=== PATIENT | male | born 1950 | race Caucasian/White ===

== ENCOUNTER 2017-06-21 10:48 | Day surgery (SDC) | payer MEDICARE, BC ==
[2017-06-15 15:35] VITALS: BMI 28.3
[~2017-06-21 10:48] MED LIST: ALPRAZolam 0.25 MG TAB PO PRN; ALPRAZolam 0.5 MG TAB PO PRN; ASPIRIN 325 MG TAB PO STA; NITROGLYCERIN SL TABS 0.4 MG TAB SUBLINGUAL PRN; SODIUM CHLORIDE 0.9% 1,000 ML in EMPTY BAG 1 BAG IV ONE
[2017-06-21] MEDS ORDERED: LIDOCAINE 2% INJ 20 MG/ML (20 ML MDV) ONE (12:22)
[2017-06-21] MEDS ORDERED: VERAPAMIL 2.5 MG/ML 2 ML AMP ONE (12:23)
[2017-06-21] MEDS ORDERED: MIDAZOLAM 2 MG/2 ML VIAL ONE (12:27)
[2017-06-21] MEDS ORDERED: MIDAZOLAM 2 MG/2 ML VIAL IVP ONE (12:29)
[2017-06-21] MEDS ORDERED: LIDOCAINE 2% INJ 20 MG/ML SQ ONE (12:31)
[2017-06-21] MEDS ORDERED: HEPARIN SODIUM 1,000 UN/ML (10ML VL) ONE (12:34)
[2017-06-21] MEDS ORDERED: VERAPAMIL SYRINGE (5 MG/10 ML) INTRAARTER ONE ×2 (12:36→12:49)
[2017-06-21] MEDS ORDERED: IOHEXOL 350 MG/ML 125ML BOTTLE INJ ONE (12:49)
[2017-06-21] MEDS ORDERED: RX INFO: IV CONTRAST WAS GIVEN 1 EACH MISC MISCELLANE PRN (13:02)
[2017-06-21] MEDS ORDERED: SODIUM CHLORIDE 0.9% 1,000 ML IV SCH (13:15)
--- NOTE | 2017-06-21 13:54 | CC ---
CARDIAC CATHETERIZATION REPORT DATE OF SERVICE: 06/21/2017 PERFORMING PHYSICIAN: Femi Landaverde MD, [employer]. PROCEDURE PERFORMED: 1. Selective right and left coronary angiogram. 2. Left heart catheterization. INDICATION: This is a pleasant 66-year-old gentleman who sees Dr. Peng as an outpatient at [facility], who is known to have coronary artery disease and prior stenting of the RCA was performed in [place] in 2000, was experiencing chest discomfort. He underwent a myocardial perfusion imaging stress test and that revealed anterior ischemia. In view of that, heart catheterization was recommended. APPROACH: Right radial artery. COMPLICATION: None. LEVEL OF SEDATION: Moderate with sedation length of 22 minutes. PROCEDURE DESCRIPTION: After obtaining an informed consent, the patient was brought to the Cardiac Reproduction Production Manager. The right radial artery was cannulated using micropuncture technique and a micropuncture wire passed easily, then I placed a 6-Divehi sheath in the right common femoral artery. Subsequently, I did give the patient 2 mg of verapamil IA and 10,000 units of heparin IV. After that, I did selective right and left coronary angiogram using JR4 and JL3.5 catheters. Subsequently, I did left heart catheterization and that was performed using the JR4 catheter which flipped into the LV. then I did pullback per protocol. The procedure was completed without any complication. SELECTIVE CORONARY ANGIOGRAM: 1. The right coronary artery is a large caliber vessel and it is a dominant vessel. The RCA is chronically occluded in the proximal portion and fills by collateral from the left coronary system. The RCA distally seems to be intermediate in size. The RCA in the mid portion is stented as well. 2. The left main is a large left main and the left main itself is involved in the plaque in the LAD. The left main bifurcates into the circumflex, ramus intermedius, and left anterior descending artery. 3. The left circumflex is a medium caliber vessel and it is a nondominant vessel. The ostial left circumflex has mild disease only. The mid left circumflex appeared to be angiographically normal and the left circumflex distally appeared to be angiographically normal. 4. The ramus intermedius is a large caliber vessel and it seems to have an ostial disease appeared to be in the range of appeared to be in the range of 70% to 80%. 5. The left anterior descending artery, the proximal LAD appears to have a critical lesion in the range of 70% to 80%. The LAD after the lesion gives rise into a large diagonal branch which worked as dual LAD system. That diagonal branch appeared to have a tight lesion in the midportion about 70%. The LAD in the mid and distal portion becomes a medium caliber vessel with mild diffuse disease only. HEMODYNAMICS: The left ventricular end-diastolic pressure was 8 mmHg and no gradient was identified across the aortic valve. CONCLUSION: 1. Chronic total occlusion of the mid right coronary artery which seems to be in-stent occlusion and the RCA fills by collaterals from the left coronary system. 2. The distal left main appeared to be involved in a complex plaque plaque involving the distal left main coronary artery and involving the ostial ramus intermedius and ostial LAD. 3. Severe disease involving the ostial/proximal ramus intermedius. 4. Critical disease involving the ostial/proximal left anterior descending artery. POSTPROCEDURE MANAGEMENT: 1. At this point, maximize medical treatment. 2. Evaluation for coronary artery bypass grafting. MMODL / IJN: [id number] /
[2017-06-21] MEDS ORDERED: ATORVASTATIN 10 MG TAB PO SCH (21:00)
[2017-06-22] MEDS ORDERED: LEVOTHYROXINE 75 MCG TAB PO SCH (06:30)
[2017-06-22 08:23] LABS: Basophils % (A) 0 %; Eosinophils # (A) 0.1 k/uL (0-0.7); Eosinophils % (A) 3 %; HCT 50.8 % (39.0-53.0); HGB 16.1 gm/dL (13.0-17.5); Lymphocytes # (A) 1.5 k/uL (1.0-4.8); Lymphocytes % (A) 27 %; MCH 31.1 pg (25.0-35.0); MCHC 31.7 g/dL (31.0-37.0); MCV 98.2 fL (80.0-100.0); Mean Platelet Volume 7.2; Monocytes # (A) 0.3 k/uL (0-1.0); Monocytes % (A) 6 %; Neutrophils # (A) 3.4 k/uL (1.3-7.7); Neutrophils % (A) 62 %; Platelet Count 197 k/uL (150-450); RBC 5.18 m/uL (4.30-5.90); RDW 12.9 % (11.5-15.5); WBC 5.5 k/uL (3.8-10.6)
[2017-06-22 08:32] LABS: INR 1.1 (<1.2); Partial Thromboplastin Time 23.7 sec (22.0-30.0); Prothrombin Time 10.5 sec (9.0-12.0)
[2017-06-22 08:43] LABS: ALT 50 U/L (21-72); AST 24 U/L (17-59); Alkaline Phosphatase 91 U/L (38-126); Anion Gap 10 mmol/L; Blood Urea Nitrogen 13 mg/dL (9-20); Calcium 9.6 mg/dL (8.4-10.2); Carbon Dioxide 27 mmol/L (22-30); Chloride 102 mmol/L (98-107); Cholesterol 174 mg/dL (<200); Glucose 101 mg/dL (74-99); HDL Cholesterol 44 mg/dL (40-60); LDL Cholesterol,Calculated 102 mg/dL (0-99); Magnesium 1.9 mg/dL (1.6-2.3); Potassium 4.6 mmol/L (3.5-5.1); Sodium 139 mmol/L (137-145); Total Bilirubin 0.6 mg/dL (0.2-1.3); Total Protein 6.5 g/dL (6.3-8.2); Triglycerides 140 mg/dL (<150)
[2017-06-22] MEDS ORDERED: LISINOPRIL 10 MG TAB PO SCH (09:00)
[2017-06-22 10:10] LABS: T4, Free (Free Thyroxine) 1.78 ng/dL (0.78-2.19)
[2017-06-22 10:27] LABS: Appearance,Urine Clear (Clear); Bilirubin,Urine Negative (Negative); Blood,Urine Negative (Negative); Color,Urine Yellow; Glucose,Urine (UA) Negative (Negative); Ketones,Urine Negative (Negative); Leukocyte Esterase,Urine Negative (Negative); Nitrite,Urine Negative (Negative); Protein,Urine Negative (Negative); Specific Gravity,Urine 1.008 (1.001-1.035); Urobilinogen,Urine <2.0 mg/dL (<2.0)
[2017-06-22] MEDS ORDERED: METOPROLOL TARTRATE 12.5 MG TAB PO SCH (10:30)
--- NOTE | 2017-06-22 11:06 | XR ---
EXAMINATION TYPE: XR chest 2V DATE OF EXAM: 06/22/2017 COMPARISON: NONE HISTORY: Preopen cardiac surgery. TECHNIQUE: Frontal and lateral views of the chest are obtained. FINDINGS: There is no focal air space opacity, pleural effusion, or pneumothorax seen. The cardiac silhouette size is within normal limits. The osseous structures are intact. IMPRESSION: No acute cardiopulmonary process.
[2017-06-22 11:31] VITALS: BP 119/69; PULSE 60; RESP 16; TEMP 98
--- NOTE | 2017-06-22 15:28 | P.CNPUL ---
History of Present Illness Consult date: 06/22/17 Requesting physician: Jamison Murillo Reason for consult: chest pain, other Chief complaint: Symptomatic multivessel coronary artery disease History of present illness: Kayode is a 66-year-old white male patient follows with Dr. Peng at [place], who presented for an elective heart catheterization and Dr. Reynolds on 06/21/2017 for his symptoms of chest discomfort. Patient has history of coronary artery disease and prior stenting of his RCA in [place] in 2000. He had a myocardial perfusion imaging stress test was positive for anterior ischemia. The heart catheterization was performed via right radial artery approach. During the cath he was found to have chronic total occlusion of his mid RCA, with in-stent occlusion and collateral circulation from the left coronary system. The distal left main was involved in a complex plaque involving the distal left main and the ostial ramus intermedius and ostial LAD. There was severe disease involving the ostial/proximal ramus intermedius. And there was critical disease involving the ostial/proximal LAD. Other medical history includes hypertension, hypothyroidism, psoriasis, Patient is a current every day smoker, less than a pack a day for 49 years. He does have regular consumption of 2 beers per night. He denies experiencing dyspnea on a regular basis. Patient was referred to cardiothoracic surgery for evaluation for coronary artery bypass grafting. This referral was in regards to evaluation of patient's preop pulmonary status. Review of Systems All systems: negative Constitutional: Denies chills, Denies fever Eyes: denies blurred vision, denies pain Ears, nose, mouth and throat: Denies headache, Denies sore throat Cardiovascular: Denies chest pain, Denies shortness of breath Respiratory: Denies cough Gastrointestinal: Denies abdominal pain, Denies diarrhea, Denies nausea, Denies vomiting Musculoskeletal: Denies myalgias Integumentary: Denies pruritus, Denies rash Neurological: Denies numbness, Denies weakness Psychiatric: Denies anxiety, Denies depression Endocrine: Denies fatigue, Denies weight change Past Medical History Past Medical History: Hypertension, Skin Disorder, Thyroid Disorder Additional Past Medical History / Comment(s): psoriasis History of Any Multi-Drug Resistant Organisms: None Reported Past Surgical History: Appendectomy, Heart Catheterization With Stent Additional Past Surgical History / Comment(s): heart stents x2,cervical x2 Past Anesthesia/Blood Transfusion Reactions: No Reported Reaction Date of Last Stent Placement:: 2000 Past Psychological History: No Psychological Hx Reported Smoking Status: Current every day smoker Past Alcohol Use History: Daily Additional Past Alcohol Use History / Comment(s): started smoking approx 17,< 1ppd,2 beers per night Past Drug Use History: None Reported - Past Family History Mother Family Medical History: Cancer Father Family Medical History: Coronary Artery Disease (CAD) Medications and Allergies Home Medications Medication Instructions Recorded Confirmed Type Aspirin 325 mg PO DAILY 06/15/17 06/21/17 History Ergocalciferol [Vitamin D2 50,000 unit PO GOSS 06/15/17 06/21/17 History (DRISDOL)] Folic Acid 1 mg PO MOTUWETHFRSA 06/15/17 06/15/17 History Levothyroxine Sodium [Synthroid] 150 mcg PO QAM 06/15/17 06/21/17 History Lisinopril [Zestril] 10 mg PO DAILY 06/15/17 06/21/17 History Methotrexate Sodium [Methotrexate] 17.5 mg PO GOSS 06/15/17 06/21/17 History Simvastatin [Zocor] 20 mg PO HS 06/15/17 06/21/17 History Allergies Allergy/AdvReac Type Severity Reaction Status Date / Time No Known Allergies Allergy Verified 06/15/17 15:25 Physical Exam Vitals: Vital Signs Temp Pulse Pulse Resp BP BP Pulse Ox 06/22/17 11:31 98 F 60 16 119/69 95 06/22/17 08:00 97.6 F 68 18 108/66 92 L 06/22/17 04:00 16 06/22/17 03:38 98.0 F 63 16 94/53 93 L 06/22/17 00:00 16 06/21/17 23:52 98.1 F 61 16 109/67 92 L 06/21/17 20:00 16 06/21/17 19:23 98.1 F 59 L 16 104/64 92 L 06/21/17 16:30 63 113/72 95 06/21/17 15:30 64 109/78 96 06/21/17 15:00 65 118/70 92 L 06/21/17 14:00 64 108/66 94 L 06/21/17 13:45 79 110/79 93 L 06/21/17 13:39 97.8 F 71 18 110/57 96 06/21/17 13:30 65 95/60 95 06/21/17 13:15 64 16 111/70 94 L 06/21/17 13:00 74 16 116/70 95 Intake and Output 06/21/17 06/22/17 06/22/17 22:59 06:59 14:59 Intake Total 860 440 Balance 860 440 Intake: Intake, IV Titration 500 Amount Sodium Chloride 0.9% 1, 500 000 ml @ 125 mls/hr IV . Q8H MAURILIO Rx#:[id number] Oral 360 440 Other: # Voids 1 GENERAL EXAM: Alert, pleasant, 66-year-old white male, comfortable in no apparent distress. HEAD: Normocephalic/atraumatic. EYES: Normal reaction of pupils, equal size. Conjunctiva pink, sclera white. NOSE: Clear with pink turbinates. THROAT: No erythema or exudates. NECK: No masses, no JVD, no thyroid enlargement, no adenopathy. CHEST: No chest wall deformity. Symmetrical expansion. LUNGS: Equal air entry with no crackles, wheeze, rhonchi or dullness. CVS: Regular rate and rhythm, normal S1 and S2, no gallops, no murmurs, no rubs ABDOMEN: Soft, nontender. No hepatosplenomegaly, normal bowel sounds, no guarding or rigidity. EXTREMITIES: No clubbing, no edema, no cyanosis, 2+ pulses and upper and lower extremities. Right radial puncture site is clean dry and intact, TR band is in place. MUSCULOSKELETAL: Muscle strength and tone normal. SPINE: No scoliosis or deformity SKIN: No rashes CENTRAL NERVOUS SYSTEM: Alert and oriented -3. No focal deficits, tone is normal in all 4 extremities. PSYCHIATRIC: Alert and oriented -3. Appropriate affect. Intact judgment and insight. Results - Laboratory Findings CBC and BMP: 06/22/17 07:52 06/22/17 07:52 PT/INR, D-dimer PT 10.5 sec (9.0-12.0) 06/22/17 07:52 INR 1.1 (<1.2) 06/22/17 07:52 Abnormal lab findings: Abnormal Labs 06/22/17 07:52 Glucose 101 H LDL Cholesterol, Calc 102 H TSH 0.042 L - Diagnostic Findings Chest x-ray: report reviewed Assessment and Plan Plan: Assessment: #1. Symptomatic, multivessel coronary artery disease involving severe disease of the ostial/proximal ramus intermedius, critical disease involving the ostial/ proximal LAD, distal left main, and chronic total occlusion of in-stent mid RCA #2. Hypertension #3. Nicotine dependence, ongoing, less than a pack a day for 49 years #4. Hypothyroidism #5. Psoriasis Plan: Spirometry PFT was reviewed, showed FEV1 of 94% of predicted. Patient's chest x -ray has been reviewed, no acute cardiopulmonary process noted. Patient is a low operative risk based on the results of the bedside spirometry, physical exam and history. We'll continue to follow with you I performed a history & physical examination of the patient and discussed their management with my nurse practitioner, Eileen Rice. I reviewed the nurse practitioner's note and agree with the documented findings and plan of care. Lung sounds are clear to auscultation. The findings and the impression was discussed with the patient. I attest to the documentation by the nurse practitioner. Time with Patient: Greater than 30
--- NOTE | 2017-06-22 15:45 | P.GSCN ---
History of Present Illness Consult date: 06/22/17 Reason for Consult: Coronary artery disease, evaluation for myocardial vascularization surgery. Requesting physician: Femi Landaverde History of present illness: This is a 66-year-old woman who is followed by Dr. Juaquin Peng on an outpatient basis. Patient has a past medical history which includes hypertension, hyperlipidemia, history of coronary artery disease with previous PTCA in 2000 in [facility], current tobacco dependence, hypothyroid, psoriasis on methotrexate, and family history of early onset coronary artery disease with his father being diagnosed before the age of 60. Recently, the patient has had complaints of progressing shortness of breath with activity. The patient denies any complaints of chest pain, nausea, vomiting, chills, fevers, dizziness or syncope. He followed up with his primary care physician and underwent a 12-lead EKG which was abnormal. Subsequently the patient was referred to Dr. Landaverde from cardiology for further workup and evaluation. On the patient underwent a Lexiscan Cardiolite stress test which showed ST depression of more than 1 mm over the baseline ST depression to his inferior lateral lead with frequent PVCs and couplets. This was highly suggestive of silent ischemia. On 05/25/2017 a 2-D echocardiogram was completed which showed trace mitral valve regurgitation, trace aortic valve regurgitation, a normal left ventricular size and systolic function with an ejection fraction of 55% and a dilated aortic root that measures 4.5 cm. Due to the patient's increased shortness of breath, history of previous stent placement, abnormal EKG and stress test patient was advised to undergo an elective cardiac catheterization. On 06/21/2017 after obtaining consent he underwent an elective heart catheterization which demonstrated a chronically occluded mid right coronary artery with an IntraStent stenosis which fills by collaterals from the left coronary system, a distal left main which showed involvement in the plaque in the LAD, mild disease to his left circumflex, a 70-80% stenosis to his ostial ramus intermedius coronary artery, a 70-80% stenosis to his proximal left anterior descending coronary artery and a 70% stenosis to his midportion of his diagonal coronary artery. Subsequently due to the above-mentioned results findings a consult was placed for Dr. Murillo from cardiothoracic surgery for evaluation for possible myocardial revascularization surgery. Review of Systems A 14 point review of systems was completed and was negative except as mentioned in the HPI. Past Medical History Past Medical History: Coronary Artery Disease (CAD), Hyperlipidemia, Hypertension, Skin Disorder (Psoriasis on methotrexate), Thyroid Disorder History of Any Multi-Drug Resistant Organisms: None Reported Past Surgical History: Appendectomy, Heart Catheterization With Stent Additional Past Surgical History / Comment(s): Coronary stents in 2000 at [facility],cervical fusion to his C4-C5, C5-C6. Past Anesthesia/Blood Transfusion Reactions: No Reported Reaction Date of Last Stent Placement:: 2000 Past Psychological History: No Psychological Hx Reported Smoking Status: Current every day smoker (Smokes 6 cigars per day.) Past Alcohol Use History: Daily (Drinks 2-7 beers per week.) Past Drug Use History: None Reported - Past Family History Mother Family Medical History: Cancer (Skin cancer) Father Family Medical History: Coronary Artery Disease (CAD) Medications and Allergies Home Medications Medication Instructions Recorded Confirmed Type Aspirin 325 mg PO DAILY 06/15/17 06/21/17 History Ergocalciferol [Vitamin D2 50,000 unit PO GOSS 06/15/17 06/21/17 History (DRISDOL)] Folic Acid 1 mg PO MOTUWETHFRSA 06/15/17 06/15/17 History Levothyroxine Sodium [Synthroid] 150 mcg PO QAM 06/15/17 06/21/17 History Lisinopril [Zestril] 10 mg PO DAILY 06/15/17 06/21/17 History Methotrexate Sodium [Methotrexate] 17.5 mg PO GOSS 06/15/17 06/21/17 History Simvastatin [Zocor] 20 mg PO HS 06/15/17 06/21/17 History Allergies Allergy/AdvReac Type Severity Reaction Status Date / Time No Known Allergies Allergy Verified 06/15/17 15:25 Surgical - Exam Vital Signs Temp Pulse Resp BP Pulse Ox 98.2 F 82 18 158/93 95 06/21/17 11:20 06/21/17 11:20 06/21/17 11:20 06/21/17 11:20 06/21/17 11:20 - General well developed, well nourished, no distress, no pain - Eyes PERRL, normal ocular movement - ENT normal pinna, normal nares, normal mucosa, no hearing loss, no congestion - Neck Neck is supple no lymphadenopathy. no masses, no bruits, trachea midline, no venous distension - Respiratory Lung sounds are essentially clear throughout, diminished bilateral bases. Respirations are symmetrical and nonlabored. Oxygen saturation are 95% on room air. He is achieving 2600 mL on his incentive spirometry. Bedside FEV1 completed by respiratory therapist 3.11 which is 94% of predicted. - Cardiovascular Regular rhythm and rate. S1 and S2 present, negative for S3, gallop or murmur. Remote telemetry showing normal sinus rhythm with ST depression heart rate 64. No edema present. Peripheral pulses palpable. - Abdomen Abdomen is soft, nontender and nondistended. No guarding or rigidity. No organomegaly. Active bowel sounds all 4 abdominal quadrants. - Genitourinary Deferred - Rectum Deferred - Integumentary Large birthmark to his left scapular area. no rash, no growths - Neurologic normal coordination, normal sensation - Musculoskeletal normal gait, normal posture - Psychiatric oriented to time, oriented to person, oriented to place, speech is normal, memory intact Results - Labs 06/22/17 07:52 06/22/17 07:52 Abnormal Lab Results - Last 24 Hours (Table) 06/22/17 Range/Units 07:52 Glucose 101 H (74-99) mg/dL LDL Cholesterol, Calc 102 H (0-99) mg/dL TSH 0.042 L (0.465-4.680) mIU/L Diabetes panel 06/22/17 Range/Units 07:52 Sodium 139 (137-145) mmol/L Potassium 4.6 (3.5-5.1) mmol/L Chloride 102 (98-107) mmol/L Carbon Dioxide 27 (22-30) mmol/L BUN 13 (9-20) mg/dL Creatinine 0.81 (0.66-1.25) mg/dL Glucose 101 H (74-99) mg/dL Calcium 9.6 (8.4-10.2) mg/dL AST 24 (17-59) U/L ALT 50 (21-72) U/L Alkaline Phosphatase 91 (38-126) U/L Total Protein 6.5 (6.3-8.2) g/dL Albumin 4.0 (3.5-5.0) g/dL Triglycerides 140 (<150) mg/dL HDL Cholesterol 44 (40-60) mg/dL Thyroid panel 06/22/17 Range/Units 07:52 TSH 0.042 L (0.465-4.680) mIU/L Calcium panel 06/22/17 Range/Units 07:52 Calcium 9.6 (8.4-10.2) mg/dL Albumin 4.0 (3.5-5.0) g/dL Pituitary panel 06/22/17 Range/Units 07:52 Sodium 139 (137-145) mmol/L Potassium 4.6 (3.5-5.1) mmol/L Chloride 102 (98-107) mmol/L Carbon Dioxide 27 (22-30) mmol/L BUN 13 (9-20) mg/dL Creatinine 0.81 (0.66-1.25) mg/dL Glucose 101 H (74-99) mg/dL Calcium 9.6 (8.4-10.2) mg/dL TSH 0.042 L (0.465-4.680) mIU/L Adrenal panel 06/22/17 Range/Units 07:52 Sodium 139 (137-145) mmol/L Potassium 4.6 (3.5-5.1) mmol/L Chloride 102 (98-107) mmol/L Carbon Dioxide 27 (22-30) mmol/L BUN 13 (9-20) mg/dL Creatinine 0.81 (0.66-1.25) mg/dL Glucose 101 H (74-99) mg/dL Calcium 9.6 (8.4-10.2) mg/dL Total Bilirubin 0.6 (0.2-1.3) mg/dL AST 24 (17-59) U/L ALT 50 (21-72) U/L Alkaline Phosphatase 91 (38-126) U/L Total Protein 6.5 (6.3-8.2) g/dL Albumin 4.0 (3.5-5.0) g/dL - Imaging Comments: Lexiscan Cardiolite stress test results reviewed which was completed on 2017. Stress test showed ST depression of more than 1 [address] the baseline [address] depression inferior lateral lead with frequent PVCs and couplets. This was highly suggestive of silent ischemia. 2-D echocardiogram results reviewed which was completed on 05/25/2017. It showed trace mitral valve regurgitation, trace aortic valve regurgitation, a normal left ventricular systolic function with an ejection fraction of 55%, and a dilated aortic root measuring 4.5 cm. Carotid duplex results reviewed which was completed on 05/26/2017. Carotid duplex showed 41-59% stenosis at both carotid sinuses and proximal internal carotid arteries. Bedside FEV1 completed showed a base of 3.11 and was 94% of predicted. Chest x-ray: report reviewed, image reviewed Additional studies: Cardiac catheterization films and report were reviewed. Assessment and Plan (1) Hypertension Current Visit: Yes Status: Acute Code(s): I10 - ESSENTIAL (PRIMARY) HYPERTENSION SNOMED Code(s): 44576516 (2) Hyperlipidemia Current Visit: Yes Status: Acute Code(s): E78.5 - HYPERLIPIDEMIA, UNSPECIFIED SNOMED Code(s): 65246750 (3) Hypothyroid Current Visit: Yes Status: Acute Code(s): E03.9 - HYPOTHYROIDISM, UNSPECIFIED SNOMED Code(s): 98091729 (4) Family history of early CAD Current Visit: Yes Status: Acute Code(s): Z82.49 - FAMILY HX OF ISCHEM HEART DIS AND OTH DIS OF THE CIRC SYS SNOMED Code(s): 764552449 (5) Psoriasis Current Visit: Yes Status: Acute Code(s): L40.9 - PSORIASIS, UNSPECIFIED SNOMED Code(s): 6485806 (6) Tobacco dependence Current Visit: Yes Status: Acute Code(s): F17.200 - NICOTINE DEPENDENCE, UNSPECIFIED, UNCOMPLICATED SNOMED Code(s): 63296333 (7) Presence of stent in coronary artery in patient with coronary artery disease Current Visit: Yes Status: Acute Code(s): I25.10 - ATHSCL HEART DISEASE OF [place] CORONARY ARTERY W/O ANG PCTRS; Z95.5 - PRESENCE OF CORONARY ANGIOPLASTY IMPLANT AND GRAFT SNOMED Code(s): 160133382 Plan: The patient was seen and examined. His chart and diagnostics were reviewed. Preoperative testing was initiated, bedside FEV1 was obtained, and vein mapping. Preoperative teaching initiated with the patient, his and son. Questions answered to the best of my ability. The patient will be discharged home today when okay with Dr. Landaverde from cardiology, he will follow up on Tuesday , 06/24/2017 at 11:[address] Murillo in his office. 5 m walk test was obtained by cardiac rehab, time 1: 3.18 seconds, time 2: 3.22 seconds, time 3: 3.41 seconds. Maximize medical therapy at this time, metoprolol 12.5 mg by mouth twice a day initiated, continue statin, AMADO inhibitor and aspirin. Hold methotrexate. The importance of smoking cessation has been discussed with the patient. STS risk score has been calculated 0.562% risk of mortality and will be discussed with the patient on Tuesday during his office visit by Dr. Murillo. Thank you Dr. Landaverde for this consult and we look for to working with you in the care of your patient. Time with Patient: Greater than 30
--- NOTE | 2017-06-22 19:25 | DS ---
DISCHARGE SUMMARY ADMISSION DATE: June 21, 2017. DISCHARGE DATE: June 22, 2017 BRIEF HISTORY: This is a pleasant 66-year-old gentleman with a known hypertension and dyslipidemia who was experiencing chest discomfort and underwent myocardial perfusion imaging stress test came in to be abnormal. In view of that, heart catheterization was recommended. The patient was admitted to the hospital and underwent heart catheterization yesterday and that revealed severe triple-vessel coronary artery disease with chronic total occlusion of the RCA and critical disease involving the LAD and ramus intermedius. Surgical consult was placed and the patient was seen and evaluated by Dr. Murillo who is planning to perform coronary artery bypass grafting on the patient in the next few days. The patient is going to be discharged home today. He is on maximize medical treatment and I will follow up with him at [facility] and he is going to see Dr. Murillo in the office in the next few days and planning for surgery in the next week. MMODL / IJN: [id number] /
[2017-06-22 19:52] LABS: Hepatitis A Antibody IgM Non-Reactive (Non-Reactive); Hepatitis B Core IgM Non-Reactive (Non-Reactive)
[2017-06-22 21:58] LABS: Hemoglobin A1C 6.2 % (4.0-6.0)
--- NOTE | 2017-06-29 10:30 | P.ARTDOP ---
Arterial Doppler LOWER EXTREMITY ARTERIAL DOPPLER: DATE OF SERVICE: 06/22/2017 Reason for study: Pre-CABG. Doppler waveforms: Multiphasic bilaterally throughout. Pulse volume recording: []. Pressure gradients: None. Ankle-brachial indices: Greater than 1 bilaterally. Toe pressures: [] on the right, [] on the left Impression: Normal study.
--- NOTE | 2017-06-29 10:32 | P.VSCSTY ---
Greater Saphenous Vein Mapping This is bilateral lower extremity greater saphenous vein mapping. Date of service 06/22/2017 Vein quality and ultrasound appearance no wall thickening or intraluminal thrombus. Vein size groin right 6.3 x 6.2 groin left 9 x 7.9 High thigh right 6.9 x 6.1 high thigh left 6.9 x 6.0 Mid thigh right 4.4 x 3.9 mid thigh left 6.2 x 5.2 Above-knee right 4.2 x 3.3 above-knee left 5.2 x 3.5 Below knee right 3.7 x 3.6 below-knee left 3.5 x 3.1 Mid calf right 2.4 x 2.0 mid calf left 2.8 x 2.3 Ankle right 2.6 x 1.9 ankle left 3.4 x 2.6 Impression usable bilateral greater saphenous veins. Upper thighs somewhat oversized on both sides..
== END 2017-06-22 15:05 | disposition home or self-care (01) ==
LOC: CATHCVL 10:48 → 3OBS 13:24 → CATHCVL 06-22 15:05
PROVIDERS: ATTEND Internal Medicine Interventional Cardiology
DX: I25.110 Atherosclerotic heart disease of native coronary artery with unstable angina pectoris (principal); I25.82 Chronic total occlusion of coronary artery; I10 Essential (primary) hypertension; F17.290 Nicotine dependence, other tobacco product, uncomplicated; I77.810 Thoracic aortic ectasia; I35.1 Nonrheumatic aortic (valve) insufficiency; E78.5 Hyperlipidemia, unspecified; I73.9 Peripheral vascular disease, unspecified; Z82.49 Family history of ischemic heart disease and other diseases of the circulatory system; E03.9 Hypothyroidism, unspecified; L40.9 Psoriasis, unspecified; Z95.5 Presence of coronary angioplasty implant and graft; Z79.82 Long term (current) use of aspirin; Z79.899 Other long term (current) drug therapy
CPT/HCPCS: 94150; 93458; 86900; 86901; 84439; 83880; 80061; 80053; 80074; 84443; 83735; 84484; 85025; 85610; 85730; 86850; 86920; 81003; 87070; 87086; 83036; 71046; 93970; 93922; C1894; J2001; J2250; J1644; Q9967; 93923

== ENCOUNTER → 2017-07-06 | Outpatient (CLI) | payer MEDICARE, BC ==
[2017-07-06 11:43] LABS: INR 1.1 (<1.2); Partial Thromboplastin Time 22.5 sec (22.0-30.0); Prothrombin Time 10.6 sec (9.0-12.0)
[2017-07-06 11:44] LABS: HCT 48.8 % (39.0-53.0); HGB 17.1 gm/dL (13.0-17.5); MCH 32.7 pg (25.0-35.0); Mean Platelet Volume 7.2; Platelet Count 202 k/uL (150-450); RBC 5.23 m/uL (4.30-5.90); RDW 13.1 % (11.5-15.5); WBC 5.1 k/uL (3.8-10.6)
[2017-07-06 11:52] LABS: MCV 93.3 fL (80.0-100.0)
[2017-07-06 11:58] LABS: ALT 49 U/L (21-72); AST 24 U/L (17-59); Albumin 4.5 g/dL (3.5-5.0); Alkaline Phosphatase 91 U/L (38-126); Anion Gap 11 mmol/L; Blood Urea Nitrogen 21 mg/dL (9-20); Calcium 9.9 mg/dL (8.4-10.2); Carbon Dioxide 27 mmol/L (22-30); Chloride 102 mmol/L (98-107); Glucose 94 mg/dL (74-99); Potassium 5.7 mmol/L (3.5-5.1); Sodium 140 mmol/L (137-145); Total Bilirubin 0.5 mg/dL (0.2-1.3); Total Protein 7.3 g/dL (6.3-8.2)
== END | disposition home or self-care (01) ==
LOC: LABPAT 10:31
PROVIDERS: ATTEND Surgery
DX: Z01.818 Encounter for other preprocedural examination (principal); E11.52 Type 2 diabetes mellitus with diabetic peripheral angiopathy with gangrene
CPT/HCPCS: 80053; 85027; 85610; 85730; 86850; 86900; 86901; 86920

== ENCOUNTER 2017-07-11 05:37 | Inpatient (IN) | payer MEDICARE, BC ==
[~2017-07-11 05:37] MED LIST changes: +ALBUMIN HUMAN 25% 50 ML IV ONE; +ALBUMIN HUMAN 5% 500 ML IVPB ONE; -ALPRAZolam 0.25 MG TAB PO PRN; -ALPRAZolam 0.5 MG TAB PO PRN; +ASPIRIN 325 MG TAB PO ONE; -ASPIRIN 325 MG TAB PO STA; +ATORVASTATIN 10 MG TAB PO ONE; +CALCIUM CHLORIDE 100 MG/ML 10 ML SYRINGE IV ONE; +CHLORHEXIDINE GLUCONATE 15 ML CUP MUCOUS MEM ONE; +CLEVIDIPINE BUTYRATE 25 MG in EMPTY BAG 1 BAG IV ONE; +DEXTROSE 5% IN WATER 1,000 ML with POTASSIUM CHLORIDE 110 MEQ, MAGNESIUM SULFATE 16 MEQ... IV ONE; +DEXTROSE 5% IN WATER 1,000 ML with POTASSIUM CHLORIDE 25 MEQ, SODIUM CHLORIDE 2.5MEQ/ML... IV ONE; +HEPARIN SODIUM 1,000 UN/ML (10ML VL) IV ONE; +HEPARIN SODIUM,PORCINE 5,000 UNIT in SODIUM CHLORIDE 0.9% 500 ML IV ONE; +INSULIN REGULAR 100 UNIT in SODIUM CHLORIDE 0.9% 100 ML IV ONE; +LACTATED RINGERS 1,000 ML IV ONE; +LACTATED RINGERS 1,000 ML IV SCH; +MAGNESIUM SULFATE MG 500 MG/ML VIAL IV ONE; +MANNITOL 25% 12.5 GM/50 ML VIAL IV ONE; +METOPROLOL TARTRATE 12.5 MG TAB PO ONE; +MUPIROCIN 2% OINT 22 GM TUBE NASAL ONE; +NITROGLYCERIN SL TABS 0.4 MG TAB SUBLINGUAL ONE; -NITROGLYCERIN SL TABS 0.4 MG TAB SUBLINGUAL PRN; +NITROGLYCERIN-D5W PMX 25 MG/250 ML BTL IV ONE; +NITROGLYCERIN-D5W PMX 50 MG in DEXTROSE/WATER 1 250ML.BAG IV ONE; +NOREPINEPHRIN 4 MG-0.9% NS PMX 4 MG/250 ML ML IV ONE; +PAPAVERINE 360 MG in SODIUM CHLORIDE 0.9% 90 ML IV ONE; +PHENYLEPHRINE 40 MG in SODIUM CHLORIDE 0.9% 250 ML IV ONE; +PHENYLEPHRINE-0.9% NACL SYG 1 MG/10 ML SYRINGE IV ONE; +PROPOFOL 1,000 MG/100 ML VIAL IV ONE; +PROTAMINE SULFATE 10 MG/ML 25 ML VIAL IV ONE; +PROTAMINE SULFATE 250 MG in EMPTY BAG 1 BAG IV ONE; +SODIUM BICARB 8.4% 50 ML SYR (1 MEQ/ML) IV ONE; +SODIUM CHLORIDE 0.9% 1,000 ML IV ONE; -SODIUM CHLORIDE 0.9% 1,000 ML in EMPTY BAG 1 BAG IV ONE; +TRANEXAMIC ACID 2,000 MG in SODIUM CHLORIDE 0.9% 180 ML IV ONE; +ceFAZolin 1,000 MG in SODIUM CHLORIDE 0.9% IRRIGATIO 1,000 ML IRRIGATION ONE; +ceFAZolin 2,000 MG in SODIUM CHLORIDE 0.9% 30 ML IVPB ONE
[2017-07-11] MEDS ORDERED: LIDOCAINE 1% 20 ML VIAL (10MG/ML) FOR IV START INTRADERMA ONE (06:44)
[2017-07-11] MEDS ORDERED: LIDOCAINE 2% SYG (PF) 100 MG/5 ML ONE (08:00)
[2017-07-11] MEDS ORDERED: HEPARIN SODIUM,PORCINE 10,000 UNIT/ML 1 ML VIAL ONE (08:00)
[2017-07-11] MEDS ORDERED: TRANEXAMIC ACID 1,000 MG/10 ML VIAL ONE (08:00)
[2017-07-11] MEDS ORDERED: PROPOFOL 10 MG/ML 20 ML VIAL IV ONE (08:00)
[2017-07-11] MEDS ORDERED: GLYCOPYRROLATE 0.2 MG/ML 2 ML VIAL ONE (08:00)
[2017-07-11] MEDS ORDERED: ALBUMIN HUMAN 5% 500 ML VIAL IVPB ONE (08:00)
[2017-07-11] MEDS ORDERED: SODIUM CHLORIDE 0.9% IRRIG 1,000 ML BTL IRRIGATION ONE (08:00)
[2017-07-11] MEDS ORDERED: ePHEDrine SULFATE/0.9% NACL/PF 50 MG/5 ML SYRINGE IV ONE (08:00)
[2017-07-11] MEDS ORDERED: MAGNESIUM SULFATE 4 MEQ/ML 2 ML VIAL ONE (08:00)
[2017-07-11] MEDS ORDERED: MIDAZOLAM 2 MG/2 ML VIAL ONE (08:00)
[2017-07-11] MEDS ORDERED: fentaNYL (PF) 50 MCG/ML 50 ML VIAL ONE (08:00)
[2017-07-11] MEDS ORDERED: fentaNYL (PF) 50 MCG/ML 2 ML AMP ONE (08:00)
[2017-07-11] MEDS ORDERED: PROTAMINE SULFATE 10 MG/ML 25 ML VIAL IV ONE (08:00)
[2017-07-11] MEDS ORDERED: VECURONIUM 10 MG VIAL IV ONE (08:00)
[2017-07-11] MEDS ORDERED: MORPHINE SULFATE 10 MG/ML SYRINGE ONE (08:00)
[2017-07-11] MEDS ORDERED: ELECTROLYTE-R (PH 7.4) 1,000 ML IV.SOLN IV ONE (08:00)
[2017-07-11] MEDS ORDERED: SODIUM CHLORIDE 0.9% 250 ML BAG ONE (08:00)
[2017-07-11] MEDS ORDERED: ONDANSETRON 4 MG/2 ML VIAL IVP PRN (16:03)
[2017-07-11] MEDS ORDERED: BENZOCAINE/MENTHOL LOZENG 1 EACH LOZENGE MUCOUS MEM PRN (16:03)
[2017-07-11] MEDS ORDERED: MORPHINE SULFATE 4 MG/ML SYRINGE IVP PRN (16:03)
[2017-07-11] MEDS ORDERED: CALCIUM GLUCONATE 2,000 MG in SODIUM CHLORIDE 0.9% 100 ML IVPB PRN (16:03)
[2017-07-11] MEDS ORDERED: Potassium Replacement Protocol 1 EACH MISC MISCELLANE PRN (16:03)
[2017-07-11] MEDS ORDERED: INSULIN REGULAR 100 UNIT in SODIUM CHLORIDE 0.9% 100 ML IV SCH (16:03)
[2017-07-11] MEDS ORDERED: Magnesium Replacement Protocol 1 EACH MISC MISCELLANE PRN (16:03)
[2017-07-11] MEDS ORDERED: METOCLOPRAMIDE 5 MG/ML 2 ML VIAL IVP PRN (16:03)
[2017-07-11] MEDS ORDERED: CLEVIDIPINE BUTYRATE 25 MG in EMPTY BAG 1 BAG IV SCH (16:03)
[2017-07-11] MEDS ORDERED: NITROGLYCERIN-D5W PMX 50 MG in DEXTROSE/WATER 1 250ML.BAG IV SCH (16:03)
[2017-07-11] MEDS ORDERED: Phosphorus Replacement Protoco 1 EACH MISC MISCELLANE PRN (16:03)
[2017-07-11] MEDS ORDERED: NALOXONE 0.4 MG/ML 1 ML VIAL IV PRN (16:11)
[2017-07-11] MEDS: PROPOFOL 1,000 MG in EMPTY BAG 1 BAG IV SCH ×2 (16:15→21:52)
[2017-07-11 16:28] LABS: Glucose,Whole Blood 83 mg/dL (75-99)
[2017-07-11 16:43] LABS: Basophils % (A) 0 %; Eosinophils # (A) 0.1 k/uL (0-0.7); Eosinophils % (A) 1 %; HCT 32.4 % (39.0-53.0); Lymphocytes # (A) 1.2 k/uL (1.0-4.8); Lymphocytes % (A) 17 %; MCH 32.3 pg (25.0-35.0); MCHC 34.9 g/dL (31.0-37.0); MCV 92.4 fL (80.0-100.0); Mean Platelet Volume 7.1; Monocytes # (A) 0.3 k/uL (0-1.0); Monocytes % (A) 4 %; Neutrophils # (A) 5.8 k/uL (1.3-7.7); Neutrophils % (A) 78 %; RBC 3.51 m/uL (4.30-5.90); RDW 13.4 % (11.5-15.5); WBC 7.4 k/uL (3.8-10.6)
[2017-07-11 16:44] LABS: HGB 11.3 gm/dL (13.0-17.5); Platelet Count 99 k/uL (150-450)
[2017-07-11 16:47] LABS: INR 1.3 (<1.2); Partial Thromboplastin Time 29.4 sec (22.0-30.0)
[2017-07-11 16:50] LABS: ABG Base Excess -2.6 mmol/L; ABG HCO3 26 mmol/L (21-25); ABG Oxygen Saturation 97.2 % (94-97); ABG PO2 110 mmHg (83-108); ABG TCO2 28 mmol/L (19-24)
[2017-07-11] MEDS ORDERED: ALBUMIN HUMAN 5% 250 ML IVPB ONE (16:53)
[2017-07-11 16:54] LABS: ALT 30 U/L (21-72); AST 32 U/L (17-59); Albumin 3.6 g/dL (3.5-5.0); Alkaline Phosphatase 31 U/L (38-126); Anion Gap 8 mmol/L; Blood Urea Nitrogen 12 mg/dL (9-20); Calcium 8.2 mg/dL (8.4-10.2); Carbon Dioxide 25 mmol/L (22-30); Chloride 109 mmol/L (98-107); Glucose 72 mg/dL (74-99); Magnesium 2.6 mg/dL (1.6-2.3); Potassium 4.7 mmol/L (3.5-5.1); Sodium 142 mmol/L (137-145); Total Bilirubin 0.7 mg/dL (0.2-1.3); Total Protein 5.2 g/dL (6.3-8.2)
[2017-07-11 16:58] LABS: ABG PH 7.18 (7.35-7.45)
[2017-07-11 16:59] LABS: ABG PCO2 70 mmHg (35-45)
--- NOTE | 2017-07-11 17:12 | OP ---
OPERATIVE REPORT DATE OF SERVICE: 07/11/2017. SURGEON: Jamison Murillo MD. FAMILY PRACTICE DOCTOR: Musa Holloway and Dav Sandhu. PREOPERATIVE DIAGNOSES: 1. Triple-vessel coronary artery disease. 2. Totally occluded right coronary artery. 3. Preserved left ventricular function. 4. Psoriasis, on methotrexate. 5. Hypertension. 6. Hyperlipidemia. 7. Peripheral arterial disease. 8. Nicotine abuse. POSTOPERATIVE DIAGNOSES: 1. Triple-vessel coronary artery disease. 2. Totally occluded right coronary artery. 3. Preserved left ventricular function. 4. Psoriasis, on methotrexate. 5. Hypertension. 6. Hyperlipidemia. 7. Peripheral arterial disease. 8. Nicotine abuse. 9. Mild dilatation of the ascending aorta with diffuse coronary artery disease. PROCEDURE: 1. Coronary artery bypass grafting x4 using the in situ skeletonized right internal mammary artery, crossing the midline to the left anterior descending artery, the skeletonized in situ left internal mammary artery to the ramus intermedius artery, reverse saphenous vein graft from the aorta to the diagonal artery, reverse saphenous vein graft from the aorta to early rising posterior descending artery. 2. Endoscopic harvesting of right greater saphenous vein. 3. Intraoperative transesophageal echocardiogram and epiaortic scanning. 4. Intraoperative graft flow measurements using the Medistim system if indicated. INDICATIONS FOR SURGERY: Patient is a 66-year-old gentleman referred by Dr. Landaverde with diagnosis of triple-vessel carotid artery disease. He had an occluded collateralized right coronary artery. He has an LAD system that has a long diagonal, almost dual system, and disease in the ramus intermedius artery. No disease in a smaller circ vessel. The right coronary artery is totally collateralized by the left side. Left ventricular function is preserved. The patient is brought in today for coronary artery bypass grafting. We will be using bilateral internal mammary in view of his age. His methotrexate has been stopped for around 1 month now and has been 1 month with smoking cessation. Risks, benefits, and alternatives were discussed with him. He understood and agreed to proceed. DESCRIPTION OF PROCEDURE: The patient had a right internal jugular Jay-Mari catheter inserted in the preoperative holding area and a right radial arterial line. He had normal cardiac index and good PA pressure. When this was completed, he was was brought to the operating room where general endotracheal anesthesia was induced uneventfully. The patient received 2 g of cefazolin intravenously. The chest, abdomen and both lower extremities were prepped and draped using ChloraPrep after insertion of a Huber catheter. Transesophageal echocardiogram revealed preserved left ventricle function and an aortic root at 3.8 cm and no significant valvular abnormality. Midline sternotomy was performed and no bone wax was used. The left navneet sternum was elevated. The left internal mammary artery was harvested in a totally skeletonized fashion. The left pleura was intentionally opened in this process and was drained with a 28-Bolivian chest tube. The same maneuver was repeated on the right side with the right navneet sternum elevated and the right internal mammary artery harvested in a totally skeletonized fashion. The right pleura was intentionally opened in this process and was drained with a 28-Bolivian chest tube. In the same setting, the right greater saphenous vein was harvested endoscopically from groin to above ankle level after administration of 2500 units of heparin. Mediastinal fat transected between 2 ties and epiaortic scanning revealed no protruding atheroma in the ascending aorta. Pericardium was opened in an inverted T-fashion and a pericardial cradle was created. Findings included a mildly enlarged aorta that was measured at around 4 cm, thickened intima, normal size heart with diffuse coronary artery disease that was calcific in nature proximally and at the level of the right coronary artery. After systemic heparinization after placement of respective pledgeted pursestring, aortic cannulation with a 21-Bolivian soft flow cannula, right atrial appendage cannulation with a dual stage venous cannula was performed. Antegrade as well as retrograde cardioplegia catheter were placed. Both mammary arteries were clipped distally before the bifurcation and transected and had an excellent pulsatile flow in them. They were thin-walled, around 1.75 mm in diameter. Next, cardioplegia bypass was initiated and with the heart empty and warm, we looked at the target. The left anterior descending artery was thin-walled and on the small side in its mid to distal aspect. The diagonal artery was longer, however, was also diffusely diseased with calcific plaques proximally and midway. The ramus intermedius artery was intramyocardial and severely calcified, but we found a spot in its mid to distal aspect which was soft. The right coronary artery system was calcified after the bifurcation. There was an early rising posterior descending artery and it was bypassed in its proximal aspect where it was thin-walled around 1.5 mm in diameter. The aorta was clamped and myocardial protection was achieved with initial dose of antegrade cold blood cardioplegia, followed by a dose of retrograde cold blood cardioplegia. All subsequent doses were given retrograde as well through the constructed vein graft to the posterior descending artery, which was done first. So, the first distal anastomosis was between a segment of very good quality saphenous vein graft and the early rising posterior descending artery using Prolene 7-0 in continuous fashion. The second distal anastomosis was in the left internal mammary artery and ramus intermedius artery, which was around 2 mm diameter, intramyocardial in a soft area after a calcified segment using Prolene 7-0 in continuous fashion. The mammary artery was tacked to the surrounding myocardial muscle with a Prolene 7-0. The third distal anastomosis was between another segment of vein and the diagonal artery using Prolene 7-0 in continuous fashion. The fourth and last distal anastomosis was between the right internal mammary artery and the left anterior descending artery using Prolene 7-0 in continuous fashion. That artery reached the left anterior descending artery with adequate length and no tension. However, it would not reach the diagonal artery in the same setting to perform a sequential anastomosis, which we entertained. Satisfied with the distal anastomosis, attention was moved to performing the two proximal anastomoses. Rewarming was started. Two buttons. Two buttons, one on the anterior aspect of the proximal aorta, and one on the posterolateral aspect of the mid ascending aorta, were punched out and the two proximal anastomoses with 2 vein grafts were completed using Prolene 2-0 in a continuous fashion. Lidocaine and magnesium were given before unclamping the aorta. Both veins were de-aired before establishing flow in them. The patient required one single desufflation to regain spontaneous sinus rhythm. Preliminary graft flow measurements revealed patent grafts. After a period of reperfusion, will wean off cardioplegia bypass without the need of any inotropic or vasopressor support. Two monopolar atrial pacing wires were affixed to the right atrial appendage. One bipolar ventricular pacing wires was driven via the anterior aspect of the right ventricle and the exit site required a Prolene 6-0 to control bleeding at that level. The rest of the full dose protamine was given. Decannulation followed. The aortic cannulation site and the retrograde cardioplegia site as well as the antegrade cardioplegia site required reinforcement with pledgeted Prolene. Also, I placed a transverse pledgetted Prolene 4-0 at the distal aspect of the proximal anastomosis of the vein graft going to the diagonal artery. One substernal chest tube was placed. Graft flow measurements at this point revealed a flow of 127 mL/minute in the vein going to the diagonal artery, 43 mL/minute in the vein going to the posterior descending artery with excellent flows. The flow into the right internal mammary artery to the left anterior descending artery was 39 mL/minute, pulsatility index of 2.1, diastolic filling of 75% showing excellent graft. The flow into the left internal mammary artery to the ramus intermedius artery was 15 mL/minute, pulsatility index of 2.6, and diastolic filling of 79% with what seems to be a very well-functioning graft. Pericardial fat was approximated over the heart and the aorta and the right internal mammary artery crossing the midline. After ensuring adequate hemostasis and hemodynamic and after correct sponge, instrument, and needle count, the sternum was approximated using five [id number] pineal cable after interposing Fibrillar between the sternal edges. Thorough irrigation of cefazolin followed. The rest of the closure proceeded in layers. Skin glue sealant was applied. The patient received 1 L of Cell Saver blood and did not receive any blood bank product. He was transferred to the ICU, atrially paced at 80 in view of sinus bradycardia, mean arterial pressure of 82, PA pressure of 17 with normal EKG. The DEEPTI showed preserved left ventricular function. MMODL / IJN: [id number] /
[2017-07-11 17:26] LABS: ABG Base Excess -1.6 mmol/L; ABG HCO3 26 mmol/L (21-25); ABG Oxygen Saturation 91.9 % (94-97); ABG PCO2 59 mmHg (35-45); ABG PH 7.25 (7.35-7.45); ABG PO2 68 mmHg (83-108); ABG TCO2 28 mmol/L (19-24)
[2017-07-11] MEDS ORDERED: NOREPINEPHRIN 16 MG-0.9%NS PMX 16 MG/250 ML ML IV SCH (17:30)
[2017-07-11 17:34] LABS: Glucose,Whole Blood 69 mg/dL (75-99)
[2017-07-11 17:39] LABS: Glucose,Whole Blood 91 mg/dL (75-99)
--- NOTE | 2017-07-11 17:42 | XR ---
EXAMINATION TYPE: XR chest 1V portable DATE OF EXAM: 07/11/2017 COMPARISON: 06/22/2017 HISTORY: Cardiac surgery TECHNIQUE: Single frontal view of the chest is obtained. FINDINGS: Endotracheal tube is in good position. There is right jugular catheter with tip in the claudia n pulmonary artery. There are bilateral chest tubes. There is no sign of a pneumothorax. There is mil d pulmonary vascular congestion. Cardiac silhouette is enlarged. IMPRESSION: There is evidence of mild heart failure. No pneumothorax.
[2017-07-11] MEDS: ceFAZolin IN SWFI 2 GM/20 ML SYRINGE IVP SCH ×2 (17:43→23:53)
[2017-07-11] MEDS: ACETAMINOPHEN IV (For NPO) 1,000 MG in EMPTY BAG 1 BAG IVPB SCH ×2 (17:47→23:53)
[2017-07-11] MEDS: LACTATED RINGERS 1,000 ML IV SCH (18:02)
[2017-07-11] MEDS: ALBUMIN HUMAN 5% 250 ML in EMPTY BAG 1 BAG IVPB PRN ×2 (18:15→18:16)
[2017-07-11 18:40] LABS: Glucose,Whole Blood 105 mg/dL (75-99)
[2017-07-11 19:11] LABS: Glucose,Whole Blood 120 mg/dL (75-99)
[2017-07-11] MEDS: IPRATROPIUM-ALBUTEROL 3 ML NEB INHALATION SCH ×2 (19:21→23:16)
[2017-07-11 19:26] LABS: Basophils % (A) 0 %; Eosinophils % (A) 1 %; HCT 29.4 % (39.0-53.0); HGB 10.1 gm/dL (13.0-17.5); Lymphocytes # (A) 0.7 k/uL (1.0-4.8); Lymphocytes % (A) 12 %; MCHC 34.3 g/dL (31.0-37.0); MCV 93.4 fL (80.0-100.0); Mean Platelet Volume 7.6; Monocytes # (A) 0.3 k/uL (0-1.0); Monocytes % (A) 5 %; Neutrophils # (A) 4.4 k/uL (1.3-7.7); Neutrophils % (A) 81 %; Platelet Count 101 k/uL (150-450); RBC 3.15 m/uL (4.30-5.90); RDW 13.6 % (11.5-15.5); WBC 5.4 k/uL (3.8-10.6)
--- NOTE | 2017-07-11 19:31 | P.CNPUL ---
History of Present Illness Consult date: 07/11/17 Requesting physician: Jamison Murillo Reason for consult: other (Status post CABG) Chief complaint: status post CABG History of present illness: this is a 66-year-old white male with triple-vessel coronary artery disease, this was documented on recent cardiac catheterization, patient has preserved LV function. Patient underwent elective myocardial revascularization today, postoperatively he was on mechanical ventilation, and this consult was initiated. Initial ventilator settings with IMV of 12, volume of 550, FiO2 of 100%, and the 5. ABG reflected significant respiratory acidosis, has the patient was placed on assist-control mode of mechanical ventilation initially and a of 16 then increased rate of 20. Repeat ABG is pending. Chest x-ray postoperatively showed adequate placement of endotracheal Q, all lines and chest usual noted to be in place. All labs were reviewed including 2 different sets of ABGs. Review of Systems cannot be obtained, patient is on mechanical ventilation, Past Medical History Past Medical History: Coronary Artery Disease (CAD), Hyperlipidemia, Hypertension, Skin Disorder, Thyroid Disorder Additional Past Medical History / Comment(s): psoriasis. History of Any Multi-Drug Resistant Organisms: None Reported Past Surgical History: Appendectomy, Back Surgery, Heart Catheterization, Heart Catheterization With Stent Additional Past Surgical History / Comment(s): heart stents x2 (2000).,heart cath (06/21/17 mph) cervical surgery x2. Past Anesthesia/Blood Transfusion Reactions: No Reported Reaction, Motion Sickness Date of Last Stent Placement:: 2000 Past Psychological History: No Psychological Hx Reported Smoking Status: Former smoker Past Alcohol Use History: Daily Additional Past Alcohol Use History / Comment(s): QUIT SMOKING 06/2017. , STARTED SMOKING AGE 17 SMOKED , 1PPD. DRINKS 2 BEERS PER NIGHT. Past Drug Use History: None Reported - Past Family History Mother Family Medical History: Cancer Father Family Medical History: Coronary Artery Disease (CAD) Medications and Allergies Home Medications Medication Instructions Recorded Confirmed Type Aspirin 325 mg PO DAILY 06/15/17 07/11/17 History Ergocalciferol [Vitamin D2 50,000 unit PO GOSS 06/15/17 07/11/17 History (DRISDOL)] Folic Acid 1 mg PO MOTUWETHFRSA 06/15/17 07/11/17 History Levothyroxine Sodium [Synthroid] 150 mcg PO QAM 06/15/17 07/11/17 History Lisinopril [Zestril] 10 mg PO DAILY 06/15/17 07/11/17 History Methotrexate Sodium [Methotrexate] 17.5 mg PO GOSS 06/15/17 07/11/17 History Simvastatin [Zocor] 20 mg PO HS 06/15/17 07/11/17 History Metoprolol Tartrate [Lopressor] 25 mg PO BID 07/04/17 07/11/17 History Allergies Allergy/AdvReac Type Severity Reaction Status Date / Time No Known Allergies Allergy Verified 07/11/17 16:35 Physical Exam Vitals: Vital Signs Temp Pulse Pulse Resp BP BP Pulse Ox 07/11/17 18:15 99.1 F 84 98 07/11/17 18:13 82 07/11/17 18:01 84 21 07/11/17 18:00 84 91 L 07/11/17 17:45 84 93 L 07/11/17 17:30 84 82 L 07/11/17 17:15 81 96 07/11/17 17:00 97.3 F L 84 16 97 07/11/17 16:45 87 95 07/11/17 16:30 84 100 07/11/17 16:21 84 99 07/11/17 06:18 155/89 07/11/17 06:07 98.0 F 52 L 18 152/79 98 Intake and Output 07/11/17 07/11/17 07/11/17 06:59 14:59 22:59 Intake Total 200 3 1720.7 Output Total 4410 Balance 200 3 -2689.3 Intake: IV 200 3 316 Lactated Ringers 1,000 ml 200 @ 50 mls/hr IV .Q20H [facility]URIL[facility] Rx#:[id number] NS Pressure Bag 36 [place] 80 Intake, IV Titration 1404.7 Amount ACETAMINOPHEN IV (For NPO 100 ) 1,000 mg In Empty Bag 1 bag @ 400 mls/hr IVPB Q6HR PENDING SALE TO [facility] Rx#:[id number] Albumin Human 5% 250 ml 1250 As IVPB .STK-MED ONE Rx#: [id number] Propofol 1,000 mg In 24.7 Empty Bag 1 bag @ Titrate IV .Q0M PENDING SALE TO [facility] Rx#: [id number] ceFAZolin 2,000 mg In 30 Sodium Chloride 0.9% 30 ml @ Per Protocol IVPB ONCE ONE Rx#:[id number] Output: Chest Tube Drainage 660 Chest Tube Left Anterior 277 Chest Chest Tube Mediastinal 285 Chest Tube Right Anterior 98 Chest Drainage 35 Right Calf 35 Urine 1215 Estimated Blood Loss 2500 Other: Voiding Method Indwelling Catheter ABP, PAP, CO, CI - Last 8 Hours Arterial Blood Pressure 112/52 Arterial Blood Pressure 116/59 Arterial Blood Pressure 103/48 Arterial Blood Pressure 106/59 Arterial Blood Pressure 108/60 Arterial Blood Pressure 89/41 Arterial Blood Pressure 80/43 Arterial Blood Pressure 99/48 Pulmonary Artery Pressure 36/15 Pulmonary Artery Pressure 39/25 Pulmonary Artery Pressure 36/20 Pulmonary Artery Pressure 39/23 Pulmonary Artery Pressure 33/20 Pulmonary Artery Pressure 25/16 Pulmonary Artery Pressure 34/18 Pulmonary Artery Pressure 30/17 Cardiac Output 7.6 Cardiac Output 7.2 Cardiac Output 7.2 Cardiac Output 7.2 Cardiac Output 7.2 Cardiac Output 7.6 Cardiac Output 7.6 Cardiac Index 3.9 Cardiac Index 3.7 physical exam reveals a 66-year-old white male, on mechanical ventilation, in no form of respiratory distress. Head: Atraumatic, normocephalic. HEENT: PERRLA, EOMI, throat is clear, moist mucous membranes noted, endotracheal tube is in place, no neck masses, no JVD, no stridor. Chest: Good breath sounds bilaterally, no crackles or rhonchi or wheezes. Symmetrical chest expansion. cardiac: Normal S1 and S2, positive pericardial rub. No S3 gallop. No murmur was appreciated. Abdomen: Soft, nontender, no thyromegaly, no rebound, no guarding, positive bowel sounds. Extremities: Good distal pulses bilaterally, no clubbing, no edema, no cyanosis. Neurologic: Cannot be assessed, patient is sedated on mechanical ventilation. Psychiatric: Cannot be assessed. Musculoskeletal: Cannot be assessed. Results - Laboratory Findings CBC and BMP: 07/11/17 16:25 07/11/17 16:25 ABG ABG pH 7.25 (7.35-7.45) L 07/11/17 17:23 ABG pCO2 59 mmHg (35-45) H 07/11/17 17:23 ABG pO2 68 mmHg (83-108) L 07/11/17 17:23 ABG O2 Saturation 91.9 % (94-97) L 07/11/17 17:23 PT/INR, D-dimer PT 12.0 sec (9.0-12.0) 07/11/17 16:25 INR 1.3 (<1.2) H 07/11/17 16:25 Abnormal lab findings: Abnormal Labs 07/06/17 07/11/17 07/11/17 10:36 16:25 16:25 RBC 3.51 L Hgb 11.3 L D Hct 32.4 L Plt Count 99 L D INR ABG pH ABG pCO2 ABG pO2 ABG HCO3 ABG Total CO2 ABG O2 Saturation Chloride 109 H Glucose 72 L POC Glucose (mg/dL) Calcium 8.2 L Magnesium 2.6 H Alkaline Phosphatase 31 L Total Protein 5.2 L Crossmatch See Detail 07/11/17 07/11/17 07/11/17 16:25 16:47 17:23 RBC Hgb Hct Plt Count INR 1.3 H ABG pH 7.18 L* 7.25 L ABG pCO2 70 H* 59 H ABG pO2 110 H 68 L ABG HCO3 26 H 26 H ABG Total CO2 28 H 28 H ABG O2 Saturation 97.2 H 91.9 L Chloride Glucose POC Glucose (mg/dL) Calcium Magnesium Alkaline Phosphatase Total Protein Crossmatch 07/11/17 07/11/17 07/11/17 17:23 18:38 19:09 RBC Hgb Hct Plt Count INR ABG pH ABG pCO2 ABG pO2 ABG HCO3 ABG Total CO2 ABG O2 Saturation Chloride Glucose POC Glucose (mg/dL) 69 L 105 H 120 H Calcium Magnesium Alkaline Phosphatase Total Protein Crossmatch - Diagnostic Findings Chest x-ray: image reviewed ( Chest x-ray postoperatively was reviewed.) Assessment and Plan Assessment: Impression: 1 Status post CABG for triple-vessel coronary artery disease postoperative day #0. 2 history of multiple comorbidities including hypertension, psoriasis, hypercholesterolemia, and hypothyroidism. Recommendation: Continue present course of mechanical ventilation, ventilator settings were adjusted accordingly to the ABG, expect significant improvement in his respiratory acidosis, keep the patient on assist control mode of mechanical ventilation with a relatively high rate, we will likely wean and extubate later the same day. Chest x-ray was reviewed We will continue to follow. Time with Patient: Greater than 30
[2017-07-11 19:35] LABS: ABG Base Excess -0.9 mmol/L; ABG HCO3 25 mmol/L (21-25); ABG Oxygen Saturation 98.9 % (94-97); ABG PCO2 46 mmHg (35-45); ABG PH 7.34 (7.35-7.45); ABG PO2 145 mmHg (83-108); ABG TCO2 26 mmol/L (19-24)
[2017-07-11 20:20] LABS: Glucose,Whole Blood 121 mg/dL (75-99)
[2017-07-11 21:20] LABS: Glucose,Whole Blood 125 mg/dL (75-99)
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
[2017-07-11 22:01] LABS: Glucose,Whole Blood 122 mg/dL (75-99)
[2017-07-11 22:07] LABS: Basophils % (A) 0 %; Eosinophils % (A) 0 %; HCT 29.1 % (39.0-53.0); HGB 9.7 gm/dL (13.0-17.5); Lymphocytes # (A) 0.6 k/uL (1.0-4.8); Lymphocytes % (A) 11 %; MCH 31.1 pg (25.0-35.0); MCHC 33.4 g/dL (31.0-37.0); MCV 93.1 fL (80.0-100.0); Mean Platelet Volume 9.2; Monocytes # (A) 0.3 k/uL (0-1.0); Monocytes % (A) 5 %; Neutrophils # (A) 4.8 k/uL (1.3-7.7); Neutrophils % (A) 83 %; RBC 3.13 m/uL (4.30-5.90); RDW 13.6 % (11.5-15.5); WBC 5.8 k/uL (3.8-10.6)
[2017-07-11 22:08] LABS: Platelet Count 86 k/uL (150-450)
[2017-07-11] MEDS: MUPIROCIN 2% OINT 22 GM TUBE NASAL SCH (22:31)
[2017-07-11 23:28] LABS: Glucose,Whole Blood 120 mg/dL (75-99)
[2017-07-11] MEDS: HEPARIN SODIUM,PORCINE 5,000 UNIT/ML 1 ML VIAL SQ SCH (23:53)
[2017-07-12 00:09] LABS: Glucose,Whole Blood 120 mg/dL (75-99)
[2017-07-12 01:00] LABS: Glucose,Whole Blood 125 mg/dL (75-99)
[2017-07-12 02:21] LABS: Glucose,Whole Blood 128 mg/dL (75-99)
[2017-07-12 02:32] LABS: ABG Base Excess -0.5 mmol/L; ABG HCO3 25 mmol/L (21-25); ABG Oxygen Saturation 94.2 % (94-97); ABG PCO2 40 mmHg (35-45); ABG PH 7.39 (7.35-7.45); ABG PO2 65 mmHg (83-108); ABG TCO2 26 mmol/L (19-24)
[2017-07-12] MEDS: IPRATROPIUM-ALBUTEROL 3 ML NEB INHALATION SCH ×4 (02:52→19:48)
[2017-07-12 03:16] LABS: Glucose,Whole Blood 130 mg/dL (75-99)
[2017-07-12 04:18] LABS: Glucose,Whole Blood 126 mg/dL (75-99)
[2017-07-12 04:38] LABS: Basophils % (A) 0 %; Eosinophils % (A) 0 %; HCT 29.4 % (39.0-53.0); HGB 10.2 gm/dL (13.0-17.5); Lymphocytes # (A) 0.6 k/uL (1.0-4.8); Lymphocytes % (A) 11 %; MCH 31.8 pg (25.0-35.0); MCHC 34.5 g/dL (31.0-37.0); Mean Platelet Volume 7.5; Monocytes # (A) 0.3 k/uL (0-1.0); Monocytes % (A) 5 %; Neutrophils # (A) 4.5 k/uL (1.3-7.7); Neutrophils % (A) 82 %; Platelet Count 105 k/uL (150-450); RDW 13.5 % (11.5-15.5); WBC 5.5 k/uL (3.8-10.6)
[2017-07-12 04:50] LABS: INR 1.2 (<1.2); Partial Thromboplastin Time 27.2 sec (22.0-30.0); Prothrombin Time 11.3 sec (9.0-12.0)
[2017-07-12 05:01] LABS: Glucose,Whole Blood 123 mg/dL (75-99)
[2017-07-12 05:01] LABS: Ionized Calcium 4.9 mg/dL (4.5-5.3)
[2017-07-12 05:14] LABS: ALT 26 U/L (21-72); AST 35 U/L (17-59); Albumin 3.7 g/dL (3.5-5.0); Alkaline Phosphatase 33 U/L (38-126); Anion Gap 8 mmol/L; Blood Urea Nitrogen 13 mg/dL (9-20); Calcium 8.6 mg/dL (8.4-10.2); Carbon Dioxide 26 mmol/L (22-30); Chloride 107 mmol/L (98-107); Glucose 116 mg/dL (74-99); Magnesium 2.3 mg/dL (1.6-2.3); Phosphorus 3.9 mg/dL (2.5-4.5); Potassium 4.3 mmol/L (3.5-5.1); Sodium 141 mmol/L (137-145); Total Bilirubin 0.8 mg/dL (0.2-1.3); Total Protein 5.3 g/dL (6.3-8.2)
[2017-07-12] MEDS: ALBUMIN HUMAN 5% 250 ML in EMPTY BAG 1 BAG IVPB PRN ×3 (06:44→19:15)
[2017-07-12] MEDS: ACETAMINOPHEN IV (For NPO) 1,000 MG in EMPTY BAG 1 BAG IVPB SCH ×3 (06:49→17:27)
[2017-07-12] MEDS: LEVOTHYROXINE 75 MCG TAB PO SCH (07:00)
[2017-07-12 07:22] LABS: Glucose,Whole Blood 136 mg/dL (75-99)
[2017-07-12] MEDS: KETOROLAC 30 MG/ML 1 ML VIAL IVP SCH ×3 (07:39→17:27)
[2017-07-12] MEDS ORDERED: FUROSEMIDE 10 MG/ML 2 ML VIAL IV ONE (08:11)
--- NOTE | 2017-07-12 08:11 | XR ---
EXAMINATION TYPE: XR chest 1V DATE OF EXAM: 07/12/2017 HISTORY: Shortness of breath. COMPARISON: 07/11/2017 TECHNIQUE: Single view of the chest is submitted. FINDINGS: Bilateral chest tubes are in place. Small less than 10% pneumothoraces are seen bilaterally. [place]-Fili z catheter is unchanged in position. Endotracheal and NG tubes have been removed. Mediastinal drain i s in place. Scattered linear and focal infiltrates persist. IMPRESSION: 1. Tiny bilateral pneumothoraces are noted. 2. Scattered areas of airspace infiltrate and atelectasis remain essentially unchanged.
[2017-07-12 08:14] LABS: Glucose,Whole Blood 120 mg/dL (75-99)
[2017-07-12] MEDS: HEPARIN SODIUM,PORCINE 5,000 UNIT/ML 1 ML VIAL SQ SCH ×2 (08:29→17:27)
[2017-07-12] MEDS: MUPIROCIN 2% OINT 22 GM TUBE NASAL SCH ×2 (08:30→21:23)
[2017-07-12] MEDS: ASPIRIN 325 MG TAB PO SCH (08:30)
[2017-07-12] MEDS: CLOPIDOGREL 75 MG TAB PO SCH (08:30)
[2017-07-12] MEDS: ATORVASTATIN 40 MG TAB PO SCH (08:30)
[2017-07-12] MEDS ORDERED: METOPROLOL TARTRATE 12.5 MG TAB PO SCH (09:00)
[2017-07-12] MEDS ORDERED: PANTOPRAZOLE 40 MG/10 ML VIAL IVP SCH (09:00)
[2017-07-12 09:02] LABS: Glucose,Whole Blood 113 mg/dL (75-99)
[2017-07-12] MEDS: ceFAZolin IN SWFI 2 GM/20 ML SYRINGE IVP SCH (09:09)
--- NOTE | 2017-07-12 09:35 | P.PN ---
Subjective Progress Note Date: 07/12/17 Principal diagnosis: Triple-vessel coronary artery disease, totally occluded right coronary artery, preserved left ventricular function with a preoperative ejection fraction of 55% , mild dilation of his ascending, hypertension, hyperlipidemia, history of coronary artery disease with previous PTCA in [address] [facility], current tobacco dependence, hypothyroid, psoriasis on methotrexate, peripheral arterial disease and family history of early onset coronary artery disease with his father being diagnosed before the age of 60. POD #1, elective coronary artery bypass grafting 4 using the in situ skeletonized right internal mammary artery, crossing the midline to the left anterior descending coronary artery, the skeletonized in situ left internal mammary artery to the ramus intermedius coronary artery, a reverse greater saphenous vein graft from the aorta to the diagonal coronary artery, a reverse greater saphenous vein graft from the aorta to early rising posterior descending coronary artery. Endoscopic harvesting of the right greater saphenous vein. Intraoperative transesophageal echocardiogram and epi-aortic scanning. Intraoperative graft flow measurement using the [employer] system. Patient is sitting up to the bedside chair. He is in no acute distress. He currently rates his pain 9 out of 10 on the pain scale to his chest tube insertion sites. Oxygen saturation are 94% on 8 L high flow oxygen. He is achieving 500 mL on his incentive spirometry. He is alert and oriented 3. He is tolerating oral intake. Objective - Vital Signs Vital signs: Vital Signs Temp 99.7 F H 07/11/17 19:00 Pulse 88 07/12/17 08:00 Resp 23 07/12/17 08:00 BP 99/60 07/12/17 08:00 Pulse Ox 93 L 07/12/17 08:00 Intake & Output 07/11/17 07/12/17 07/12/17 18:59 06:59 18:59 Intake Total 1664.7 1247.692 828 Output Total 4265 1423 295 Balance -2600.3 -175.308 533 Weight 93.8 kg Intake: IV 260 1108 528 ACETAMINOPHEN IV (For NPO 100 100 ) 1,000 mg In Empty Bag 1 bag @ 400 mls/hr IVPB Q6HR [facility] Rx#:[id number] Albumin Human 5% 250 ml 250 As IVPB .STK-MED ONE Rx#: [id number] Lactated Ringers 1,000 ml 150 600 100 @ 50 mls/hr IV .Q20H [facility]IL[facility] Rx#:[id number] NS Pressure Bag 27 108 18 [place] 80 300 60 Intake, IV Titration 1404.7 139.692 Amount ACETAMINOPHEN IV (For NPO 100 ) 1,000 mg In Empty Bag 1 bag @ 400 mls/hr IVPB Q6HR [facility] Rx#:[id number] Albumin Human 5% 250 ml 1250 As IVPB .STK-MED ONE Rx#: [id number] Insulin Regular 100 unit 1.908 In Sodium Chloride 0.9% 100 ml @ Per Protocol IV .Q0M [facility] Rx#:[id number] Norepinephrin 16 mg-0.9% 49.626 Ns Pmx 16 mg In 250 ml @ Titrate IV .Q0M [facility] Rx#: [id number] Propofol 1,000 mg In 24.7 88.158 Empty Bag 1 bag @ Titrate IV .Q0M [facility] Rx#: [id number] ceFAZolin 2,000 mg In 30 Sodium Chloride 0.9% 30 ml @ Per Protocol IVPB ONCE ONE Rx#:[id number] Oral 300 Output: Chest Tube Drainage 615 658 120 Chest Tube Left Anterior 277 198 30 Chest Chest Tube Mediastinal 255 348 70 Chest Tube Right Anterior 83 112 20 Chest Drainage 35 10 Right Calf 35 10 Urine 1115 765 165 Estimated Blood Loss 2500 Other: Voiding Method Indwelling Catheter Indwelling Catheter ABP, PAP, CO, CI - Last Documented Arterial Blood Pressure 91/40 Pulmonary Artery Pressure 21/8 Cardiac Output 7.7 Cardiac Index 3.9 - Constitutional General appearance: Present: cooperative, no acute distress - EENT ENT: Present: hearing grossly normal - Neck Details: No JVD, no supple, no lymphadenopathy. Right IJ Cordis with [place]Mari catheter in place and functioning. - Respiratory Details: Lung sounds are essentially clear throughout, diminished to his bilateral bases left greater than right. Respirations are symmetrical and nonlabored. Oxygen saturation are 94% on 8 L high flow nasal cannula. He is achieving 500 mL on his incentive spirometry. Mediastinal, left and right pleural chest tubes in place and are to low continuous wall suction -20 cm H2O. No air leak present. Draining thin serosanguineous drainage. Mediastinal chest tube with 260 mL output in the last 8 hours, 500 mL output last 24 hours. Left pleural chest tube with 110 mL output in the last 8 hours, 300 mL output since surgery. Right pleural chest tube with 85 mL output in the last 8 hours, 170 mL output since surgery. - Cardiovascular Details: Regular rhythm and rate, S1 and S2 present, negative for S3, gallop or murmur. Pericardial rub heard. Sternum is stable. Bedside telemetry showing normal sinus rhythm with occasional PVC, heart rate 87. Heart hugger's in place and he is demonstrating appropriate use. Knee-high IGGY hose and sequential compression devices in place to his bilateral lower extremities. Current CO 9.5 , CI 4.9, PA pressures 32/10, CVP 11. Atrial and ventricular epicardial pacemaker wires intact and to backup bedside pacemaker generator. - Gastrointestinal Gastrointestinal Comment(s): Abdomen is soft, nontender and nondistended. Hypoactive bowel sounds to all 4 abdominal quadrants. Tolerating oral intake. - Genitourinary Genitourinary Comment(s): Urine output adequate, clear yellow urine. Huber catheter for accurate I&O. 475 mL output in the last 8 hours. - Integumentary Integumentary Comment(s): Skin is warm, and dry. No clubbing or cyanosis. Midline sternal incision clean dry and well approximated. No redness or drainage present. Dermabond dressing clean and dry. Right lower extremity EVH site clean dry and well approximated. No redness or drainage. NINA drain in place evacuating thin serosanguineous drainage. 10 mL output in the last 8 hours, 45 mL output since surgery. - Neurologic Neurologic: Present: CNII-XII intact - Musculoskeletal Musculoskeletal: Present: gait normal, strength equal bilaterally - Psychiatric Psychiatric: Present: A&O x's 3, appropriate affect, intact judgment & insight - Allied health notes Allied health notes reviewed: nursing - Labs CBC & Chem 7: 07/12/17 04:15 07/12/17 04:15 Labs: Abnormal Lab Results - Last 24 Hours (Table) 07/06/17 07/11/17 07/11/17 Range/Units 10:36 16:25 16:25 RBC 3.51 L (4.30-5.90) m/uL Hgb 11.3 L D (13.0-17.5) gm/dL Hct 32.4 L (39.0-53.0) % Plt Count 99 L D (150-450) k/uL Lymphocytes # (1.0-4.8) k/uL INR (<1.2) ABG pH (7.35-7.45) ABG pCO2 (35-45) mmHg ABG pO2 (83-108) mmHg ABG HCO3 (21-25) mmol/L ABG Total CO2 (19-24) mmol/L ABG O2 Saturation (94-97) % Chloride 109 H (98-107) mmol/L Glucose 72 L (74-99) mg/dL POC Glucose (mg/dL) (75-99) mg/dL Calcium 8.2 L (8.4-10.2) mg/dL Magnesium 2.6 H (1.6-2.3) mg/dL Alkaline Phosphatase 31 L (38-126) U/L Total Protein 5.2 L (6.3-8.2) g/dL Crossmatch See Detail 07/11/17 07/11/17 07/11/17 Range/Units 16:25 16:47 17:23 RBC (4.30-5.90) m/uL Hgb (13.0-17.5) gm/dL Hct (39.0-53.0) % Plt Count (150-450) k/uL Lymphocytes # (1.0-4.8) k/uL INR 1.3 H (<1.2) ABG pH 7.18 L* 7.25 L (7.35-7.45) ABG pCO2 70 H* 59 H (35-45) mmHg ABG pO2 110 H 68 L (83-108) mmHg ABG HCO3 26 H 26 H (21-25) mmol/L ABG Total CO2 28 H 28 H (19-24) mmol/L ABG O2 Saturation 97.2 H 91.9 L (94-97) % Chloride (98-107) mmol/L Glucose (74-99) mg/dL POC Glucose (mg/dL) (75-99) mg/dL Calcium (8.4-10.2) mg/dL Magnesium (1.6-2.3) mg/dL Alkaline Phosphatase (38-126) U/L Total Protein (6.3-8.2) g/dL Crossmatch 07/11/17 07/11/17 07/11/17 Range/Units 17:23 18:38 19:09 RBC (4.30-5.90) m/uL Hgb (13.0-17.5) gm/dL Hct (39.0-53.0) % Plt Count (150-450) k/uL Lymphocytes # (1.0-4.8) k/uL INR (<1.2) ABG pH (7.35-7.45) ABG pCO2 (35-45) mmHg ABG pO2 (83-108) mmHg ABG HCO3 (21-25) mmol/L ABG Total CO2 (19-24) mmol/L ABG O2 Saturation (94-97) % Chloride (98-107) mmol/L Glucose (74-99) mg/dL POC Glucose (mg/dL) 69 L 105 H 120 H (75-99) mg/dL Calcium (8.4-10.2) mg/dL Magnesium (1.6-2.3) mg/dL Alkaline Phosphatase (38-126) U/L Total Protein (6.3-8.2) g/dL Crossmatch 07/11/17 07/11/17 07/11/17 Range/Units 19:15 19:30 20:19 RBC 3.15 L (4.30-5.90) m/uL Hgb 10.1 L (13.0-17.5) gm/dL Hct 29.4 L (39.0-53.0) % Plt Count 101 L (150-450) k/uL Lymphocytes # 0.7 L (1.0-4.8) k/uL INR (<1.2) ABG pH 7.34 L (7.35-7.45) ABG pCO2 46 H (35-45) mmHg ABG pO2 145 H (83-108) mmHg ABG HCO3 (21-25) mmol/L ABG Total CO2 26 H (19-24) mmol/L ABG O2 Saturation 98.9 H (94-97) % Chloride (98-107) mmol/L Glucose (74-99) mg/dL POC Glucose (mg/dL) 121 H (75-99) mg/dL Calcium (8.4-10.2) mg/dL Magnesium (1.6-2.3) mg/dL Alkaline Phosphatase (38-126) U/L Total Protein (6.3-8.2) g/dL Crossmatch 07/11/17 07/11/17 07/11/17 Range/Units 21:19 21:59 22:00 RBC 3.13 L (4.30-5.90) m/uL Hgb 9.7 L (13.0-17.5) gm/dL Hct 29.1 L (39.0-53.0) % Plt Count 86 L (150-450) k/uL Lymphocytes # 0.6 L (1.0-4.8) k/uL INR (<1.2) ABG pH (7.35-7.45) ABG pCO2 (35-45) mmHg ABG pO2 (83-108) mmHg ABG HCO3 (21-25) mmol/L ABG Total CO2 (19-24) mmol/L ABG O2 Saturation (94-97) % Chloride (98-107) mmol/L Glucose (74-99) mg/dL POC Glucose (mg/dL) 125 H 122 H (75-99) mg/dL Calcium (8.4-10.2) mg/dL Magnesium (1.6-2.3) mg/dL Alkaline Phosphatase (38-126) U/L Total Protein (6.3-8.2) g/dL Crossmatch 07/11/17 07/12/17 07/12/17 Range/Units 23:26 00:07 00:58 RBC (4.30-5.90) m/uL Hgb (13.0-17.5) gm/dL Hct (39.0-53.0) % Plt Count (150-450) k/uL Lymphocytes # (1.0-4.8) k/uL INR (<1.2) ABG pH (7.35-7.45) ABG pCO2 (35-45) mmHg ABG pO2 (83-108) mmHg ABG HCO3 (21-25) mmol/L ABG Total CO2 (19-24) mmol/L ABG O2 Saturation (94-97) % Chloride (98-107) mmol/L Glucose (74-99) mg/dL POC Glucose (mg/dL) 120 H 120 H 125 H (75-99) mg/dL Calcium (8.4-10.2) mg/dL Magnesium (1.6-2.3) mg/dL Alkaline Phosphatase (38-126) U/L Total Protein (6.3-8.2) g/dL Crossmatch 07/12/17 07/12/17 07/12/17 Range/Units 02:19 02:29 03:15 RBC (4.30-5.90) m/uL Hgb (13.0-17.5) gm/dL Hct (39.0-53.0) % Plt Count (150-450) k/uL Lymphocytes # (1.0-4.8) k/uL INR (<1.2) ABG pH (7.35-7.45) ABG pCO2 (35-45) mmHg ABG pO2 65 L (83-108) mmHg ABG HCO3 (21-25) mmol/L ABG Total CO2 26 H (19-24) mmol/L ABG O2 Saturation (94-97) % Chloride (98-107) mmol/L Glucose (74-99) mg/dL POC Glucose (mg/dL) 128 H 130 H (75-99) mg/dL Calcium (8.4-10.2) mg/dL Magnesium (1.6-2.3) mg/dL Alkaline Phosphatase (38-126) U/L Total Protein (6.3-8.2) g/dL Crossmatch 07/12/17 07/12/17 07/12/17 Range/Units 04:15 04:15 04:15 RBC 3.20 L (4.30-5.90) m/uL Hgb 10.2 L (13.0-17.5) gm/dL Hct 29.4 L (39.0-53.0) % Plt Count 105 L (150-450) k/uL Lymphocytes # 0.6 L (1.0-4.8) k/uL INR 1.2 H (<1.2) ABG pH (7.35-7.45) ABG pCO2 (35-45) mmHg ABG pO2 (83-108) mmHg ABG HCO3 (21-25) mmol/L ABG Total CO2 (19-24) mmol/L ABG O2 Saturation (94-97) % Chloride (98-107) mmol/L Glucose 116 H (74-99) mg/dL POC Glucose (mg/dL) (75-99) mg/dL Calcium (8.4-10.2) mg/dL Magnesium (1.6-2.3) mg/dL Alkaline Phosphatase 33 L (38-126) U/L Total Protein 5.3 L (6.3-8.2) g/dL Crossmatch 07/12/17 07/12/17 07/12/17 Range/Units 04:16 04:53 07:20 RBC (4.30-5.90) m/uL Hgb (13.0-17.5) gm/dL Hct (39.0-53.0) % Plt Count (150-450) k/uL Lymphocytes # (1.0-4.8) k/uL INR (<1.2) ABG pH (7.35-7.45) ABG pCO2 (35-45) mmHg ABG pO2 (83-108) mmHg ABG HCO3 (21-25) mmol/L ABG Total CO2 (19-24) mmol/L ABG O2 Saturation (94-97) % Chloride (98-107) mmol/L Glucose (74-99) mg/dL POC Glucose (mg/dL) 126 H 123 H 136 H (75-99) mg/dL Calcium (8.4-10.2) mg/dL Magnesium (1.6-2.3) mg/dL Alkaline Phosphatase (38-126) U/L Total Protein (6.3-8.2) g/dL Crossmatch 07/12/17 07/12/17 Range/Units 08:12 09:00 RBC (4.30-5.90) m/uL Hgb (13.0-17.5) gm/dL Hct (39.0-53.0) % Plt Count (150-450) k/uL Lymphocytes # (1.0-4.8) k/uL INR (<1.2) ABG pH (7.35-7.45) ABG pCO2 (35-45) mmHg ABG pO2 (83-108) mmHg ABG HCO3 (21-25) mmol/L ABG Total CO2 (19-24) mmol/L ABG O2 Saturation (94-97) % Chloride (98-107) mmol/L Glucose (74-99) mg/dL POC Glucose (mg/dL) 120 H 113 H (75-99) mg/dL Calcium (8.4-10.2) mg/dL Magnesium (1.6-2.3) mg/dL Alkaline Phosphatase (38-126) U/L Total Protein (6.3-8.2) g/dL Crossmatch - Imaging and Cardiology Chest x-ray: report reviewed, image reviewed Assessment and Plan (1) CAD (coronary artery disease) Current Visit: Yes Status: Acute Priority: High Code(s): I25.10 - ATHSCL HEART DISEASE OF [place] CORONARY ARTERY W/O ANG PCTRS SNOMED Code(s): 75997964 (2) Psoriasis Current Visit: Yes Status: Chronic Priority: Medium Code(s): L40.9 - PSORIASIS, UNSPECIFIED SNOMED Code(s): 6667772 (3) Family history of early CAD Current Visit: No Status: Acute Code(s): Z82.49 - FAMILY HX OF [place] HEART DIS AND OTH DIS OF THE CIRC SYS SNOMED Code(s): 836903002 (4) Hyperlipidemia Current Visit: No Status: Acute Code(s): E78.5 - HYPERLIPIDEMIA, UNSPECIFIED SNOMED Code(s): 17428318 (5) Presence of stent in coronary artery in patient with coronary artery disease Current Visit: No Status: Acute Code(s): I25.10 - ATHSCL HEART DISEASE OF [place] CORONARY ARTERY W/O ANG PCTRS; Z95.5 - PRESENCE OF CORONARY ANGIOPLASTY IMPLANT AND GRAFT SNOMED Code(s): 368511975 (6) Tobacco dependence Current Visit: No Status: Acute Code(s): F17.200 - NICOTINE DEPENDENCE, UNSPECIFIED, UNCOMPLICATED SNOMED Code(s): 94504253 (7) Hypertension Current Visit: No Status: Chronic Priority: Medium Code(s): I10 - ESSENTIAL (PRIMARY) HYPERTENSION SNOMED Code(s): 79434860 (8) Hypothyroid Current Visit: No Status: Chronic Priority: Medium Code(s): E03.9 - HYPOTHYROIDISM, UNSPECIFIED SNOMED Code(s): 53486279 Plan: 1. Continue aspirin, Plavix, subcu heparin, and beta jennifer. We will maximize his beta jennifer as tolerated. 2. Wean oxygen as tolerated to keep his oxygen saturations greater than or equal to 91%. Pulmonary management per Dr. Lantigua's recommendations. 3. Encourage use of his incentive spirometry every hour while awake. 4. Pain control per when necessary orders. We will add Toradol 15 mg IV push every 6 hours. 5. We will restart his Synthroid home dose. 6. Lasix 10 mg IV push 1 today. 7. We will monitor his daily labs and chest x-ray. 8. His chest tubes will remain in place today to low continuous wall suction. 9. Discontinue his [place]Mari catheter place his cordis to continuous CVP monitoring. 10. GI and DVT prophylaxis. 11. Continue to hold methotrexate. 12. Increase activity as tolerated, consult physical therapy and cardiac rehab. 13. Medical management per primary care service. 14. Further recommendations to follow as the patient progresses in his care. Time with Patient: Greater than 30
[2017-07-12 10:10] VITALS: BMI 30.5
[2017-07-12 10:12] LABS: Glucose,Whole Blood 105 mg/dL (75-99)
--- NOTE | 2017-07-12 10:50 | P.PN ---
Subjective Progress Note Date: 07/12/17 Principal diagnosis: patient is seen and examined in follow up for medical management Patient was seen and examined today, he was extubated after midnight and did well after extubation. He is currently reporting that pain is well controlled. End reports that recovery is within his expectations. Denies any active concerns at this time, and eager to recover soon. Did not pass a bowel movement since surgery he has a Huber catheter in place, he is breathing comfortably denies any coughing or fevers. Denies any abdominal pain Objective - Vital Signs Vital signs: Vital Signs Temp 99.7 F H 07/11/17 19:00 Pulse 80 07/12/17 10:41 Resp 27 H 07/12/17 10:00 BP 99/60 07/12/17 08:30 Pulse Ox 92 L 07/12/17 10:00 Intake & Output 07/11/17 07/12/17 07/12/17 18:59 06:59 18:59 Intake Total 1664.7 1247.692 955.578 Output Total 4265 1423 771 Balance -2600.3 -175.308 184.578 Weight 93.8 kg 93.8 kg Intake: IV 260 1108 646 ACETAMINOPHEN IV (For NPO 100 100 ) 1,000 mg In Empty Bag 1 bag @ 400 mls/hr IVPB Q6HR [facility] Rx#:[id number] Albumin Human 5% 250 ml 250 As IVPB .STK-MED ONE Rx#: [id number] Lactated Ringers 1,000 ml 150 600 200 @ 20 mls/hr IV .Q24H [facility] Rx#:[id number] NS Pressure Bag 27 108 36 [place] 80 300 60 Intake, IV Titration 1404.7 139.692 9.578 Amount ACETAMINOPHEN IV (For NPO 100 ) 1,000 mg In Empty Bag 1 bag @ 400 mls/hr IVPB Q6HR [facility] Rx#:[id number] Albumin Human 5% 250 ml 1250 As IVPB .STK-MED ONE Rx#: [id number] Insulin Regular 100 unit 1.908 9.578 In Sodium Chloride 0.9% 100 ml @ Per Protocol IV .Q0M [facility] Rx#:[id number] Norepinephrin 16 mg-0.9% 49.626 Ns Pmx 16 mg In 250 ml @ Titrate IV .Q0M [facility] Rx#: [id number] Propofol 1,000 mg In 24.7 88.158 Empty Bag 1 bag @ Titrate IV .Q0M [facility] Rx#: [id number] ceFAZolin 2,000 mg In 30 Sodium Chloride 0.9% 30 ml @ Per Protocol IVPB ONCE ONE Rx#:[id number] Oral 300 Output: Chest Tube Drainage 615 658 246 Chest Tube Left Anterior 277 198 80 Chest Chest Tube Mediastinal 255 348 120 Chest Tube Right Anterior 83 112 46 Chest Drainage 35 10 Right Calf 35 10 Urine 1115 765 515 Estimated Blood Loss 2500 Other: Voiding Method Indwelling Catheter Indwelling Catheter Indwelling Catheter ABP, PAP, CO, CI - Last Documented Arterial Blood Pressure 113/51 Pulmonary Artery Pressure 24/10 Cardiac Output 7.7 Cardiac Index 3.9 - Exam Constitutional: vital signs stable, Not in acute distress, pleasant, conversant, [place] in place, Huber catheter in place, patient has [address] Lungs: Good breath sounds bilaterally, normal respiratory effort no use of accessory muscles, chest binder in place, surgical dressing in place looks dry and clean and intact over the sternal Cardiovascular: Regular rate and rhythm, no murmurs, no gallops, no rubs, +1 leg edema due to saphenous vein harvesting, Gastrointestinal: Soft, no tenderness to palpation,bowel sounds positive Extremities: No digital cyanosis or clubbing, capillary refill is immediate over bilateral big toes Psych: Alert, oriented to place, person and time, appropriate affect, intact judgment - Labs CBC & Chem 7: 07/12/17 04:15 07/12/17 04:15 Labs: Abnormal Lab Results - Last 24 Hours (Table) 07/06/17 07/11/17 07/11/17 Range/Units 10:36 16:25 16:25 RBC 3.51 L (4.30-5.90) m/uL Hgb 11.3 L D (13.0-17.5) gm/dL Hct 32.4 L (39.0-53.0) % Plt Count 99 L D (150-450) k/uL Lymphocytes # (1.0-4.8) k/uL INR (<1.2) ABG pH (7.35-7.45) ABG pCO2 (35-45) mmHg ABG pO2 (83-108) mmHg ABG HCO3 (21-25) mmol/L ABG Total CO2 (19-24) mmol/L ABG O2 Saturation (94-97) % Chloride 109 H (98-107) mmol/L Glucose 72 L (74-99) mg/dL POC Glucose (mg/dL) (75-99) mg/dL Calcium 8.2 L (8.4-10.2) mg/dL Magnesium 2.6 H (1.6-2.3) mg/dL Alkaline Phosphatase 31 L (38-126) U/L Total Protein 5.2 L (6.3-8.2) g/dL Crossmatch See Detail 07/11/17 07/11/17 07/11/17 Range/Units 16:25 16:47 17:23 RBC (4.30-5.90) m/uL Hgb (13.0-17.5) gm/dL Hct (39.0-53.0) % Plt Count (150-450) k/uL Lymphocytes # (1.0-4.8) k/uL INR 1.3 H (<1.2) ABG pH 7.18 L* 7.25 L (7.35-7.45) ABG pCO2 70 H* 59 H (35-45) mmHg ABG pO2 110 H 68 L (83-108) mmHg ABG HCO3 26 H 26 H (21-25) mmol/L ABG Total CO2 28 H 28 H (19-24) mmol/L ABG O2 Saturation 97.2 H 91.9 L (94-97) % Chloride (98-107) mmol/L Glucose (74-99) mg/dL POC Glucose (mg/dL) (75-99) mg/dL Calcium (8.4-10.2) mg/dL Magnesium (1.6-2.3) mg/dL Alkaline Phosphatase (38-126) U/L Total Protein (6.3-8.2) g/dL Crossmatch 07/11/17 07/11/17 07/11/17 Range/Units 17:23 18:38 19:09 RBC (4.30-5.90) m/uL Hgb (13.0-17.5) gm/dL Hct (39.0-53.0) % Plt Count (150-450) k/uL Lymphocytes # (1.0-4.8) k/uL INR (<1.2) ABG pH (7.35-7.45) ABG pCO2 (35-45) mmHg ABG pO2 (83-108) mmHg ABG HCO3 (21-25) mmol/L ABG Total CO2 (19-24) mmol/L ABG O2 Saturation (94-97) % Chloride (98-107) mmol/L Glucose (74-99) mg/dL POC Glucose (mg/dL) 69 L 105 H 120 H (75-99) mg/dL Calcium (8.4-10.2) mg/dL Magnesium (1.6-2.3) mg/dL Alkaline Phosphatase (38-126) U/L Total Protein (6.3-8.2) g/dL Crossmatch 07/11/17 07/11/17 07/11/17 Range/Units 19:15 19:30 20:19 RBC 3.15 L (4.30-5.90) m/uL Hgb 10.1 L (13.0-17.5) gm/dL Hct 29.4 L (39.0-53.0) % Plt Count 101 L (150-450) k/uL Lymphocytes # 0.7 L (1.0-4.8) k/uL INR (<1.2) ABG pH 7.34 L (7.35-7.45) ABG pCO2 46 H (35-45) mmHg ABG pO2 145 H (83-108) mmHg ABG HCO3 (21-25) mmol/L ABG Total CO2 26 H (19-24) mmol/L ABG O2 Saturation 98.9 H (94-97) % Chloride (98-107) mmol/L Glucose (74-99) mg/dL POC Glucose (mg/dL) 121 H (75-99) mg/dL Calcium (8.4-10.2) mg/dL Magnesium (1.6-2.3) mg/dL Alkaline Phosphatase (38-126) U/L Total Protein (6.3-8.2) g/dL Crossmatch 07/11/17 07/11/17 07/11/17 Range/Units 21:19 21:59 22:00 RBC 3.13 L (4.30-5.90) m/uL Hgb 9.7 L (13.0-17.5) gm/dL Hct 29.1 L (39.0-53.0) % Plt Count 86 L (150-450) k/uL Lymphocytes # 0.6 L (1.0-4.8) k/uL INR (<1.2) ABG pH (7.35-7.45) ABG pCO2 (35-45) mmHg ABG pO2 (83-108) mmHg ABG HCO3 (21-25) mmol/L ABG Total CO2 (19-24) mmol/L ABG O2 Saturation (94-97) % Chloride (98-107) mmol/L Glucose (74-99) mg/dL POC Glucose (mg/dL) 125 H 122 H (75-99) mg/dL Calcium (8.4-10.2) mg/dL Magnesium (1.6-2.3) mg/dL Alkaline Phosphatase (38-126) U/L Total Protein (6.3-8.2) g/dL Crossmatch 07/11/17 07/12/17 07/12/17 Range/Units 23:26 00:07 00:58 RBC (4.30-5.90) m/uL Hgb (13.0-17.5) gm/dL Hct (39.0-53.0) % Plt Count (150-450) k/uL Lymphocytes # (1.0-4.8) k/uL INR (<1.2) ABG pH (7.35-7.45) ABG pCO2 (35-45) mmHg ABG pO2 (83-108) mmHg ABG HCO3 (21-25) mmol/L ABG Total CO2 (19-24) mmol/L ABG O2 Saturation (94-97) % Chloride (98-107) mmol/L Glucose (74-99) mg/dL POC Glucose (mg/dL) 120 H 120 H 125 H (75-99) mg/dL Calcium (8.4-10.2) mg/dL Magnesium (1.6-2.3) mg/dL Alkaline Phosphatase (38-126) U/L Total Protein (6.3-8.2) g/dL Crossmatch 07/12/17 07/12/17 07/12/17 Range/Units 02:19 02:29 03:15 RBC (4.30-5.90) m/uL Hgb (13.0-17.5) gm/dL Hct (39.0-53.0) % Plt Count (150-450) k/uL Lymphocytes # (1.0-4.8) k/uL INR (<1.2) ABG pH (7.35-7.45) ABG pCO2 (35-45) mmHg ABG pO2 65 L (83-108) mmHg ABG HCO3 (21-25) mmol/L ABG Total CO2 26 H (19-24) mmol/L ABG O2 Saturation (94-97) % Chloride (98-107) mmol/L Glucose (74-99) mg/dL POC Glucose (mg/dL) 128 H 130 H (75-99) mg/dL Calcium (8.4-10.2) mg/dL Magnesium (1.6-2.3) mg/dL Alkaline Phosphatase (38-126) U/L Total Protein (6.3-8.2) g/dL Crossmatch 07/12/17 07/12/17 07/12/17 Range/Units 04:15 04:15 04:15 RBC 3.20 L (4.30-5.90) m/uL Hgb 10.2 L (13.0-17.5) gm/dL Hct 29.4 L (39.0-53.0) % Plt Count 105 L (150-450) k/uL Lymphocytes # 0.6 L (1.0-4.8) k/uL INR 1.2 H (<1.2) ABG pH (7.35-7.45) ABG pCO2 (35-45) mmHg ABG pO2 (83-108) mmHg ABG HCO3 (21-25) mmol/L ABG Total CO2 (19-24) mmol/L ABG O2 Saturation (94-97) % Chloride (98-107) mmol/L Glucose 116 H (74-99) mg/dL POC Glucose (mg/dL) (75-99) mg/dL Calcium (8.4-10.2) mg/dL Magnesium (1.6-2.3) mg/dL Alkaline Phosphatase 33 L (38-126) U/L Total Protein 5.3 L (6.3-8.2) g/dL Crossmatch 07/12/17 07/12/17 07/12/17 Range/Units 04:16 04:53 07:20 RBC (4.30-5.90) m/uL Hgb (13.0-17.5) gm/dL Hct (39.0-53.0) % Plt Count (150-450) k/uL Lymphocytes # (1.0-4.8) k/uL INR (<1.2) ABG pH (7.35-7.45) ABG pCO2 (35-45) mmHg ABG pO2 (83-108) mmHg ABG HCO3 (21-25) mmol/L ABG Total CO2 (19-24) mmol/L ABG O2 Saturation (94-97) % Chloride (98-107) mmol/L Glucose (74-99) mg/dL POC Glucose (mg/dL) 126 H 123 H 136 H (75-99) mg/dL Calcium (8.4-10.2) mg/dL Magnesium (1.6-2.3) mg/dL Alkaline Phosphatase (38-126) U/L Total Protein (6.3-8.2) g/dL Crossmatch 07/12/17 07/12/17 07/12/17 Range/Units 08:12 09:00 10:10 RBC (4.30-5.90) m/uL Hgb (13.0-17.5) gm/dL Hct (39.0-53.0) % Plt Count (150-450) k/uL Lymphocytes # (1.0-4.8) k/uL INR (<1.2) ABG pH (7.35-7.45) ABG pCO2 (35-45) mmHg ABG pO2 (83-108) mmHg ABG HCO3 (21-25) mmol/L ABG Total CO2 (19-24) mmol/L ABG O2 Saturation (94-97) % Chloride (98-107) mmol/L Glucose (74-99) mg/dL POC Glucose (mg/dL) 120 H 113 H 105 H (75-99) mg/dL Calcium (8.4-10.2) mg/dL Magnesium (1.6-2.3) mg/dL Alkaline Phosphatase (38-126) U/L Total Protein (6.3-8.2) g/dL Crossmatch Assessment and Plan Assessment: This is a 66-year-old male with history of coronary disease, psoriasis on methotrexate, hypertension, hyperlipidemia, hypothyroidism who presented for elective CABG. 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 At that time echocardiogram showed preserved EF of 55%, trivial tricuspid regurgitation and aortic root 4.5 cm. 3 weeks ago he underwent cardiac catheterization that showed severe and progressive coronary artery disease with stenosis in left main LAD and RCA and diagonal and the in-stent stenosis. He was then referred to cardiothoracic surgery for CABG , he underwent quadruple bypass with both internal mammary arteries and saphenous veins harvesting. He is currently intensive care unit initially was intubated and sedated , had a brief period of respiratory acidosis that was corrected with vent adjustment, later he was successfully extubated on postoperative day one, he has been doing well since then cardiothoracic surgery team and the ICU team is continuing his ICU care and management postop. Medicine service is assisting with medical management. Plan: #Coronary artery disease status post quadruple bypass postoperative day #1 Management per cardiothoracic surgery team Patient was extubated successfully #Hypothyroidism Currently on Synthroid TSH suppressed Free T4 at goal No immediate need for changes in his Synthroid dose continue regular follow-up outpatient #Postoperative anemia Continue to monitor hemoglobin Transfuse as needed to keep hemoglobin above 7 #Hypertension #Psoriasis Continue to hold the methotrexate for at least 2-3 weeks postop, as methotrexate can affect wound healing, If meanwhile psoriasis rebounds with severe symptoms that patient could not tolerate then consider restarting methotrexate. #DVT prophylaxis Patient currently on past
[2017-07-12] MEDS: FOLIC ACID 1 MG TAB PO SCH (12:01)
[2017-07-12 12:15] LABS: Glucose,Whole Blood 119 mg/dL (75-99)
[2017-07-12] MEDS ORDERED: METOPROLOL TARTRATE 12.5 MG TAB PO STA (12:15)
--- NOTE | 2017-07-12 13:07 | P.PN ---
Subjective Progress Note Date: 07/12/17 Principal diagnosis: Status post CABG, postoperative day #1 this is a 66-year-old white male with triple-vessel coronary artery disease, this was documented on recent cardiac catheterization, patient has preserved LV function. Patient underwent elective myocardial revascularization today, postoperatively he was on mechanical ventilation, and this consult was initiated. Initial ventilator settings with IMV of 12, volume of 550, FiO2 of 100%, and the 5. ABG reflected significant respiratory acidosis, has the patient was placed on assist-control mode of mechanical ventilation initially and a of 16 then increased rate of 20. Repeat ABG is pending. Chest x-ray postoperatively showed adequate placement of endotracheal Q, all lines and chest usual noted to be in place. All labs were reviewed including 2 different sets of ABGs. Patient was reevaluated today on 07/12/2017, he was extubated last night uneventfully, presently on nasal cannula, in no distress, tolerated the extubation well. Chest x-ray today showed tiny bilateral pneumothoraces, and scattered areas of atelectasis. Patient again is asymptomatic, his labs are unremarkable with hemoglobin of 10.2, basic metabolic profile is relatively unremarkable. Objective - Vital Signs Vital signs: Vital Signs Temp 99.7 F H 07/11/17 19:00 Pulse 88 07/12/17 11:00 Resp 28 H 07/12/17 11:00 BP 99/60 07/12/17 08:30 Pulse Ox 92 L 07/12/17 11:00 Intake & Output 07/11/17 07/12/17 07/12/17 18:59 06:59 18:59 Intake Total 1664.7 1247.692 981.578 Output Total 4265 1423 893 Balance -2600.3 -175.308 88.578 Weight 93.8 kg 93.8 kg Intake: IV 260 1108 672 ACETAMINOPHEN IV (For NPO 100 100 ) 1,000 mg In Empty Bag 1 bag @ 400 mls/hr IVPB Q6HR [facility] Rx#:[id number] Albumin Human 5% 250 ml 250 As IVPB .STK-MED ONE Rx#: [id number] Lactated Ringers 1,000 ml 150 600 220 @ 20 mls/hr IV .Q24H [facility] Rx#:[id number] NS Pressure Bag 27 108 42 [place] 80 300 60 Intake, IV Titration 1404.7 139.692 9.578 Amount ACETAMINOPHEN IV (For NPO 100 ) 1,000 mg In Empty Bag 1 bag @ 400 mls/hr IVPB Q6HR [facility] Rx#:[id number] Albumin Human 5% 250 ml 1250 As IVPB .STK-MED ONE Rx#: [id number] Insulin Regular 100 unit 1.908 9.578 In Sodium Chloride 0.9% 100 ml @ Per Protocol IV .Q0M [facility] Rx#:[id number] Norepinephrin 16 mg-0.9% 49.626 Ns Pmx 16 mg In 250 ml @ Titrate IV .Q0M [facility] Rx#: [id number] Propofol 1,000 mg In 24.7 88.158 Empty Bag 1 bag @ Titrate IV .Q0M [facility] Rx#: [id number] ceFAZolin 2,000 mg In 30 Sodium Chloride 0.9% 30 ml @ Per Protocol IVPB ONCE ONE Rx#:[id number] Oral 300 Output: Chest Tube Drainage 615 658 318 Chest Tube Left Anterior 277 198 120 Chest Chest Tube Mediastinal 255 348 150 Chest Tube Right Anterior 83 112 48 Chest Drainage 35 10 Right Calf 35 10 Urine 1115 765 565 Estimated Blood Loss 2500 Other: Voiding Method Indwelling Catheter Indwelling Catheter Indwelling Catheter ABP, PAP, CO, CI - Last Documented Arterial Blood Pressure 101/50 Pulmonary Artery Pressure 21/9 Cardiac Output 7.7 Cardiac Index 3.9 - Exam - Constitutional General appearance: Physical exam revealed a 66-year-old white male, very pleasant, in no distress. - EENT ENT: Slightly dry mucous membranes, throat is clear, PERRLA, EOMI. - Neck No neck masses, no JVD, no stridor. No cervical lymphadenopathy - Respiratory Clear bilaterally, no crackles or rhonchi or wheezes, good breath sound bilaterally. Symmetrical chest expansion. Chest tubes and mediastinal tube were noted. - Cardiovascular Details: Regular rhythm and rate, S1 and S2 present, negative for S3, gallop or murmur. Pericardial rub heard. Sternum is stable. - Gastrointestinal Gastrointestinal Comment(s): Abdomen: Soft, nontender, no megaly, hypoactive bowel sounds. - Genitourinary Genitourinary Comment(s): Fully catheter in place - Integumentary Integumentary Comment(s): Skin is relatively intact. - Neurologic Neurologic: Alert oriented 3, no gross focal neurologic deficit - Musculoskeletal Musculoskeletal: Adequate strength bilaterally. - Psychiatric Psychiatric: Normal mood, affect, and mental status examination. - Labs CBC & Chem 7: 07/12/17 04:15 07/12/17 04:15 Labs: Abnormal Lab Results - Last 24 Hours (Table) 07/06/17 07/11/17 07/11/17 Range/Units 10:36 16:25 16:25 RBC 3.51 L (4.30-5.90) m/uL Hgb 11.3 L D (13.0-17.5) gm/dL Hct 32.4 L (39.0-53.0) % Plt Count 99 L D (150-450) k/uL Lymphocytes # (1.0-4.8) k/uL INR (<1.2) ABG pH (7.35-7.45) ABG pCO2 (35-45) mmHg ABG pO2 (83-108) mmHg ABG HCO3 (21-25) mmol/L ABG Total CO2 (19-24) mmol/L ABG O2 Saturation (94-97) % Chloride 109 H (98-107) mmol/L Glucose 72 L (74-99) mg/dL POC Glucose (mg/dL) (75-99) mg/dL Calcium 8.2 L (8.4-10.2) mg/dL Magnesium 2.6 H (1.6-2.3) mg/dL Alkaline Phosphatase 31 L (38-126) U/L Total Protein 5.2 L (6.3-8.2) g/dL Crossmatch See Detail 07/11/17 07/11/17 07/11/17 Range/Units 16:25 16:47 17:23 RBC (4.30-5.90) m/uL Hgb (13.0-17.5) gm/dL Hct (39.0-53.0) % Plt Count (150-450) k/uL Lymphocytes # (1.0-4.8) k/uL INR 1.3 H (<1.2) ABG pH 7.18 L* 7.25 L (7.35-7.45) ABG pCO2 70 H* 59 H (35-45) mmHg ABG pO2 110 H 68 L (83-108) mmHg ABG HCO3 26 H 26 H (21-25) mmol/L ABG Total CO2 28 H 28 H (19-24) mmol/L ABG O2 Saturation 97.2 H 91.9 L (94-97) % Chloride (98-107) mmol/L Glucose (74-99) mg/dL POC Glucose (mg/dL) (75-99) mg/dL Calcium (8.4-10.2) mg/dL Magnesium (1.6-2.3) mg/dL Alkaline Phosphatase (38-126) U/L Total Protein (6.3-8.2) g/dL Crossmatch 07/11/17 07/11/17 07/11/17 Range/Units 17:23 18:38 19:09 RBC (4.30-5.90) m/uL Hgb (13.0-17.5) gm/dL Hct (39.0-53.0) % Plt Count (150-450) k/uL Lymphocytes # (1.0-4.8) k/uL INR (<1.2) ABG pH (7.35-7.45) ABG pCO2 (35-45) mmHg ABG pO2 (83-108) mmHg ABG HCO3 (21-25) mmol/L ABG Total CO2 (19-24) mmol/L ABG O2 Saturation (94-97) % Chloride (98-107) mmol/L Glucose (74-99) mg/dL POC Glucose (mg/dL) 69 L 105 H 120 H (75-99) mg/dL Calcium (8.4-10.2) mg/dL Magnesium (1.6-2.3) mg/dL Alkaline Phosphatase (38-126) U/L Total Protein (6.3-8.2) g/dL Crossmatch 07/11/17 07/11/17 07/11/17 Range/Units 19:15 19:30 20:19 RBC 3.15 L (4.30-5.90) m/uL Hgb 10.1 L (13.0-17.5) gm/dL Hct 29.4 L (39.0-53.0) % Plt Count 101 L (150-450) k/uL Lymphocytes # 0.7 L (1.0-4.8) k/uL INR (<1.2) ABG pH 7.34 L (7.35-7.45) ABG pCO2 46 H (35-45) mmHg ABG pO2 145 H (83-108) mmHg ABG HCO3 (21-25) mmol/L ABG Total CO2 26 H (19-24) mmol/L ABG O2 Saturation 98.9 H (94-97) % Chloride (98-107) mmol/L Glucose (74-99) mg/dL POC Glucose (mg/dL) 121 H (75-99) mg/dL Calcium (8.4-10.2) mg/dL Magnesium (1.6-2.3) mg/dL Alkaline Phosphatase (38-126) U/L Total Protein (6.3-8.2) g/dL Crossmatch 07/11/17 07/11/17 07/11/17 Range/Units 21:19 21:59 22:00 RBC 3.13 L (4.30-5.90) m/uL Hgb 9.7 L (13.0-17.5) gm/dL Hct 29.1 L (39.0-53.0) % Plt Count 86 L (150-450) k/uL Lymphocytes # 0.6 L (1.0-4.8) k/uL INR (<1.2) ABG pH (7.35-7.45) ABG pCO2 (35-45) mmHg ABG pO2 (83-108) mmHg ABG HCO3 (21-25) mmol/L ABG Total CO2 (19-24) mmol/L ABG O2 Saturation (94-97) % Chloride (98-107) mmol/L Glucose (74-99) mg/dL POC Glucose (mg/dL) 125 H 122 H (75-99) mg/dL Calcium (8.4-10.2) mg/dL Magnesium (1.6-2.3) mg/dL Alkaline Phosphatase (38-126) U/L Total Protein (6.3-8.2) g/dL Crossmatch 07/11/17 07/12/17 07/12/17 Range/Units 23:26 00:07 00:58 RBC (4.30-5.90) m/uL Hgb (13.0-17.5) gm/dL Hct (39.0-53.0) % Plt Count (150-450) k/uL Lymphocytes # (1.0-4.8) k/uL INR (<1.2) ABG pH (7.35-7.45) ABG pCO2 (35-45) mmHg ABG pO2 (83-108) mmHg ABG HCO3 (21-25) mmol/L ABG Total CO2 (19-24) mmol/L ABG O2 Saturation (94-97) % Chloride (98-107) mmol/L Glucose (74-99) mg/dL POC Glucose (mg/dL) 120 H 120 H 125 H (75-99) mg/dL Calcium (8.4-10.2) mg/dL Magnesium (1.6-2.3) mg/dL Alkaline Phosphatase (38-126) U/L Total Protein (6.3-8.2) g/dL Crossmatch 07/12/17 07/12/17 07/12/17 Range/Units 02:19 02:29 03:15 RBC (4.30-5.90) m/uL Hgb (13.0-17.5) gm/dL Hct (39.0-53.0) % Plt Count (150-450) k/uL Lymphocytes # (1.0-4.8) k/uL INR (<1.2) ABG pH (7.35-7.45) ABG pCO2 (35-45) mmHg ABG pO2 65 L (83-108) mmHg ABG HCO3 (21-25) mmol/L ABG Total CO2 26 H (19-24) mmol/L ABG O2 Saturation (94-97) % Chloride (98-107) mmol/L Glucose (74-99) mg/dL POC Glucose (mg/dL) 128 H 130 H (75-99) mg/dL Calcium (8.4-10.2) mg/dL Magnesium (1.6-2.3) mg/dL Alkaline Phosphatase (38-126) U/L Total Protein (6.3-8.2) g/dL Crossmatch 07/12/17 07/12/17 07/12/17 Range/Units 04:15 04:15 04:15 RBC 3.20 L (4.30-5.90) m/uL Hgb 10.2 L (13.0-17.5) gm/dL Hct 29.4 L (39.0-53.0) % Plt Count 105 L (150-450) k/uL Lymphocytes # 0.6 L (1.0-4.8) k/uL INR 1.2 H (<1.2) ABG pH (7.35-7.45) ABG pCO2 (35-45) mmHg ABG pO2 (83-108) mmHg ABG HCO3 (21-25) mmol/L ABG Total CO2 (19-24) mmol/L ABG O2 Saturation (94-97) % Chloride (98-107) mmol/L Glucose 116 H (74-99) mg/dL POC Glucose (mg/dL) (75-99) mg/dL Calcium (8.4-10.2) mg/dL Magnesium (1.6-2.3) mg/dL Alkaline Phosphatase 33 L (38-126) U/L Total Protein 5.3 L (6.3-8.2) g/dL Crossmatch 07/12/17 07/12/17 07/12/17 Range/Units 04:16 04:53 07:20 RBC (4.30-5.90) m/uL Hgb (13.0-17.5) gm/dL Hct (39.0-53.0) % Plt Count (150-450) k/uL Lymphocytes # (1.0-4.8) k/uL INR (<1.2) ABG pH (7.35-7.45) ABG pCO2 (35-45) mmHg ABG pO2 (83-108) mmHg ABG HCO3 (21-25) mmol/L ABG Total CO2 (19-24) mmol/L ABG O2 Saturation (94-97) % Chloride (98-107) mmol/L Glucose (74-99) mg/dL POC Glucose (mg/dL) 126 H 123 H 136 H (75-99) mg/dL Calcium (8.4-10.2) mg/dL Magnesium (1.6-2.3) mg/dL Alkaline Phosphatase (38-126) U/L Total Protein (6.3-8.2) g/dL Crossmatch 07/12/17 07/12/17 07/12/17 Range/Units 08:12 09:00 10:10 RBC (4.30-5.90) m/uL Hgb (13.0-17.5) gm/dL Hct (39.0-53.0) % Plt Count (150-450) k/uL Lymphocytes # (1.0-4.8) k/uL INR (<1.2) ABG pH (7.35-7.45) ABG pCO2 (35-45) mmHg ABG pO2 (83-108) mmHg ABG HCO3 (21-25) mmol/L ABG Total CO2 (19-24) mmol/L ABG O2 Saturation (94-97) % Chloride (98-107) mmol/L Glucose (74-99) mg/dL POC Glucose (mg/dL) 120 H 113 H 105 H (75-99) mg/dL Calcium (8.4-10.2) mg/dL Magnesium (1.6-2.3) mg/dL Alkaline Phosphatase (38-126) U/L Total Protein (6.3-8.2) g/dL Crossmatch 07/12/17 Range/Units 12:10 RBC (4.30-5.90) m/uL Hgb (13.0-17.5) gm/dL Hct (39.0-53.0) % Plt Count (150-450) k/uL Lymphocytes # (1.0-4.8) k/uL INR (<1.2) ABG pH (7.35-7.45) ABG pCO2 (35-45) mmHg ABG pO2 (83-108) mmHg ABG HCO3 (21-25) mmol/L ABG Total CO2 (19-24) mmol/L ABG O2 Saturation (94-97) % Chloride (98-107) mmol/L Glucose (74-99) mg/dL POC Glucose (mg/dL) 119 H (75-99) mg/dL Calcium (8.4-10.2) mg/dL Magnesium (1.6-2.3) mg/dL Alkaline Phosphatase (38-126) U/L Total Protein (6.3-8.2) g/dL Crossmatch Assessment and Plan Assessment: Impression: 1 Status post CABG for triple-vessel coronary artery disease postoperative day #1, tolerated extubation well, patient is presently on nasal cannula, relatively asymptomatic. 2 history of multiple comorbidities including hypertension, psoriasis, hypercholesterolemia, and hypothyroidism. Recommendation: Continue present postoperative treatment plan including bronchodilators, incentive spirometry, early ambulation, we will continue to follow. Time with Patient: Less than 30
[2017-07-12 13:47] LABS: Glucose,Whole Blood 111 mg/dL (75-99)
--- NOTE | 2017-07-12 14:33 | CDI ---
Last Revision, April 2017 Documentation Clarification Form Date: 07/12/2017 From: Nely Barajas Admit Date: 07/11/2017 5:37:00 AM Patient Name: Kayode Delcid Visit Number: [id number] Discharge Date: ATTENTION: The Clinical Documentation Specialists (CDI) and [facility] Coding Staff appreciate your assistance in clarifying documentation. Please respond to the clarification below the line at the bottom and electronically sign. The CDI & [facility] Coding staff will review the response and follow-up if needed. Please note: Queries are made part of the Legal Health Record. If you have any questions, please contact the author of this message via ITS. Dr. Thuy Gay: Per the 07/11 Medical Management Consult: "With postoperative acute hypercarbic respiratory failure Ventilatory settings changed by critical care medicine and acidosis improving vent bundle." History/Risk Factors: Former smoker, emphysema, CAD, Hypertension. Clinical Indicators: Vital signs: RR 16, BP 80/43, PO 97 on vent. ABG/CBG: pH 7.34 pCO2 46 pHCO3 (25) Treatment: Successfully extubated 06/14 @ 2:45 per RT. Currently PO 92 on 8L high flow O2. Chest tube remains. Heparin sq, IV Toradol, IV Lasix, IV Protonix , ASA, Albuterol INH. In order to accurately reflect this patients severity of illness, please clarify if the post-operative diagnosis is: An expected post-procedural or post-surgical condition Integral to the procedure Inherent to the procedure An unexpected post-procedural or post-surgical condition related to surgical care Other, please specify Unable to determine Please continue to document in your progress notes and discharge summary in order to capture severity of illness and risk of mortality. Include clinical findings that support your diagnosis. MTDD
[2017-07-12 15:14] LABS: Glucose,Whole Blood 109 mg/dL (75-99)
[2017-07-12] MEDS ORDERED: HYDROcodone/APAP 5-325MG 1 EACH TAB PO PRN (15:52)
[2017-07-12] MEDS ORDERED: IPRATROPIUM-ALBUTEROL 3 ML NEB INHALATION PRN (15:53)
[2017-07-12] MEDS ORDERED: MAGNESIUM HYDROXIDE 2,400 MG/10 ML CUP PO PRN (15:53)
[2017-07-12] MEDS ORDERED: BISACODYL 10 MG SUPP RECTAL PRN (15:53)
[2017-07-12 16:59] LABS: Glucose,Whole Blood 89 mg/dL (75-99)
[2017-07-12] MEDS: INSULIN ASPART 100 UNIT/ML 1 ML 10 ML VIAL SQ SCH ×2 (17:28→21:07)
[2017-07-12 21:00] LABS: Glucose,Whole Blood 108 mg/dL (75-99)
[2017-07-12] MEDS ORDERED: METOPROLOL TARTRATE 25 MG TAB PO SCH (21:00)
[2017-07-12] MEDS: LACTATED RINGERS 1,000 ML IV SCH (21:06)
[2017-07-12] MEDS: SENNOSIDES-DOCUSATE SODIUM 1 EACH TAB PO SCH (21:23)
[2017-07-12] MEDS: HYDROcodone/APAP 5-325MG 1 EACH TAB PO PRN (22:03)
[2017-07-13] MEDS: KETOROLAC 30 MG/ML 1 ML VIAL IVP SCH ×4 (00:36→18:44)
[2017-07-13] MEDS: HEPARIN SODIUM,PORCINE 5,000 UNIT/ML 1 ML VIAL SQ SCH ×3 (00:36→16:30)
[2017-07-13 02:01] LABS: Glucose,Whole Blood 102 mg/dL (75-99)
[2017-07-13] MEDS: METOPROLOL TARTRATE 12.5 MG TAB PO SCH ×3 (02:27→20:42)
[2017-07-13] MEDS: ALBUMIN HUMAN 5% 250 ML in EMPTY BAG 1 BAG IVPB PRN ×3 (02:29→13:12)
[2017-07-13] MEDS: HYDROcodone/APAP 5-325MG 1 EACH TAB PO PRN ×4 (02:29→20:46)
[2017-07-13 04:48] LABS: Basophils % (A) 1 %; Eosinophils # (A) 0.1 k/uL (0-0.7); Eosinophils % (A) 3 %; HCT 25.9 % (39.0-53.0); Lymphocytes # (A) 0.9 k/uL (1.0-4.8); Lymphocytes % (A) 19 %; MCH 32.2 pg (25.0-35.0); MCHC 34.9 g/dL (31.0-37.0); MCV 92.5 fL (80.0-100.0); Mean Platelet Volume 7.7; Monocytes # (A) 0.2 k/uL (0-1.0); Monocytes % (A) 4 %; Neutrophils # (A) 3.5 k/uL (1.3-7.7); Neutrophils % (A) 72 %; RDW 13.4 % (11.5-15.5); WBC 4.9 k/uL (3.8-10.6)
[2017-07-13 04:53] LABS: Ionized Calcium 5.1 mg/dL (4.5-5.3)
[2017-07-13 05:05] LABS: ALT 26 U/L (21-72); AST 31 U/L (17-59); Albumin 3.6 g/dL (3.5-5.0); Alkaline Phosphatase 41 U/L (38-126); Anion Gap 8 mmol/L; Blood Urea Nitrogen 19 mg/dL (9-20); Calcium 8.8 mg/dL (8.4-10.2); Carbon Dioxide 27 mmol/L (22-30); Chloride 104 mmol/L (98-107); Glucose 106 mg/dL (74-99); Magnesium 2.2 mg/dL (1.6-2.3); Phosphorus 3.1 mg/dL (2.5-4.5); Potassium 4.3 mmol/L (3.5-5.1); Sodium 139 mmol/L (137-145); Total Protein 5.3 g/dL (6.3-8.2)
[2017-07-13 06:14] LABS: Platelet Count 77 k/uL (150-450)
[2017-07-13] MEDS: LEVOTHYROXINE 75 MCG TAB PO SCH (06:27)
[2017-07-13 07:42] LABS: Glucose,Whole Blood 108 mg/dL (75-99)
--- NOTE | 2017-07-13 08:26 | XR ---
EXAMINATION TYPE: XR chest 1V portable DATE OF EXAM: 07/13/2017 COMPARISON: 07/12/2017 INDICATION: Postoperative cardiac surgery TECHNIQUE: Single frontal view of the chest is obtained. FINDINGS: The heart size is normal. The pulmonary vasculature is normal. Chest tube is present at the right base. Some right basilar atelectasis is present. There is a right pneumothorax which is similar to prior exam. Left-sided chest tube is present. No left pneumothorax i s evident. Some mild left lower lobe infiltrate may be present in retrocardiac position silhouetting the left di aphragm. Sheath is present on the right with the tip in the superior vena cava region. The [place]Mari catheter is been removed. Sternotomy wires are in the midline. Mediastinal tube is present. EKG leads overlie the chest. IMPRESSION: 1. Small stable right apical pneumothorax. 2. Bilateral chest tubes. 3. Bibasilar infiltrates larger on the left, stable.
[2017-07-13] MEDS: ASPIRIN 325 MG TAB PO SCH (08:58)
[2017-07-13] MEDS: INSULIN ASPART 100 UNIT/ML 1 ML 10 ML VIAL SQ SCH ×4 (08:58→20:42)
[2017-07-13] MEDS: PANTOPRAZOLE 40 MG TABLET PO SCH (08:59)
[2017-07-13] MEDS: ATORVASTATIN 40 MG TAB PO SCH (08:59)
[2017-07-13] MEDS: MUPIROCIN 2% OINT 22 GM TUBE NASAL SCH ×2 (08:59→20:42)
[2017-07-13] MEDS: CLOPIDOGREL 75 MG TAB PO SCH (08:59)
[2017-07-13] MEDS: FOLIC ACID 1 MG TAB PO SCH (09:00)
--- NOTE | 2017-07-13 09:34 | P.PN ---
Subjective Progress Note Date: 07/13/17 Principal diagnosis: patient is seen and examined in follow up for medical management, hypothyroid, blood sugar , bicytopenia Patient was seen and examined today, Patient was sitting in his chair relaxed, He reported that pain is well controlled, denies any nausea vomting, fever or chills. tolerating diet, passed bowel movement, ,continues to have shields cath in place. Objective - Vital Signs Vital signs: Vital Signs Temp 98 F 07/13/17 04:00 Pulse 65 07/13/17 06:00 Resp 18 07/13/17 06:00 BP 103/62 07/13/17 06:00 Pulse Ox 96 07/13/17 06:00 Intake & Output 07/12/17 07/13/17 07/13/17 18:59 06:59 18:59 Intake Total 2043.578 1192 Output Total 1553 935 Balance 490.578 257 Weight 93.8 kg Intake: IV 1734 1192 ACETAMINOPHEN IV (For NPO 900 ) 1,000 mg In Empty Bag 1 bag @ 400 mls/hr IVPB Q6HR [facility] Rx#:[id number] Albumin Human 5% 250 ml 250 500 As IVPB .STK-MED ONE Rx#: [id number] Lactated Ringers 1,000 ml 440 650 @ 20 mls/hr IV .Q24H [facility] Rx#:[id number] NS Pressure Bag 84 42 [place] 60 Intake, IV Titration 9.578 Amount Insulin Regular 100 unit 9.578 In Sodium Chloride 0.9% 100 ml @ Per Protocol IV .Q0M [facility] Rx#:[id number] Oral 300 Output: Chest Tube Drainage 668 390 Chest Tube Left Anterior 160 140 Chest Chest Tube Mediastinal 400 160 Chest Tube Right Anterior 108 90 Chest Drainage 10 65 Right Calf 10 65 Urine 875 480 Other: Voiding Method Indwelling Catheter Indwelling Catheter ABP, PAP, CO, CI - Last Documented Arterial Blood Pressure 159/159 Pulmonary Artery Pressure 21/9 Cardiac Output 7.7 Cardiac Index 3.9 - Exam Constitutional: vital signs stable, Not in acute distress, pleasant, conversant, Shields catheter in place, patient has [address] Lungs: Good breath sounds bilaterally, normal respiratory effort no use of accessory muscles, chest binder in place, surgical dressing in place looks dry and clean and intact over the sternum Cardiovascular: Regular rate and rhythm, no murmurs, no gallops, no rubs, no peripheral edema Gastrointestinal: Soft, no tenderness to palpation,bowel sounds positive Extremities: No digital cyanosis or clubbing, capillary refill is immediate over bilateral big toes , surgical dressing and drain over right leg due to saphenous vein harvesting, Psych: Alert, oriented to place, person and time, appropriate affect, intact judgment - Labs CBC & Chem 7: 07/13/17 04:30 07/13/17 04:30 Labs: Abnormal Lab Results - Last 24 Hours (Table) 07/12/17 07/12/17 07/12/17 Range/Units 10:10 12:10 13:43 RBC (4.30-5.90) m/uL Hgb (13.0-17.5) gm/dL Hct (39.0-53.0) % Plt Count (150-450) k/uL Lymphocytes # (1.0-4.8) k/uL Glucose (74-99) mg/dL POC Glucose (mg/dL) 105 H 119 H 111 H (75-99) mg/dL Total Protein (6.3-8.2) g/dL 07/12/17 07/12/17 07/13/17 Range/Units 15:12 20:58 01:59 RBC (4.30-5.90) m/uL Hgb (13.0-17.5) gm/dL Hct (39.0-53.0) % Plt Count (150-450) k/uL Lymphocytes # (1.0-4.8) k/uL Glucose (74-99) mg/dL POC Glucose (mg/dL) 109 H 108 H 102 H (75-99) mg/dL Total Protein (6.3-8.2) g/dL 07/13/17 07/13/17 07/13/17 Range/Units 04:30 04:30 07:40 RBC 2.80 L (4.30-5.90) m/uL Hgb 9.0 L (13.0-17.5) gm/dL Hct 25.9 L (39.0-53.0) % Plt Count 77 L (150-450) k/uL Lymphocytes # 0.9 L (1.0-4.8) k/uL Glucose 106 H (74-99) mg/dL POC Glucose (mg/dL) 108 H (75-99) mg/dL Total Protein 5.3 L (6.3-8.2) g/dL Assessment and Plan Assessment: This is a 66-year-old male with history of coronary disease, psoriasis on methotrexate, hypertension, hyperlipidemia, hypothyroidism who presented for elective CABG. 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 At that time echocardiogram showed preserved EF of 55%, trivial tricuspid regurgitation and aortic root 4.5 cm. 3 weeks ago he underwent cardiac catheterization that showed severe and progressive coronary artery disease with stenosis in left main LAD and RCA and diagonal and the in-stent stenosis. He was then referred to cardiothoracic surgery for CABG , he underwent quadruple bypass with both internal mammary arteries and saphenous veins harvesting. He is currently intensive care unit initially was intubated and sedated , had a brief period of respiratory acidosis that was corrected with vent adjustment, later he was successfully extubated on postoperative day one, he has been doing well since then. Insulin drip discontinued and he transitioned to SC insulin per sliding scale for tight glycemic control . cardiothoracic surgery team and the ICU team is continuing his ICU care and management postop. Medicine service is assisting with medical management. Patient has low platelets and low Hgb chronically, this is thought to be due to taking methotrexate (known side effect) he denies any bleeding, other than expected bleeding during surgery , blood draws, and the three chest tubes during his post op care, which is resulting in slight drop of his hemoglobin Plan: #Coronary artery disease status post quadruple bypass postoperative day #2 # CAD Management per cardiothoracic surgery team Patient was extubated successfully on POD #1 pain well controlled he seems to be stable at this point continue ASA, plavix, statin low dose BB #Hypothyroidism, stable Currently on Synthroid TSH suppressed Free T4 at goal No immediate need for changes in his Synthroid dose continue regular follow-up outpatient #Chronic bicytopenia , due to Methotrexate side effect #Postoperative anemia Continue to monitor hemoglobin Transfuse as needed to keep hemoglobin above 7 currently does not seem to be symptomatic from anemia, however patient has very limited activity to evaluate yet. consider discussing with PCP , other options to manage Psoriasis , due to side effects of Methotrexate on blood count check Iron studies Consider PO iron #Hypertension currently continues to have borderline low normal blood pressure continue to monitor on low dose BB #Psoriasis Continue to hold the methotrexate for at least 2-3 weeks postop, as methotrexate can affect wound healing, If meanwhile psoriasis rebounds with severe symptoms that patient could not tolerate then consider restarting methotrexate. #DVT prophylaxis Patient currently on heparin sc TID consider removing shields catheter, monitor for urinary retention encouraged to use IS.
[2017-07-13] MEDS: IPRATROPIUM-ALBUTEROL 3 ML NEB INHALATION SCH ×4 (09:51→19:55)
[2017-07-13 10:23] LABS: ABG Base Excess -4.3 mmol/L; ABG HCO3 22 mmol/L (21-25); ABG Oxygen Saturation 99.6 % (94-97); ABG PCO2 42 mmHg (35-45); ABG PH 7.32 (7.35-7.45); ABG PO2 202 mmHg (83-108); ABG Potassium Whole Blood 4.8 mmol/L (3.4-4.5); ABG Sodium Whole Blood 139 mmol/L (135-146); ABG TCO2 23 mmol/L (19-24)
[2017-07-13 10:23] LABS: ABG Base Excess -1.6 mmol/L; ABG HCO3 25 mmol/L (21-25); ABG Oxygen Saturation 98.4 % (94-97); ABG PCO2 46 mmHg (35-45); ABG PH 7.33 (7.35-7.45); ABG PO2 116 mmHg (83-108); ABG Potassium Whole Blood 4.2 mmol/L (3.4-4.5); ABG Sodium Whole Blood 141 mmol/L (135-146); ABG TCO2 26 mmol/L (19-24)
[2017-07-13 10:23] LABS: ABG Base Excess -2.7 mmol/L; ABG HCO3 23 mmol/L (21-25); ABG Oxygen Saturation 99.8 % (94-97); ABG PCO2 45 mmHg (35-45); ABG PH 7.32 (7.35-7.45); ABG PO2 259 mmHg (83-108); ABG Potassium Whole Blood 5.2 mmol/L (3.4-4.5); ABG Sodium Whole Blood 137 mmol/L (135-146); ABG TCO2 25 mmol/L (19-24)
[2017-07-13 10:24] LABS: ABG Base Excess -2.1 mmol/L; ABG HCO3 24 mmol/L (21-25); ABG Oxygen Saturation 99.8 % (94-97); ABG PCO2 46 mmHg (35-45); ABG PH 7.33 (7.35-7.45); ABG PO2 269 mmHg (83-108); ABG Potassium Whole Blood 4.5 mmol/L (3.4-4.5); ABG Sodium Whole Blood 138 mmol/L (135-146); ABG TCO2 25 mmol/L (19-24)
[2017-07-13 10:29] LABS: ABG Base Excess -2.7 mmol/L; ABG HCO3 23 mmol/L (21-25); ABG Oxygen Saturation 99.4 % (94-97); ABG PCO2 43 mmHg (35-45); ABG PH 7.34 (7.35-7.45); ABG PO2 181 mmHg (83-108); ABG Potassium Whole Blood 4.4 mmol/L (3.4-4.5); ABG Sodium Whole Blood 137 mmol/L (135-146); ABG TCO2 24 mmol/L (19-24)
[2017-07-13 10:29] LABS: ABG Base Excess -3.1 mmol/L; ABG HCO3 23 mmol/L (21-25); ABG PCO2 42 mmHg (35-45); ABG PH 7.34 (7.35-7.45); ABG PO2 417 mmHg (83-108); ABG Potassium Whole Blood 4.8 mmol/L (3.4-4.5); ABG Sodium Whole Blood 134 mmol/L (135-146); ABG TCO2 24 mmol/L (19-24)
[2017-07-13 10:30] LABS: ABG Base Excess -0.6 mmol/L; ABG HCO3 25 mmol/L (21-25); ABG Oxygen Saturation 99.9 % (94-97); ABG PCO2 41 mmHg (35-45); ABG PH 7.38 (7.35-7.45); ABG PO2 311 mmHg (83-108); ABG Sodium Whole Blood 139 mmol/L (135-146); ABG TCO2 26 mmol/L (19-24)
[2017-07-13 10:30] LABS: ABG Base Excess -1.8 mmol/L; ABG HCO3 25 mmol/L (21-25); ABG PCO2 49 mmHg (35-45); ABG PH 7.32 (7.35-7.45); ABG PO2 106 mmHg (83-108); ABG Potassium Whole Blood 3.9 mmol/L (3.4-4.5); ABG Sodium Whole Blood 138 mmol/L (135-146); ABG TCO2 26 mmol/L (19-24)
[2017-07-13 12:14] LABS: Glucose,Whole Blood 96 mg/dL (75-99)
--- NOTE | 2017-07-13 12:46 | P.PN ---
Subjective Progress Note Date: 07/13/17 Principal diagnosis: Status post CABG, postoperative day #2 this is a 66-year-old white male with triple-vessel coronary artery disease, this was documented on recent cardiac catheterization, patient has preserved LV function. Patient underwent elective myocardial revascularization today, postoperatively he was on mechanical ventilation, and this consult was initiated. Initial ventilator settings with IMV of 12, volume of 550, FiO2 of 100%, and the 5. ABG reflected significant respiratory acidosis, has the patient was placed on assist-control mode of mechanical ventilation initially and a of 16 then increased rate of 20. Repeat ABG is pending. Chest x-ray postoperatively showed adequate placement of endotracheal Q, all lines and chest usual noted to be in place. All labs were reviewed including 2 different sets of ABGs. Patient was reevaluated today on 07/12/2017, he was extubated last night uneventfully, presently on nasal cannula, in no distress, tolerated the extubation well. Chest x-ray today showed tiny bilateral pneumothoraces, and scattered areas of atelectasis. Patient again is asymptomatic, his labs are unremarkable with hemoglobin of 10.2, basic metabolic profile is relatively unremarkable. Patient was reevaluated today on 07/13/2017, sitting in a chair, in no distress. Basically asymptomatic. Denies any shortness of breath, no cough, no wheezing , no chest pain. Chest x-ray was reviewed and it showed mostly postoperative changes. Small right apical pneumothorax was noted, both chest tubes in both sides remain in place, minimal atelectasis at the bases was also noted. Laboratory studies including CBC and basic metabolic profile and renal profile are normal. Objective - Vital Signs Vital signs: Vital Signs Temp 98.4 F 07/13/17 12:00 Pulse 77 07/13/17 12:00 Resp 27 H 07/13/17 12:00 BP 101/57 07/13/17 12:00 Pulse Ox 94 L 07/13/17 12:00 Intake & Output 07/12/17 07/13/17 07/13/17 18:59 06:59 18:59 Intake Total 2043.578 1192 462 Output Total 1553 935 230 Balance 490.578 257 232 Weight 93.8 kg 93.8 kg Intake: IV 1734 1192 462 ACETAMINOPHEN IV (For NPO 900 ) 1,000 mg In Empty Bag 1 bag @ 400 mls/hr IVPB Q6HR [facility] Rx#:[id number] Albumin Human 5% 250 ml 250 500 250 As IVPB .STK-MED ONE Rx#: [id number] Lactated Ringers 1,000 ml 440 650 200 @ 20 mls/hr IV .Q24H [facility] Rx#:[id number] NS Pressure Bag 84 42 12 [place] 60 Intake, IV Titration 9.578 Amount Insulin Regular 100 unit 9.578 In Sodium Chloride 0.9% 100 ml @ Per Protocol IV .Q0M [facility] Rx#:[id number] Oral 300 Output: Chest Tube Drainage 668 390 130 Chest Tube Left Anterior 160 140 70 Chest Chest Tube Mediastinal 400 160 30 Chest Tube Right Anterior 108 90 30 Chest Drainage 10 65 Right Calf 10 65 Urine 875 480 100 Other: Voiding Method Indwelling Catheter Indwelling Catheter Indwelling Catheter ABP, PAP, CO, CI - Last Documented Arterial Blood Pressure 159/159 Pulmonary Artery Pressure 21/9 Cardiac Output 7.7 Cardiac Index 3.9 - Exam - Constitutional General appearance: Physical exam revealed a 66-year-old white male, very pleasant, in no distress. - EENT ENT: Slightly dry mucous membranes, throat is clear, PERRLA, EOMI. - Neck No neck masses, no JVD, no stridor. No cervical lymphadenopathy - Respiratory Clear bilaterally, no crackles or rhonchi or wheezes, good breath sound bilaterally. Symmetrical chest expansion. Chest tubes and mediastinal tube were noted. - Cardiovascular Details: Regular rhythm and rate, S1 and S2 present, negative for S3, gallop or murmur. Pericardial rub heard. Sternum is stable. - Gastrointestinal Gastrointestinal Comment(s): Abdomen: Soft, nontender, no megaly, hypoactive bowel sounds. - Genitourinary Genitourinary Comment(s): Fully catheter in place - Integumentary Integumentary Comment(s): Skin is relatively intact. - Neurologic Neurologic: Alert oriented 3, no gross focal neurologic deficit - Musculoskeletal Musculoskeletal: Adequate strength bilaterally. - Psychiatric Psychiatric: Normal mood, affect, and mental status examination. - Labs CBC & Chem 7: 07/13/17 04:30 07/13/17 04:30 Labs: Abnormal Lab Results - Last 24 Hours (Table) 07/11/17 07/11/17 07/11/17 Range/Units 09:04 11:01 11:56 RBC (4.30-5.90) m/uL Hgb (13.0-17.5) gm/dL Hct (39.0-53.0) % Plt Count (150-450) k/uL Lymphocytes # (1.0-4.8) k/uL ABG pH 7.32 L 7.34 L (7.35-7.45) ABG pCO2 49 H (35-45) mmHg ABG pO2 311 H 417 H (83-108) mmHg ABG Total CO2 26 H 26 H (19-24) mmol/L ABG O2 Saturation 99.9 H 98.0 H 100.0 H (94-97) % ABG Hematocrit 30 L (34.0-46.0) % ABG Sodium 134 L (135-146) mmol/L ABG Potassium 4.8 H (3.4-4.5) mmol/L ABG Ionized Calcium 4.2 L (4.5-5.3) mg/dL ABG Glucose 100 H 116 H 203 H (75-99) mg/dL ABG Lactic Acid (0.5-1.6) mmol/L Hemoglobin 12.2 L 9.7 L (13.0-17.5) gm/dL Glucose (74-99) mg/dL POC Glucose (mg/dL) (75-99) mg/dL Total Protein (6.3-8.2) g/dL Arterial Blood Potassium 4.8 H (3.4-4.5) mmol/L Arterial Blood Glucose 100 H 116 H 203 H (75-99) mg/dL 07/11/17 07/11/17 07/11/17 Range/Units 12:25 12:57 13:36 RBC (4.30-5.90) m/uL Hgb (13.0-17.5) gm/dL Hct (39.0-53.0) % Plt Count (150-450) k/uL Lymphocytes # (1.0-4.8) k/uL ABG pH 7.34 L 7.33 L 7.32 L (7.35-7.45) ABG pCO2 46 H (35-45) mmHg ABG pO2 181 H 269 H 259 H (83-108) mmHg ABG Total CO2 25 H 25 H (19-24) mmol/L ABG O2 Saturation 99.4 H 99.8 H 99.8 H (94-97) % ABG Hematocrit 32 L 30 L 28 L (34.0-46.0) % ABG Sodium (135-146) mmol/L ABG Potassium 5.2 H (3.4-4.5) mmol/L ABG Ionized Calcium 4.3 L 4.3 L 4.3 L (4.5-5.3) mg/dL ABG Glucose 171 H 157 H 186 H (75-99) mg/dL ABG Lactic Acid 1.7 H 2.5 H* 2.7 H* (0.5-1.6) mmol/L Hemoglobin 10.5 L 9.8 L 9.3 L (13.0-17.5) gm/dL Glucose (74-99) mg/dL POC Glucose (mg/dL) (75-99) mg/dL Total Protein (6.3-8.2) g/dL Arterial Blood Potassium 5.2 H (3.4-4.5) mmol/L Arterial Blood Glucose 171 H 157 H 186 H (75-99) mg/dL 07/11/17 07/11/17 07/12/17 Range/Units 14:07 15:19 13:43 RBC (4.30-5.90) m/uL Hgb (13.0-17.5) gm/dL Hct (39.0-53.0) % Plt Count (150-450) k/uL Lymphocytes # (1.0-4.8) k/uL ABG pH 7.32 L 7.33 L (7.35-7.45) ABG pCO2 46 H (35-45) mmHg ABG pO2 202 H 116 H (83-108) mmHg ABG Total CO2 26 H (19-24) mmol/L ABG O2 Saturation 99.6 H 98.4 H (94-97) % ABG Hematocrit 27 L (34.0-46.0) % ABG Sodium (135-146) mmol/L ABG Potassium 4.8 H (3.4-4.5) mmol/L ABG Ionized Calcium 4.4 L (4.5-5.3) mg/dL ABG Glucose 164 H 114 H (75-99) mg/dL ABG Lactic Acid 3.3 H* 2.4 H* (0.5-1.6) mmol/L Hemoglobin 8.9 L 11.2 L (13.0-17.5) gm/dL Glucose (74-99) mg/dL POC Glucose (mg/dL) 111 H (75-99) mg/dL Total Protein (6.3-8.2) g/dL Arterial Blood Potassium 4.8 H (3.4-4.5) mmol/L Arterial Blood Glucose 164 H 114 H (75-99) mg/dL 07/12/17 07/12/17 07/13/17 Range/Units 15:12 20:58 01:59 RBC (4.30-5.90) m/uL Hgb (13.0-17.5) gm/dL Hct (39.0-53.0) % Plt Count (150-450) k/uL Lymphocytes # (1.0-4.8) k/uL ABG pH (7.35-7.45) ABG pCO2 (35-45) mmHg ABG pO2 (83-108) mmHg ABG Total CO2 (19-24) mmol/L ABG O2 Saturation (94-97) % ABG Hematocrit (34.0-46.0) % ABG Sodium (135-146) mmol/L ABG Potassium (3.4-4.5) mmol/L ABG Ionized Calcium (4.5-5.3) mg/dL ABG Glucose (75-99) mg/dL ABG Lactic Acid (0.5-1.6) mmol/L Hemoglobin (13.0-17.5) gm/dL Glucose (74-99) mg/dL POC Glucose (mg/dL) 109 H 108 H 102 H (75-99) mg/dL Total Protein (6.3-8.2) g/dL Arterial Blood Potassium (3.4-4.5) mmol/L Arterial Blood Glucose (75-99) mg/dL 07/13/17 07/13/17 07/13/17 Range/Units 04:30 04:30 07:40 RBC 2.80 L (4.30-5.90) m/uL Hgb 9.0 L (13.0-17.5) gm/dL Hct 25.9 L (39.0-53.0) % Plt Count 77 L (150-450) k/uL Lymphocytes # 0.9 L (1.0-4.8) k/uL ABG pH (7.35-7.45) ABG pCO2 (35-45) mmHg ABG pO2 (83-108) mmHg ABG Total CO2 (19-24) mmol/L ABG O2 Saturation (94-97) % ABG Hematocrit (34.0-46.0) % ABG Sodium (135-146) mmol/L ABG Potassium (3.4-4.5) mmol/L ABG Ionized Calcium (4.5-5.3) mg/dL ABG Glucose (75-99) mg/dL ABG Lactic Acid (0.5-1.6) mmol/L Hemoglobin (13.0-17.5) gm/dL Glucose 106 H (74-99) mg/dL POC Glucose (mg/dL) 108 H (75-99) mg/dL Total Protein 5.3 L (6.3-8.2) g/dL Arterial Blood Potassium (3.4-4.5) mmol/L Arterial Blood Glucose (75-99) mg/dL Assessment and Plan Assessment: Impression: 1 Status post CABG for triple-vessel coronary artery disease postoperative day #2, tolerated extubation well, patient is presently on nasal cannula, relatively asymptomatic. 2 history of multiple comorbidities including hypertension, psoriasis, hypercholesterolemia, and hypothyroidism. Recommendation: Continue present supportive care measures, ambulate, continue incentive spirometry, possibly transfer out of the ICU today. Time with Patient: Less than 30
--- NOTE | 2017-07-13 12:57 | P.PN ---
Subjective Progress Note Date: 07/13/17 Principal diagnosis: Triple-vessel coronary artery disease. Totally occluded right coronary artery. Preserved left ventricular function was preoperative ejection fraction of 55% . Psoriasis, on methotrexate. Hypertension. Hyperlipidemia. Peripheral artery disease. Nicotine abuse with preoperative FEV1 94% of predicted. Mild dilatation of the ascending aorta with diffuse coronary artery disease. History of previous PTCA in 2000 hypothyroid. Family history of early onset coronary artery disease with father diagnosed before the age of 60. POD #2 elective coronary artery bypass grafting 4 using the in situ skeletonized right internal mammary artery, crossing the midline to the left anterior descending artery, skeletonized in situ left internal mammary artery to the ramus intermedius artery, reverse saphenous vein graft from the aorta to the diagonal artery, reverse saphenous vein graft from the aorta to the early arising posterior descending artery. Endoscopic harvesting of the right greater saphenous vein. Intraoperative transesophageal echocardiogram and epi- aortic scanning. Intraoperative graft flow measurements using the [employer] system. Patient's currently sitting up in the recliner in no acute distress. Denies pain, shortness of breath. Has ambulated in the hallway. Objective - Vital Signs Vital signs: Vital Signs Temp 98.4 F 07/13/17 12:00 Pulse 77 07/13/17 12:00 Resp 27 H 07/13/17 12:00 BP 101/57 07/13/17 12:00 Pulse Ox 94 L 07/13/17 12:00 Intake & Output 07/12/17 07/13/17 07/13/17 18:59 06:59 18:59 Intake Total 2043.578 1192 462 Output Total 1553 935 230 Balance 490.578 257 232 Weight 93.8 kg 93.8 kg Intake: IV 1734 1192 462 ACETAMINOPHEN IV (For NPO 900 ) 1,000 mg In Empty Bag 1 bag @ 400 mls/hr IVPB Q6HR [facility] Rx#:[id number] Albumin Human 5% 250 ml 250 500 250 As IVPB .[facility] Rx#: [id number] Lactated Ringers 1,000 ml 440 650 200 @ 20 mls/hr IV .Q24H [facility] Rx#:[id number] NS Pressure Bag 84 42 12 [place] CO 60 Intake, IV Titration 9.578 Amount Insulin Regular 100 unit 9.578 In Sodium Chloride 0.9% 100 ml @ Per Protocol IV .Q0M [facility] Rx#:[id number] Oral 300 Output: Chest Tube Drainage 668 390 130 Chest Tube Left Anterior 160 140 70 Chest Chest Tube Mediastinal 400 160 30 Chest Tube Right Anterior 108 90 30 Chest Drainage 10 65 Right Calf 10 65 Urine 875 480 100 Other: Voiding Method Indwelling Catheter Indwelling Catheter Indwelling Catheter ABP, PAP, CO, CI - Last Documented Arterial Blood Pressure 159/159 Pulmonary Artery Pressure 21/9 Cardiac Output 7.7 Cardiac Index 3.9 - Constitutional General appearance: Present: cooperative, no acute distress - Respiratory Details: Lungs sounds diminished bilaterally. Respirations even, nonlabored. Currently on 6 L high flow nasal cannula with oxygen saturations 96%. Only able to achieve 500 mL on his incentive spirometry. Effective cough. Mediastinal chest tube to continuous wall suction, 60 mL of thin serosanguineous drainage overnight, 400 mL in the last 24 hours. Left pleural chest tube to continuous wall suction, 20 mL of thin serosanguineous drainage overnight, 100 mL last 24 hours. Right pleural chest tube to continuous wall suction, 30 mL of thin serosanguineous drainage overnight, 200 mL last 24 hours. No air leaks present. - Cardiovascular Details: S1, S2 present. Regular rate and rhythm, sinus rhythm on telemetry. A/V epicardial pacemaker wires present, grounded. Sternum stable. Palpable peripheral pulses bilaterally. No edema present. Right internal jugular Cordis present. Heart hugger in place with patient demonstrating appropriate use. Antiembolism stockings, SCDs present. - Gastrointestinal Gastrointestinal Comment(s): Abdomen soft, nontender, nondistended. Active bowel sounds 4 quadrants. Tolerating diet. No bowel movement since surgery. - Genitourinary Genitourinary Comment(s): Huber present draining clear, yellow urine. Output 30-40 mL/h overnight, dropped down to 20 mL/h this morning. - Integumentary Integumentary Comment(s): Skin is warm and dry with evidence of good perfusion. Anterior chest incision well approximated and covered with dry intact dressing. Right lower extremity EVH site well approximated, NINA drain present with minimal thin serosanguineous drainage. - Neurologic Neurologic: Present: CNII-XII intact - Musculoskeletal Musculoskeletal Comment(s): Patient ambulated in hallway with nursing staff. Musculoskeletal: Present: gait normal, strength equal bilaterally - Psychiatric Psychiatric: Present: A&O x's 3, appropriate affect, intact judgment & insight - Labs CBC & Chem 7: 07/13/17 04:30 07/13/17 04:30 Labs: Abnormal Lab Results - Last 24 Hours (Table) 07/11/17 07/11/17 07/11/17 Range/Units 09:04 11:01 11:56 RBC (4.30-5.90) m/uL Hgb (13.0-17.5) gm/dL Hct (39.0-53.0) % Plt Count (150-450) k/uL Lymphocytes # (1.0-4.8) k/uL ABG pH 7.32 L 7.34 L (7.35-7.45) ABG pCO2 49 H (35-45) mmHg ABG pO2 311 H 417 H (83-108) mmHg ABG Total CO2 26 H 26 H (19-24) mmol/L ABG O2 Saturation 99.9 H 98.0 H 100.0 H (94-97) % ABG Hematocrit 30 L (34.0-46.0) % ABG Sodium 134 L (135-146) mmol/L ABG Potassium 4.8 H (3.4-4.5) mmol/L ABG Ionized Calcium 4.2 L (4.5-5.3) mg/dL ABG Glucose 100 H 116 H 203 H (75-99) mg/dL ABG Lactic Acid (0.5-1.6) mmol/L Hemoglobin 12.2 L 9.7 L (13.0-17.5) gm/dL Glucose (74-99) mg/dL POC Glucose (mg/dL) (75-99) mg/dL Total Protein (6.3-8.2) g/dL Arterial Blood Potassium 4.8 H (3.4-4.5) mmol/L Arterial Blood Glucose 100 H 116 H 203 H (75-99) mg/dL 07/11/17 07/11/17 07/11/17 Range/Units 12:25 12:57 13:36 RBC (4.30-5.90) m/uL Hgb (13.0-17.5) gm/dL Hct (39.0-53.0) % Plt Count (150-450) k/uL Lymphocytes # (1.0-4.8) k/uL ABG pH 7.34 L 7.33 L 7.32 L (7.35-7.45) ABG pCO2 46 H (35-45) mmHg ABG pO2 181 H 269 H 259 H (83-108) mmHg ABG Total CO2 25 H 25 H (19-24) mmol/L ABG O2 Saturation 99.4 H 99.8 H 99.8 H (94-97) % ABG Hematocrit 32 L 30 L 28 L (34.0-46.0) % ABG Sodium (135-146) mmol/L ABG Potassium 5.2 H (3.4-4.5) mmol/L ABG Ionized Calcium 4.3 L 4.3 L 4.3 L (4.5-5.3) mg/dL ABG Glucose 171 H 157 H 186 H (75-99) mg/dL ABG Lactic Acid 1.7 H 2.5 H* 2.7 H* (0.5-1.6) mmol/L Hemoglobin 10.5 L 9.8 L 9.3 L (13.0-17.5) gm/dL Glucose (74-99) mg/dL POC Glucose (mg/dL) (75-99) mg/dL Total Protein (6.3-8.2) g/dL Arterial Blood Potassium 5.2 H (3.4-4.5) mmol/L Arterial Blood Glucose 171 H 157 H 186 H (75-99) mg/dL 07/11/17 07/11/17 07/12/17 Range/Units 14:07 15:19 13:43 RBC (4.30-5.90) m/uL Hgb (13.0-17.5) gm/dL Hct (39.0-53.0) % Plt Count (150-450) k/uL Lymphocytes # (1.0-4.8) k/uL ABG pH 7.32 L 7.33 L (7.35-7.45) ABG pCO2 46 H (35-45) mmHg ABG pO2 202 H 116 H (83-108) mmHg ABG Total CO2 26 H (19-24) mmol/L ABG O2 Saturation 99.6 H 98.4 H (94-97) % ABG Hematocrit 27 L (34.0-46.0) % ABG Sodium (135-146) mmol/L ABG Potassium 4.8 H (3.4-4.5) mmol/L ABG Ionized Calcium 4.4 L (4.5-5.3) mg/dL ABG Glucose 164 H 114 H (75-99) mg/dL ABG Lactic Acid 3.3 H* 2.4 H* (0.5-1.6) mmol/L Hemoglobin 8.9 L 11.2 L (13.0-17.5) gm/dL Glucose (74-99) mg/dL POC Glucose (mg/dL) 111 H (75-99) mg/dL Total Protein (6.3-8.2) g/dL Arterial Blood Potassium 4.8 H (3.4-4.5) mmol/L Arterial Blood Glucose 164 H 114 H (75-99) mg/dL 07/12/17 07/12/17 07/13/17 Range/Units 15:12 20:58 01:59 RBC (4.30-5.90) m/uL Hgb (13.0-17.5) gm/dL Hct (39.0-53.0) % Plt Count (150-450) k/uL Lymphocytes # (1.0-4.8) k/uL ABG pH (7.35-7.45) ABG pCO2 (35-45) mmHg ABG pO2 (83-108) mmHg ABG Total CO2 (19-24) mmol/L ABG O2 Saturation (94-97) % ABG Hematocrit (34.0-46.0) % ABG Sodium (135-146) mmol/L ABG Potassium (3.4-4.5) mmol/L ABG Ionized Calcium (4.5-5.3) mg/dL ABG Glucose (75-99) mg/dL ABG Lactic Acid (0.5-1.6) mmol/L Hemoglobin (13.0-17.5) gm/dL Glucose (74-99) mg/dL POC Glucose (mg/dL) 109 H 108 H 102 H (75-99) mg/dL Total Protein (6.3-8.2) g/dL Arterial Blood Potassium (3.4-4.5) mmol/L Arterial Blood Glucose (75-99) mg/dL 03/07/13/17 07/13/17 Range/Units 04:30 04:30 07:40 RBC 2.80 L (4.30-5.90) m/uL Hgb 9.0 L (13.0-17.5) gm/dL Hct 25.9 L (39.0-53.0) % Plt Count 77 L (150-450) k/uL Lymphocytes # 0.9 L (1.0-4.8) k/uL ABG pH (7.35-7.45) ABG pCO2 (35-45) mmHg ABG pO2 (83-108) mmHg ABG Total CO2 (19-24) mmol/L ABG O2 Saturation (94-97) % ABG Hematocrit (34.0-46.0) % ABG Sodium (135-146) mmol/L ABG Potassium (3.4-4.5) mmol/L ABG Ionized Calcium (4.5-5.3) mg/dL ABG Glucose (75-99) mg/dL ABG Lactic Acid (0.5-1.6) mmol/L Hemoglobin (13.0-17.5) gm/dL Glucose 106 H (74-99) mg/dL POC Glucose (mg/dL) 108 H (75-99) mg/dL Total Protein 5.3 L (6.3-8.2) g/dL Arterial Blood Potassium (3.4-4.5) mmol/L Arterial Blood Glucose (75-99) mg/dL - Imaging and Cardiology Chest x-ray: report reviewed, image reviewed Assessment and Plan (1) Peripheral artery disease Current Visit: Yes Status: Chronic Code(s): I73.9 - PERIPHERAL VASCULAR DISEASE, UNSPECIFIED SNOMED Code(s): 994003360 (2) CAD (coronary artery disease) Current Visit: Yes Status: Chronic Priority: High Code(s): I25.10 - ATHSCL HEART DISEASE OF [place] CORONARY ARTERY W/O ANG PCTRS SNOMED Code(s): 28443416 (3) Psoriasis Current Visit: Yes Status: Chronic Priority: Medium Code(s): L40.9 - PSORIASIS, UNSPECIFIED SNOMED Code(s): 9299041 (4) Family history of early CAD Current Visit: Yes Status: Chronic Code(s): Z82.49 - FAMILY HX OF I[place]HE[place] HEART DIS AND OTH DIS OF THE CIRC SYS SNOMED Code(s): 463240568 (5) Hyperlipidemia Current Visit: Yes Status: Chronic Code(s): E78.5 - HYPERLIPIDEMIA, UNSPECIFIED SNOMED Code(s): 05340796 (6) Presence of stent in coronary artery in patient with coronary artery disease Current Visit: Yes Status: Chronic Code(s): I25.10 - ATHSCL HEART DISEASE OF [place] CORONARY ARTERY W/O ANG PCTRS; Z95.5 - PRESENCE OF CORONARY ANGIOPLASTY IMPLANT AND GRAFT SNOMED Code(s): 873488131 (7) Tobacco dependence Current Visit: Yes Status: Chronic Code(s): F17.200 - NICOTINE DEPENDENCE, UNSPECIFIED, UNCOMPLICATED SNOMED Code(s): 94205958 (8) Hypertension Current Visit: Yes Status: Chronic Priority: Medium Code(s): I10 - ESSENTIAL (PRIMARY) HYPERTENSION SNOMED Code(s): 29210216 (9) Hypothyroid Current Visit: Yes Status: Chronic Priority: Medium Code(s): E03.9 - HYPOTHYROIDISM, UNSPECIFIED SNOMED Code(s): 32133130 Plan: 1. Continue aspirin, Plavix, statin, subcu heparin, beta jennifer. Will increase beta jennifer as tolerated. 2. Wean O2 as tolerated. Encourage incentive spirometry use 10 times every hour. 3. Encourage smoking cessation. 4. Increase activity, ambulate in hallway. PT/OT/cardiac rehab following. 5. GI/DVT prophylaxis. 6. Will monitor daily labs and x-rays. 7. Keep Huber catheter for accurate intake and output. 8. Likely will discontinue mediastinal chest tube today. 9. Hold methotrexate for now. 10. Insulin drip/diabetic management per primary care service. 11. More recommendations to follow. Time with Patient: Greater than 30
--- NOTE | 2017-07-13 13:09 | P.PN ---
Subjective Patient is sitting comfortably in bed. His blood pressures 101 systolic. Through the night his blood pressure was low after he received IV Lasix. He did 60 albumin. He has no chest pain no dizziness lightheadedness is breathing is normal he is not short of breath rhythm is normal ,occasional premature beats noted. Blood pressure 101/57 mmHg respirations 18 heart rate in the 70s afebrile 98.4F Breath sounds: Conductive sounds audible no rhonchi no crackles heart sounds soft Abdomen soft nontender Impression Triple-vessel coronary artery disease preserved LV systolic function status post coronary artery bypass grafting Hypertension Dyslipidemia Peripheral vascular disease Mildly dilated ascending aorta Plan Continue current medications without any changes Objective - Vital Signs Vital signs: Vital Signs Temp 98.4 F 07/13/17 12:00 Pulse 77 07/13/17 12:00 Resp 27 H 07/13/17 12:00 BP 101/57 07/13/17 12:00 Pulse Ox 94 L 07/13/17 12:00 Intake & Output 07/12/17 07/13/17 07/13/17 18:59 06:59 18:59 Intake Total 2043.578 1192 875 Output Total 1553 935 280 Balance 490.578 257 595 Weight 93.8 kg 93.8 kg Intake: IV 1734 1192 515 ACETAMINOPHEN IV (For NPO 900 ) 1,000 mg In Empty Bag 1 bag @ 400 mls/hr IVPB Q6HR [facility] Rx#:[id number] Albumin Human 5% 250 ml 250 500 250 As IVPB .[facility] Rx#: [id number] Lactated Ringers 1,000 ml 440 650 250 @ 20 mls/hr IV .Q24H [facility] Rx#:[id number] NS Pressure Bag 84 42 15 [place] CO 60 Intake, IV Titration 9.578 Amount Insulin Regular 100 unit 9.578 In Sodium Chloride 0.9% 100 ml @ Per Protocol IV .Q0M [facility] Rx#:[id number] Oral 300 360 Output: Chest Tube Drainage 668 390 130 Chest Tube Left Anterior 160 140 70 Chest Chest Tube Mediastinal 400 160 30 Chest Tube Right Anterior 108 90 30 Chest Drainage 10 65 Right Calf 10 65 Urine 875 480 150 Other: Voiding Method Indwelling Catheter Indwelling Catheter Indwelling Catheter ABP, PAP, CO, CI - Last Documented Arterial Blood Pressure 159/159 Pulmonary Artery Pressure 21/9 Cardiac Output 7.7 Cardiac Index 3.9 - Labs CBC & Chem 7: 07/13/17 04:30 07/13/17 04:30 Labs: Abnormal Lab Results - Last 24 Hours (Table) 07/11/17 07/11/17 07/11/17 Range/Units 09:04 11:01 11:56 RBC (4.30-5.90) m/uL Hgb (13.0-17.5) gm/dL Hct (39.0-53.0) % Plt Count (150-450) k/uL Lymphocytes # (1.0-4.8) k/uL ABG pH 7.32 L 7.34 L (7.35-7.45) ABG pCO2 49 H (35-45) mmHg ABG pO2 311 H 417 H (83-108) mmHg ABG Total CO2 26 H 26 H (19-24) mmol/L ABG O2 Saturation 99.9 H 98.0 H 100.0 H (94-97) % ABG Hematocrit 30 L (34.0-46.0) % ABG Sodium 134 L (135-146) mmol/L ABG Potassium 4.8 H (3.4-4.5) mmol/L ABG Ionized Calcium 4.2 L (4.5-5.3) mg/dL ABG Glucose 100 H 116 H 203 H (75-99) mg/dL ABG Lactic Acid (0.5-1.6) mmol/L Hemoglobin 12.2 L 9.7 L (13.0-17.5) gm/dL Glucose (74-99) mg/dL POC Glucose (mg/dL) (75-99) mg/dL Total Protein (6.3-8.2) g/dL Arterial Blood Potassium 4.8 H (3.4-4.5) mmol/L Arterial Blood Glucose 100 H 116 H 203 H (75-99) mg/dL 07/11/17 07/11/17 07/11/17 Range/Units 12:25 12:57 13:36 RBC (4.30-5.90) m/uL Hgb (13.0-17.5) gm/dL Hct (39.0-53.0) % Plt Count (150-450) k/uL Lymphocytes # (1.0-4.8) k/uL ABG pH 7.34 L 7.33 L 7.32 L (7.35-7.45) ABG pCO2 46 H (35-45) mmHg ABG pO2 181 H 269 H 259 H (83-108) mmHg ABG Total CO2 25 H 25 H (19-24) mmol/L ABG O2 Saturation 99.4 H 99.8 H 99.8 H (94-97) % ABG Hematocrit 32 L 30 L 28 L (34.0-46.0) % ABG Sodium (135-146) mmol/L ABG Potassium 5.2 H (3.4-4.5) mmol/L ABG Ionized Calcium 4.3 L 4.3 L 4.3 L (4.5-5.3) mg/dL ABG Glucose 171 H 157 H 186 H (75-99) mg/dL ABG Lactic Acid 1.7 H 2.5 H* 2.7 H* (0.5-1.6) mmol/L Hemoglobin 10.5 L 9.8 L 9.3 L (13.0-17.5) gm/dL Glucose (74-99) mg/dL POC Glucose (mg/dL) (75-99) mg/dL Total Protein (6.3-8.2) g/dL Arterial Blood Potassium 5.2 H (3.4-4.5) mmol/L Arterial Blood Glucose 171 H 157 H 186 H (75-99) mg/dL 07/11/17 07/11/17 07/12/17 Range/Units 14:07 15:19 13:43 RBC (4.30-5.90) m/uL Hgb (13.0-17.5) gm/dL Hct (39.0-53.0) % Plt Count (150-450) k/uL Lymphocytes # (1.0-4.8) k/uL ABG pH 7.32 L 7.33 L (7.35-7.45) ABG pCO2 46 H (35-45) mmHg ABG pO2 202 H 116 H (83-108) mmHg ABG Total CO2 26 H (19-24) mmol/L ABG O2 Saturation 99.6 H 98.4 H (94-97) % ABG Hematocrit 27 L (34.0-46.0) % ABG Sodium (135-146) mmol/L ABG Potassium 4.8 H (3.4-4.5) mmol/L ABG Ionized Calcium 4.4 L (4.5-5.3) mg/dL ABG Glucose 164 H 114 H (75-99) mg/dL ABG Lactic Acid 3.3 H* 2.4 H* (0.5-1.6) mmol/L Hemoglobin 8.9 L 11.2 L (13.0-17.5) gm/dL Glucose (74-99) mg/dL POC Glucose (mg/dL) 111 H (75-99) mg/dL Total Protein (6.3-8.2) g/dL Arterial Blood Potassium 4.8 H (3.4-4.5) mmol/L Arterial Blood Glucose 164 H 114 H (75-99) mg/dL 07/12/17 07/12/17 07/13/17 Range/Units 15:12 20:58 01:59 RBC (4.30-5.90) m/uL Hgb (13.0-17.5) gm/dL Hct (39.0-53.0) % Plt Count (150-450) k/uL Lymphocytes # (1.0-4.8) k/uL ABG pH (7.35-7.45) ABG pCO2 (35-45) mmHg ABG pO2 (83-108) mmHg ABG Total CO2 (19-24) mmol/L ABG O2 Saturation (94-97) % ABG Hematocrit (34.0-46.0) % ABG Sodium (135-146) mmol/L ABG Potassium (3.4-4.5) mmol/L ABG Ionized Calcium (4.5-5.3) mg/dL ABG Glucose (75-99) mg/dL ABG Lactic Acid (0.5-1.6) mmol/L Hemoglobin (13.0-17.5) gm/dL Glucose (74-99) mg/dL POC Glucose (mg/dL) 109 H 108 H 102 H (75-99) mg/dL Total Protein (6.3-8.2) g/dL Arterial Blood Potassium (3.4-4.5) mmol/L Arterial Blood Glucose (75-99) mg/dL 07/13/17 07/13/17 07/13/17 Range/Units 04:30 04:30 07:40 RBC 2.80 L (4.30-5.90) m/uL Hgb 9.0 L (13.0-17.5) gm/dL Hct 25.9 L (39.0-53.0) % Plt Count 77 L (150-450) k/uL Lymphocytes # 0.9 L (1.0-4.8) k/uL ABG pH (7.35-7.45) ABG pCO2 (35-45) mmHg ABG pO2 (83-108) mmHg ABG Total CO2 (19-24) mmol/L ABG O2 Saturation (94-97) % ABG Hematocrit (34.0-46.0) % ABG Sodium (135-146) mmol/L ABG Potassium (3.4-4.5) mmol/L ABG Ionized Calcium (4.5-5.3) mg/dL ABG Glucose (75-99) mg/dL ABG Lactic Acid (0.5-1.6) mmol/L Hemoglobin (13.0-17.5) gm/dL Glucose 106 H (74-99) mg/dL POC Glucose (mg/dL) 108 H (75-99) mg/dL Total Protein 5.3 L (6.3-8.2) g/dL Arterial Blood Potassium (3.4-4.5) mmol/L Arterial Blood Glucose (75-99) mg/dL
[2017-07-13 16:49] LABS: Glucose,Whole Blood 96 mg/dL (75-99)
[2017-07-13 17:43] LABS: Iron Saturation 3.26 (15.00-50.00)
[2017-07-13] MEDS: LACTATED RINGERS 1,000 ML IV SCH (18:44)
[2017-07-13] MEDS: SENNOSIDES-DOCUSATE SODIUM 1 EACH TAB PO SCH (20:46)
[2017-07-14] MEDS: HEPARIN SODIUM,PORCINE 5,000 UNIT/ML 1 ML VIAL SQ SCH ×3 (00:14→23:00)
[2017-07-14] MEDS: KETOROLAC 30 MG/ML 1 ML VIAL IVP SCH ×4 (01:47→18:50)
[2017-07-14 04:59] LABS: Basophils % (A) 0 %; Eosinophils # (A) 0.2 k/uL (0-0.7); Eosinophils % (A) 5 %; HCT 26.5 % (39.0-53.0); HGB 9.3 gm/dL (13.0-17.5); Lymphocytes % (A) 19 %; MCH 32.1 pg (25.0-35.0); Mean Platelet Volume 8.5; Monocytes # (A) 0.2 k/uL (0-1.0); Monocytes % (A) 4 %; Neutrophils # (A) 3.4 k/uL (1.3-7.7); Neutrophils % (A) 69 %; RBC 2.88 m/uL (4.30-5.90); RDW 13.3 % (11.5-15.5); WBC 4.9 k/uL (3.8-10.6)
[2017-07-14 05:01] LABS: Platelet Count 89 k/uL (150-450)
[2017-07-14 05:08] LABS: ALT 23 U/L (21-72); AST 21 U/L (17-59); Albumin 3.4 g/dL (3.5-5.0); Alkaline Phosphatase 41 U/L (38-126); Anion Gap 6 mmol/L; Blood Urea Nitrogen 20 mg/dL (9-20); Calcium 9.1 mg/dL (8.4-10.2); Carbon Dioxide 29 mmol/L (22-30); Chloride 101 mmol/L (98-107); Glucose 104 mg/dL (74-99); Magnesium 1.9 mg/dL (1.6-2.3); Phosphorus 3.4 mg/dL (2.5-4.5); Potassium 4.1 mmol/L (3.5-5.1); Sodium 136 mmol/L (137-145); Total Bilirubin 0.7 mg/dL (0.2-1.3); Total Protein 5.2 g/dL (6.3-8.2)
[2017-07-14] MEDS ORDERED: Magnesium Replacement Protocol 1 EACH MISC MISCELLANE PRN (05:12)
[2017-07-14] MEDS: LEVOTHYROXINE 75 MCG TAB PO SCH (05:33)
[2017-07-14] MEDS: MAGNESIUM SULFATE-D5W PMX 1 GM in DEXTROSE/WATER 1 100ML.BAG IVPB SCH ×2 (06:29→16:43)
[2017-07-14] MEDS: INSULIN ASPART 100 UNIT/ML 1 ML 10 ML VIAL SQ SCH ×4 (07:03→22:34)
[2017-07-14 07:04] LABS: Glucose,Whole Blood 121 mg/dL (75-99)
[2017-07-14] MEDS: IPRATROPIUM-ALBUTEROL 3 ML NEB INHALATION SCH ×4 (07:27→20:45)
--- NOTE | 2017-07-14 08:15 | XR ---
EXAMINATION TYPE: XR chest 1V DATE OF EXAM: 07/14/2017 COMPARISON: 07/13/2017 HISTORY: 66-year-old male postop CABG TECHNIQUE: Single frontal view of the chest is obtained. FINDINGS: Right-sided central catheter with tip at the mid SVC level. Median sternotomy wires and post-CABG cli ps in the mediastinum. Right-sided basilar chest tube and left apically directed chest tube are in pl billy. Small right apical pneumothorax redemonstrated, slightly decreased in size in the interval. Hear t remains borderline enlarged with diffuse interstitial prominence and patchy bibasilar densities wit h small left effusion. IMPRESSION: 1. Overall stable exam with CHF and pulmonary vascular congestion. 2. Small left effusion with adjacent left basilar atelectasis and/or consolidation. 3. The small right apical pneumothorax is slightly smaller in the interval. Chest tubes in place.
[2017-07-14] MEDS ORDERED: FUROSEMIDE 10 MG/ML 2 ML VIAL IV ONE (08:38)
[2017-07-14] MEDS: METOPROLOL TARTRATE 12.5 MG TAB PO SCH ×2 (08:58→21:26)
[2017-07-14] MEDS: FOLIC ACID 1 MG TAB PO SCH (08:58)
[2017-07-14] MEDS: ATORVASTATIN 40 MG TAB PO SCH (08:58)
[2017-07-14] MEDS: CLOPIDOGREL 75 MG TAB PO SCH (08:58)
[2017-07-14] MEDS: ASPIRIN 81 MG PO SCH (08:59)
[2017-07-14] MEDS: MUPIROCIN 2% OINT 22 GM TUBE NASAL SCH ×2 (09:00→21:26)
--- NOTE | 2017-07-14 12:03 | P.PN ---
Subjective Patient is sitting in a chair and looks comfortable. Denies any significant pain no shortness of breath no dizziness On examination pulse rate is in the 70s and 80s, blood pressure 102/54 mmHg respirations normal heart sounds are normal no murmurs Breath sounds are clear Abdomen soft nontender Extremities warm Patient still has chest tubes in situ Suggest continue ICU care post CT surgery, continue aspirin atorvastatin Plavix and low-dose beta blockers Objective - Vital Signs Vital signs: Vital Signs Temp 97.7 F 07/14/17 04:00 Pulse 87 07/14/17 07:43 Resp 16 07/14/17 07:00 BP 102/54 07/14/17 07:00 Pulse Ox 96 07/14/17 07:00 Intake & Output 07/13/17 07/14/17 07/14/17 18:59 06:59 18:59 Intake Total 1856 603 Output Total 475 1645 50 Balance 1381 -1042 -50 Weight 93.8 kg 96.8 kg 96.8 kg Intake: IV 1136 603 Albumin Human 5% 250 ml 500 As IVPB .[facility] Rx#: [id number] Lactated Ringers 1,000 ml 600 600 @ 20 mls/hr IV .Q24H [facility] Rx#:[id number] NS Pressure Bag 36 3 Oral 720 Output: Chest Tube Drainage 130 490 Chest Tube Left Anterior 70 260 Chest Chest Tube Mediastinal 30 Chest Tube Right Anterior 30 230 Chest Drainage 105 Right Calf 105 Urine 345 1050 50 Other: Voiding Method Indwelling Catheter Indwelling Catheter ABP, PAP, CO, CI - Last Documented Arterial Blood Pressure 159/159 Pulmonary Artery Pressure 21/9 Cardiac Output 7.7 Cardiac Index 3.9 - Labs CBC & Chem 7: 07/14/17 04:45 07/14/17 04:45 Labs: Abnormal Lab Results - Last 24 Hours (Table) 07/13/17 07/14/17 07/14/17 Range/Units 04:30 04:45 04:45 RBC 2.88 L (4.30-5.90) m/uL Hgb 9.3 L (13.0-17.5) gm/dL Hct 26.5 L (39.0-53.0) % Plt Count 89 L (150-450) k/uL Sodium 136 L (137-145) mmol/L Glucose 104 H (74-99) mg/dL POC Glucose (mg/dL) (75-99) mg/dL Iron 6 L (65-175) ug/dL TIBC 184 L (228-460) ug/dL Iron Saturation 3.26 L (15.00-50.00) Ferritin 484.3 H (22.0-322.0) ng/mL Total Protein 5.2 L (6.3-8.2) g/dL Albumin 3.4 L (3.5-5.0) g/dL 07/14/17 Range/Units 07:02 RBC (4.30-5.90) m/uL Hgb (13.0-17.5) gm/dL Hct (39.0-53.0) % Plt Count (150-450) k/uL Sodium (137-145) mmol/L Glucose (74-99) mg/dL POC Glucose (mg/dL) 121 H (75-99) mg/dL Iron (65-175) ug/dL TIBC (228-460) ug/dL Iron Saturation (15.00-50.00) Ferritin (22.0-322.0) ng/mL Total Protein (6.3-8.2) g/dL Albumin (3.5-5.0) g/dL
[2017-07-14 12:05] LABS: Glucose,Whole Blood 97 mg/dL (75-99)
--- NOTE | 2017-07-14 13:02 | P.PN ---
Subjective Progress Note Date: 07/14/17 Principal diagnosis: Status post CABG, postoperative day #3 this is a 66-year-old white male with triple-vessel coronary artery disease, this was documented on recent cardiac catheterization, patient has preserved LV function. Patient underwent elective myocardial revascularization today, postoperatively he was on mechanical ventilation, and this consult was initiated. Initial ventilator settings with IMV of 12, volume of 550, FiO2 of 100%, and the 5. ABG reflected significant respiratory acidosis, has the patient was placed on assist-control mode of mechanical ventilation initially and a of 16 then increased rate of 20. Repeat ABG is pending. Chest x-ray postoperatively showed adequate placement of endotracheal Q, all lines and chest usual noted to be in place. All labs were reviewed including 2 different sets of ABGs. Patient was reevaluated today on 07/12/2017, he was extubated last night uneventfully, presently on nasal cannula, in no distress, tolerated the extubation well. Chest x-ray today showed tiny bilateral pneumothoraces, and scattered areas of atelectasis. Patient again is asymptomatic, his labs are unremarkable with hemoglobin of 10.2, basic metabolic profile is relatively unremarkable. Patient was reevaluated today on 07/13/2017, sitting in a chair, in no distress. Basically asymptomatic. Denies any shortness of breath, no cough, no wheezing , no chest pain. Chest x-ray was reviewed and it showed mostly postoperative changes. Small right apical pneumothorax was noted, both chest tubes in both sides remain in place, minimal atelectasis at the bases was also noted. Laboratory studies including CBC and basic metabolic profile and renal profile are normal. Reevaluated today on 07/14/2017, doing well, relatively asymptomatic, no cough no wheezing no shortness of breath, chest x-ray and all his labs were reviewed. Patient is doing well with incentive spirometry. And he is presently an overflow from selective Objective - Vital Signs Vital signs: Vital Signs Temp 97.7 F 07/14/17 04:00 Pulse 87 07/14/17 07:43 Resp 16 07/14/17 07:00 BP 102/54 07/14/17 07:00 Pulse Ox 96 07/14/17 07:00 Intake & Output 07/13/17 07/14/17 07/14/17 18:59 06:59 18:59 Intake Total 1856 603 Output Total 475 1645 50 Balance 1381 -1042 -50 Weight 93.8 kg 96.8 kg 96.8 kg Intake: IV 1136 603 Albumin Human 5% 250 ml 500 As IVPB .[facility] Rx#: [id number] Lactated Ringers 1,000 ml 600 600 @ 20 mls/hr IV .Q24H [facility] Rx#:[id number] NS Pressure Bag 36 3 Oral 720 Output: Chest Tube Drainage 130 490 Chest Tube Left Anterior 70 260 Chest Chest Tube Mediastinal 30 Chest Tube Right Anterior 30 230 Chest Drainage 105 Right Calf 105 Urine 345 1050 50 Other: Voiding Method Indwelling Catheter Indwelling Catheter ABP, PAP, CO, CI - Last Documented Arterial Blood Pressure 159/159 Pulmonary Artery Pressure 21/9 Cardiac Output 7.7 Cardiac Index 3.9 - Exam - Constitutional General appearance: Physical exam revealed a 66-year-old white male, very pleasant, in no distress. - EENT ENT: Slightly dry mucous membranes, throat is clear, PERRLA, EOMI. - Neck No neck masses, no JVD, no stridor. No cervical lymphadenopathy - Respiratory Clear bilaterally, no crackles or rhonchi or wheezes, good breath sound bilaterally. Symmetrical chest expansion. - Cardiovascular Details: Regular rhythm and rate, S1 and S2 present, negative for S3, gallop or murmur. Pericardial rub heard. Sternum is stable. - Gastrointestinal Gastrointestinal Comment(s): Abdomen: Soft, nontender, no megaly, hypoactive bowel sounds. - Genitourinary Genitourinary Comment(s): Fully catheter in place - Integumentary Integumentary Comment(s): Skin is relatively intact. - Neurologic Neurologic: Alert oriented 3, no gross focal neurologic deficit - Musculoskeletal Musculoskeletal: Adequate strength bilaterally. - Psychiatric Psychiatric: Normal mood, affect, and mental status examination. - Labs CBC & Chem 7: 07/14/17 04:45 07/14/17 04:45 Labs: Abnormal Lab Results - Last 24 Hours (Table) 07/13/17 07/14/17 07/14/17 Range/Units 04:30 04:45 04:45 RBC 2.88 L (4.30-5.90) m/uL Hgb 9.3 L (13.0-17.5) gm/dL Hct 26.5 L (39.0-53.0) % Plt Count 89 L (150-450) k/uL Sodium 136 L (137-145) mmol/L Glucose 104 H (74-99) mg/dL POC Glucose (mg/dL) (75-99) mg/dL Iron 6 L (65-175) ug/dL TIBC 184 L (228-460) ug/dL Iron Saturation 3.26 L (15.00-50.00) Ferritin 484.3 H (22.0-322.0) ng/mL Total Protein 5.2 L (6.3-8.2) g/dL Albumin 3.4 L (3.5-5.0) g/dL 07/14/17 Range/Units 07:02 RBC (4.30-5.90) m/uL Hgb (13.0-17.5) gm/dL Hct (39.0-53.0) % Plt Count (150-450) k/uL Sodium (137-145) mmol/L Glucose (74-99) mg/dL POC Glucose (mg/dL) 121 H (75-99) mg/dL Iron (65-175) ug/dL TIBC (228-460) ug/dL Iron Saturation (15.00-50.00) Ferritin (22.0-322.0) ng/mL Total Protein (6.3-8.2) g/dL Albumin (3.5-5.0) g/dL Assessment and Plan Assessment: Impression: 1 Status post CABG for triple-vessel coronary artery disease postoperative day #3, 2 history of multiple comorbidities including hypertension, psoriasis, hypercholesterolemia, and hypothyroidism. Recommendation: Continue present supportive care measures, ambulate, continue incentive spirometry, we'll follow Time with Patient: Less than 30
--- NOTE | 2017-07-14 13:32 | P.PN ---
Subjective Progress Note Date: 07/14/17 patient doing well has minimal complaints, reports to be working with his incentive spirometry as directed, also has had some physical therapy and has been ambulatory on the unit. No acute events overnight Objective - Vital Signs Vital signs: Vital Signs Temp 97.7 F 07/14/17 04:00 Pulse 87 07/14/17 07:43 Resp 16 07/14/17 07:00 BP 102/54 07/14/17 07:00 Pulse Ox 96 07/14/17 07:00 Intake & Output 07/13/17 07/14/17 07/14/17 18:59 06:59 18:59 Intake Total 1856 603 Output Total 475 1645 50 Balance 1381 -1042 -50 Weight 93.8 kg 96.8 kg 96.8 kg Intake: IV 1136 603 Albumin Human 5% 250 ml 500 As IVPB .[facility] Rx#: [id number] Lactated Ringers 1,000 ml 600 600 @ 20 mls/hr IV .Q24H [facility] Rx#:[id number] NS Pressure Bag 36 3 Oral 720 Output: Chest Tube Drainage 130 490 Chest Tube Left Anterior 70 260 Chest Chest Tube Mediastinal 30 Chest Tube Right Anterior 30 230 Chest Drainage 105 Right Calf 105 Urine 345 1050 50 Other: Voiding Method Indwelling Catheter Indwelling Catheter ABP, PAP, CO, CI - Last Documented Arterial Blood Pressure 159/159 Pulmonary Artery Pressure 21/9 Cardiac Output 7.7 Cardiac Index 3.9 - Exam Constitutional: vital signs stable, Not in acute distress, pleasant, conversant, Shields catheter in place, patient has [address] Lungs: Good breath sounds bilaterally, normal respiratory effort no use of accessory muscles, chest binder in place, surgical dressing in place looks dry and clean and intact over the sternum Cardiovascular: Regular rate and rhythm, no murmurs, no gallops, no rubs, no peripheral edema Gastrointestinal: Soft, no tenderness to palpation,bowel sounds positive Extremities: No digital cyanosis or clubbing, capillary refill is immediate over bilateral big toes , surgical dressing and drain over right leg due to saphenous vein harvesting, Psych: Alert, oriented to place, person and time, appropriate affect, intact judgment - Labs CBC & Chem 7: 07/14/17 04:45 07/14/17 04:45 Labs: Abnormal Lab Results - Last 24 Hours (Table) 07/13/17 07/14/17 07/14/17 Range/Units 04:30 04:45 04:45 RBC 2.88 L (4.30-5.90) m/uL Hgb 9.3 L (13.0-17.5) gm/dL Hct 26.5 L (39.0-53.0) % Plt Count 89 L (150-450) k/uL Sodium 136 L (137-145) mmol/L Glucose 104 H (74-99) mg/dL POC Glucose (mg/dL) (75-99) mg/dL Iron 6 L (65-175) ug/dL TIBC 184 L (228-460) ug/dL Iron Saturation 3.26 L (15.00-50.00) Ferritin 484.3 H (22.0-322.0) ng/mL Total Protein 5.2 L (6.3-8.2) g/dL Albumin 3.4 L (3.5-5.0) g/dL 07/14/17 Range/Units 07:02 RBC (4.30-5.90) m/uL Hgb (13.0-17.5) gm/dL Hct (39.0-53.0) % Plt Count (150-450) k/uL Sodium (137-145) mmol/L Glucose (74-99) mg/dL POC Glucose (mg/dL) 121 H (75-99) mg/dL Iron (65-175) ug/dL TIBC (228-460) ug/dL Iron Saturation (15.00-50.00) Ferritin (22.0-322.0) ng/mL Total Protein (6.3-8.2) g/dL Albumin (3.5-5.0) g/dL Assessment and Plan Assessment: This is a 66-year-old male with history of coronary disease, psoriasis on methotrexate, hypertension, hyperlipidemia, hypothyroidism who presented for elective CABG. 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 At that time echocardiogram showed preserved EF of 55%, trivial tricuspid regurgitation and aortic root 4.5 cm. 3 weeks ago he underwent cardiac catheterization that showed severe and progressive coronary artery disease with stenosis in left main LAD and RCA and diagonal and the in-stent stenosis. He was then referred to cardiothoracic surgery for CABG , he underwent quadruple bypass with both internal mammary arteries and saphenous veins harvesting. He is currently intensive care unit initially was intubated and sedated , had a brief period of respiratory acidosis that was corrected with vent adjustment, later he was successfully extubated on postoperative day one, he has been doing well since then. Insulin drip discontinued and he transitioned to SC insulin per sliding scale for tight glycemic control . cardiothoracic surgery team and the ICU team is continuing his ICU care and management postop. Medicine service is assisting with medical management. Patient has low platelets and low Hgb chronically, this is thought to be due to taking methotrexate (known side effect) he denies any bleeding, other than expected bleeding during surgery , blood draws, and the three chest tubes during his post op care, which is resulting in slight drop of his hemoglobin Plan: #Coronary artery disease status post quadruple bypass postoperative day #3 # CAD Management per cardiothoracic surgery team Patient was extubated successfully on POD #1 pain well controlled he seems to be stable at this point continue ASA, plavix, statin low dose BB #Hypothyroidism, stable Currently on Synthroid TSH suppressed Free T4 at goal No immediate need for changes in his Synthroid dose continue regular follow-up outpatient #Chronic bicytopenia , due to Methotrexate side effect #Postoperative anemia Continue to monitor hemoglobin Transfuse as needed to keep hemoglobin above 7 currently does not seem to be symptomatic from anemia, however patient has very limited activity to evaluate yet. consider discussing with PCP , other options to manage Psoriasis , due to side effects of Methotrexate on blood count check Iron studies Consider PO iron #Hypertension currently continues to have borderline low normal blood pressure continue to monitor on low dose BB #Psoriasis Continue to hold the methotrexate for at least 2-3 weeks postop, as methotrexate can affect wound healing, If meanwhile psoriasis rebounds with severe symptoms that patient could not tolerate then consider restarting methotrexate. #DVT prophylaxis Patient currently on heparin sc TID consider removing shields catheter, monitor for urinary retention encouraged to use IS.
[2017-07-14] MEDS: LACTATED RINGERS 1,000 ML IV SCH (15:42)
[2017-07-14] MEDS: PANTOPRAZOLE 40 MG TABLET PO SCH (16:44)
[2017-07-14] MEDS: HYDROcodone/APAP 5-325MG 1 EACH TAB PO PRN (16:44)
[2017-07-14 17:16] LABS: Glucose,Whole Blood 116 mg/dL (75-99)
--- NOTE | 2017-07-14 17:25 | P.PN ---
Subjective Progress Note Date: 07/14/17 Principal diagnosis: Triple-vessel coronary artery disease, totally occluded right coronary artery, preserved left ventricular function with a preoperative ejection fraction of 55% , mild dilation of his ascending, hypertension, hyperlipidemia, history of coronary artery disease with previous PTCA in 2000 and [facility], current tobacco dependence, hypothyroid, psoriasis on methotrexate, peripheral arterial disease and family history of early onset coronary artery disease with his father being diagnosed before the age of 60. POD #3, elective coronary artery bypass grafting 4 using the in situ skeletonized right internal mammary artery, crossing the midline to the left anterior descending coronary artery, the skeletonized in situ left internal mammary artery to the ramus intermedius coronary artery, a reverse greater saphenous vein graft from the aorta to the diagonal coronary artery, a reverse greater saphenous vein graft from the aorta to early rising posterior descending coronary artery. Endoscopic harvesting of the right greater saphenous vein. Intraoperative transesophageal echocardiogram and epi-aortic scanning. Intraoperative graft flow measurement using the [employer] system. Patient is sitting up to the bedside chair. He is in no acute distress. He currently rates his pain 2 out of 10 on the pain scale to his chest tube insertion sites. Oxygen saturation are 96% on 5 L nasal cannula. He is achieving 1000 mL on his incentive spirometry. He is alert and oriented 3. He is tolerating oral intake. Objective - Vital Signs Vital signs: Vital Signs Temp 98.0 F 07/14/17 12:00 Pulse 90 07/14/17 16:53 Resp 34 H 07/14/17 15:30 BP 96/62 07/14/17 15:30 Pulse Ox 94 L 07/14/17 15:30 Intake & Output 07/13/17 07/14/17 07/14/17 18:59 06:59 18:59 Intake Total 1856 603 942 Output Total 475 1645 1090 Balance 1381 -1042 -148 Weight 93.8 kg 96.8 kg 96.8 kg Intake: IV 1136 603 122 Albumin Human 5% 250 ml 500 As IVPB .[facility] Rx#: [id number] Lactated Ringers 1,000 ml 600 600 110 @ 20 mls/hr IV .Q24H [facility] Rx#:[id number] NS Pressure Bag 36 3 12 Intake, IV Titration 100 Amount Magnesium Sulfate-D5w Pmx 100 1 gm In Dextrose/Water 1 100ml.bag @ 100 mls/hr IVPB Q1H [facility] Rx#: [id number] Oral 720 720 Output: Chest Tube Drainage 130 490 120 Chest Tube Left Anterior 70 260 60 Chest Chest Tube Mediastinal 30 Chest Tube Right Anterior 30 230 60 Chest Drainage 105 50 Right Calf 105 50 Urine 345 1050 920 Other: Voiding Method Indwelling Catheter Indwelling Catheter Indwelling Catheter ABP, PAP, CO, CI - Last Documented Arterial Blood Pressure 159/159 Pulmonary Artery Pressure 21/9 Cardiac Output 7.7 Cardiac Index 3.9 - Constitutional General appearance: Present: cooperative, no acute distress - EENT ENT: Present: hearing grossly normal - Neck Details: Neck is supple, no JVD or lymphadenopathy. - Respiratory Details: Lung sounds with few scattered crackles throughout. Respirations are symmetrical and nonlabored. Oxygen saturation are 96% on 5 L nasal cannula. He is achieving 1000 mL on his incentive spirometry. Left pleural and right pleural chest tube remained intact to low continuous wall suction -20 cm H2O. No air leak present. Draining thin serosanguineous drainage. Left pleural chest tube drained 110 mL in 8 hours and 400 mL in 24 hours. Right pleural chest tube drained 110 mL in 8 hours, 350 mL in 24 hours. - Cardiovascular Details: Regular rhythm and rate. S1 and S2 present, negative for S3, gallop or murmur. Atrial and ventricular epicardial pacemaker wires present and grounded. Sternum is stable. Bedside telemetry showing normal sinus rhythm heart rate 77. No edema present. Knee-high IGGY hose and sequential compression devices in place to his bilateral lower extremities. Heart hugger is in place and he is demonstrating appropriate use. - Gastrointestinal Gastrointestinal Comment(s): Abdomen is soft, nontender and nondistended. Active bowel sounds all 4 abdominal quadrants. Tolerating oral intake. No bowel movement since surgery. Passing flatus. - Genitourinary Genitourinary Comment(s): Adequate urine output. Huber catheter for accurate I&O. Cloudy kay urine. 750 mL output in the last 8 hours. - Integumentary Integumentary Comment(s): Skin is warm and dry. No clubbing or cyanosis. Midline sternal incision clean dry and well approximated. No redness or drainage present. Dermabond dressing clean and dry. Right lower extremity EVH site to well approximated. No drainage or redness present. Dermabond dressing clean and dry. NINA dressing in place evacuating thin serosanguineous drainage. - Neurologic Neurologic: Present: CNII-XII intact - Musculoskeletal Musculoskeletal: Present: gait normal, strength equal bilaterally - Psychiatric Psychiatric: Present: A&O x's 3, appropriate affect, intact judgment & insight - Allied health notes Allied health notes reviewed: nursing - Labs CBC & Chem 7: 07/14/17 04:45 07/14/17 04:45 Labs: Abnormal Lab Results - Last 24 Hours (Table) 07/13/17 07/14/17 07/14/17 Range/Units 04:30 04:45 04:45 RBC 2.88 L (4.30-5.90) m/uL Hgb 9.3 L (13.0-17.5) gm/dL Hct 26.5 L (39.0-53.0) % Plt Count 89 L (150-450) k/uL Sodium 136 L (137-145) mmol/L Glucose 104 H (74-99) mg/dL POC Glucose (mg/dL) (75-99) mg/dL Iron 6 L (65-175) ug/dL TIBC 184 L (228-460) ug/dL Iron Saturation 3.26 L (15.00-50.00) Ferritin 484.3 H (22.0-322.0) ng/mL Total Protein 5.2 L (6.3-8.2) g/dL Albumin 3.4 L (3.5-5.0) g/dL 07/14/17 07/14/17 Range/Units 07:02 17:14 RBC (4.30-5.90) m/uL Hgb (13.0-17.5) gm/dL Hct (39.0-53.0) % Plt Count (150-450) k/uL Sodium (137-145) mmol/L Glucose (74-99) mg/dL POC Glucose (mg/dL) 121 H 116 H (75-99) mg/dL Iron (65-175) ug/dL TIBC (228-460) ug/dL Iron Saturation (15.00-50.00) Ferritin (22.0-322.0) ng/mL Total Protein (6.3-8.2) g/dL Albumin (3.5-5.0) g/dL - Imaging and Cardiology Chest x-ray: report reviewed, image reviewed Assessment and Plan (1) CAD (coronary artery disease) Current Visit: Yes Status: Chronic Priority: High Code(s): I25.10 - ATHSCL HEART DISEASE OF [place] CORONARY ARTERY W/O ANG PCTRS SNOMED Code(s): 89587371 (2) Psoriasis Current Visit: Yes Status: Chronic Priority: Medium Code(s): L40.9 - PSORIASIS, UNSPECIFIED SNOMED Code(s): 8593074 (3) Family history of early CAD Current Visit: Yes Status: Chronic Code(s): Z82.49 - FAMILY HX OF ISCHEM HEART DIS AND OTH DIS OF THE CIRC SYS SNOMED Code(s): 783899666 (4) Hyperlipidemia Current Visit: Yes Status: Chronic Code(s): E78.5 - HYPERLIPIDEMIA, UNSPECIFIED SNOMED Code(s): 62716708 (5) Presence of stent in coronary artery in patient with coronary artery disease Current Visit: Yes Status: Chronic Code(s): I25.10 - ATHSCL HEART DISEASE OF [place] CORONARY ARTERY W/O ANG PCTRS; Z95.5 - PRESENCE OF CORONARY ANGIOPLASTY IMPLANT AND GRAFT SNOMED Code(s): 289214834 (6) Tobacco dependence Current Visit: Yes Status: Chronic Code(s): F17.200 - NICOTINE DEPENDENCE, UNSPECIFIED, UNCOMPLICATED SNOMED Code(s): 40656882 (7) Hypertension Current Visit: Yes Status: Chronic Priority: Medium Code(s): I10 - ESSENTIAL (PRIMARY) HYPERTENSION SNOMED Code(s): 86595352 (8) Hypothyroid Current Visit: Yes Status: Chronic Priority: Medium Code(s): E03.9 - HYPOTHYROIDISM, UNSPECIFIED SNOMED Code(s): 30189148 Plan: 1. Continue low-dose aspirin, Plavix, subcu heparin, and beta jennifer. We will maximize his beta jennifer as tolerated. 2. Wean oxygen as tolerated to keep his oxygen saturations greater than or equal to 91%. Pulmonary management per Dr. Latnigua's recommendations. 3. Encourage use of his incentive spirometry every hour while awake. 4. Pain control per when necessary orders. Continue Toradol 15 mg IV push every 6 hours. 5. We will remove his right pleural chest tube today and keep his left pleural chest tube to low continuous wall suction. 6. Lasix 20 mg IV push 1 today. 7. We will monitor his daily labs and chest x-ray. 8. We will transfer him to [address] [place] [address] when bed available. 9. Discontinue his Huber catheter and Cordis. 10. GI and DVT prophylaxis. 11. Continue to hold methotrexate. 12. Increase activity as tolerated, consult physical therapy and cardiac rehab. 13. Medical management per primary care service. 14. Further recommendations to follow as the patient progresses in his care. Time with Patient: Greater than 30
[2017-07-14] MEDS: SENNOSIDES-DOCUSATE SODIUM 1 EACH TAB PO SCH (21:26)
[2017-07-14 22:15] LABS: Glucose,Whole Blood 101 mg/dL (75-99)
[2017-07-15] MEDS: KETOROLAC 30 MG/ML 1 ML VIAL IVP SCH ×5 (01:51→23:10)
[2017-07-15 06:00] LABS: Basophils % (A) 0 %; Eosinophils # (A) 0.2 k/uL (0-0.7); Eosinophils % (A) 6 %; HCT 26.8 % (39.0-53.0); HGB 9.4 gm/dL (13.0-17.5); Lymphocytes # (A) 0.8 k/uL (1.0-4.8); Lymphocytes % (A) 18 %; MCH 31.9 pg (25.0-35.0); MCHC 35.2 g/dL (31.0-37.0); MCV 90.5 fL (80.0-100.0); Mean Platelet Volume 8.3; Monocytes # (A) 0.2 k/uL (0-1.0); Monocytes % (A) 4 %; Neutrophils % (A) 67 %; Platelet Count 127 k/uL (150-450); RBC 2.96 m/uL (4.30-5.90); RDW 13.4 % (11.5-15.5); WBC 4.4 k/uL (3.8-10.6)
[2017-07-15 06:16] LABS: Anion Gap 8 mmol/L; Blood Urea Nitrogen 18 mg/dL (9-20); Calcium 8.8 mg/dL (8.4-10.2); Carbon Dioxide 26 mmol/L (22-30); Chloride 102 mmol/L (98-107); Glucose 96 mg/dL (74-99); Magnesium 1.9 mg/dL (1.6-2.3); Phosphorus 4.4 mg/dL (2.5-4.5); Sodium 136 mmol/L (137-145)
[2017-07-15 06:44] LABS: Glucose,Whole Blood 111 mg/dL (75-99)
[2017-07-15] MEDS: INSULIN ASPART 100 UNIT/ML 1 ML 10 ML VIAL SQ SCH ×4 (06:47→21:25)
[2017-07-15] MEDS: PANTOPRAZOLE 40 MG TABLET PO SCH (06:55)
[2017-07-15] MEDS: LEVOTHYROXINE 75 MCG TAB PO SCH (06:55)
--- NOTE | 2017-07-15 08:16 | XR ---
EXAMINATION TYPE: XR chest 1V portable DATE OF EXAM: 07/15/2017 COMPARISON: 07/14/2017 HISTORY: Status post cardiac surgery. Known pneumothoraces. TECHNIQUE: Single frontal view of the chest is obtained. FINDINGS: There is been interval removal of the right-sided thoracostomy tube with resorption of the previously seen pneumothorax and slight visceral pleural reaction at the right lung apex. Right basi lar atelectasis has developed in the interim. Left thoracostomy tube is in place. No left residual pn eumothorax is identified. Left basilar atelectasis is also identified. Mild central pulmonary vascula r congestion, cardiomegaly and postoperative changes of the chest are seen. Osseous structures are in tact. Trace pleural effusions blunt the costophrenic angles. IMPRESSION: 1. Interval removal of the right-sided thoracostomy tube with new right basilar atelectasis. 2. Stable positioning of the left thoracostomy tube with no residual pneumothorax and left basilar at electasis seen. 3. Trace pleural effusions and persistent mild pulmonary vascular congestion.
[2017-07-15] MEDS: IPRATROPIUM-ALBUTEROL 3 ML NEB INHALATION SCH ×4 (08:40→19:36)
[2017-07-15] MEDS: ATORVASTATIN 40 MG TAB PO SCH (08:57)
[2017-07-15] MEDS: ASPIRIN 81 MG PO SCH (08:57)
[2017-07-15] MEDS: HEPARIN SODIUM,PORCINE 5,000 UNIT/ML 1 ML VIAL SQ SCH ×3 (08:57→23:10)
[2017-07-15] MEDS: METOPROLOL TARTRATE 12.5 MG TAB PO SCH (08:58)
[2017-07-15] MEDS: CLOPIDOGREL 75 MG TAB PO SCH (08:58)
[2017-07-15] MEDS ORDERED: FUROSEMIDE 10 MG/ML 2 ML VIAL IV ONE (09:00)
--- NOTE | 2017-07-15 11:20 | P.PN ---
Subjective Progress Note Date: 07/15/17 Principal diagnosis: Status post CABG This is a pleasant 66-year-old who is status post coronary artery bypass grafting surgery. He was seen and examined on the telemetry unit this morning, sitting up in the chair at bedside. Overall progressing quite well. He continues to have a chest tube in place. Blood pressure 118/60, heart rate in the 80s. White blood cell count 4.4, hemoglobin 9.4, platelet count 127. Sodium 136, potassium 4.0, BUN 18, creatinine 0.7. Magnesium 1.9. Remaining in normal sinus rhythm. Objective - Vital Signs Vital signs: Vital Signs Temp 97.7 F 07/15/17 08:00 Pulse 85 07/15/17 09:42 Resp 23 07/15/17 08:00 BP 118/62 07/15/17 09:42 Pulse Ox 92 L 07/15/17 09:42 Intake & Output 07/14/17 07/15/17 07/15/17 18:59 06:59 18:59 Intake Total 1542 960 Output Total 1090 210 0 Balance 452 -210 960 Weight 96.8 kg 89.6 kg Intake: IV 122 0 Albumin Human 5% 250 ml 0 As IVPB .STK-MED ONE Rx#: [id number] Lactated Ringers 1,000 ml 110 @ 20 mls/hr IV .Q24H [facility] Rx#:[id number] NS Pressure Bag 12 Intake, IV Titration 100 Amount Magnesium Sulfate-D5w Pmx 100 1 gm In Dextrose/Water 1 100ml.bag @ 100 mls/hr IVPB Q1H [facility] Rx#: [id number] Oral 1320 960 Output: Chest Tube Drainage 120 210 0 Chest Tube Left Anterior 60 210 0 Chest Chest Tube Right Anterior 60 Chest Drainage 50 Right Calf 50 Urine 920 0 Other: Voiding Method Indwelling Catheter Toilet Toilet # Voids 2 1 # Bowel Movements 2 ABP, PAP, CO, CI - Last Documented Arterial Blood Pressure 159/159 Pulmonary Artery Pressure 21/9 Cardiac Output 7.7 Cardiac Index 3.9 - Exam PHYSICAL EXAMINATION: HEENT: Head is atraumatic, normocephalic. Pupils equal, round. Neck is supple. There is no elevated jugular venous pressure. HEART EXAMINATION: Heart S1, S2 normal. No murmur or gallop heard. CHEST EXAMINATION: Lungs reveal crackles to the left posterior base. ABDOMEN: Soft, nontender. Bowel sounds are heard. No organomegaly noted. EXTREMITIES: 2+ peripheral pulses with no evidence of peripheral edema and no calf tenderness noted. Venodyne's place. NEUROLOGIC patient is awake, alert and oriented -3. . - Labs CBC & Chem 7: 07/15/17 05:40 07/15/17 05:40 Labs: Abnormal Lab Results - Last 24 Hours (Table) 07/14/17 07/14/17 07/15/17 Range/Units 17:14 22:09 05:40 RBC 2.96 L (4.30-5.90) m/uL Hgb 9.4 L (13.0-17.5) gm/dL Hct 26.8 L (39.0-53.0) % Plt Count 127 L (150-450) k/uL Lymphocytes # 0.8 L (1.0-4.8) k/uL Sodium (137-145) mmol/L POC Glucose (mg/dL) 116 H 101 H (75-99) mg/dL 07/15/17 07/15/17 Range/Units 05:40 06:42 RBC (4.30-5.90) m/uL Hgb (13.0-17.5) gm/dL Hct (39.0-53.0) % Plt Count (150-450) k/uL Lymphocytes # (1.0-4.8) k/uL Sodium 136 L (137-145) mmol/L POC Glucose (mg/dL) 111 H (75-99) mg/dL Assessment and Plan Plan: Assessment and plan #1 status post coronary artery bypass grafting surgery #2 hypertension #3 hyperlipidemia #4 hypothyroidism # 5 psoriasis Plan From cardiology's perspective, we will recommend to continue current medications. Patient also has been encouraged regarding the use of his incentive spirometry. DNP note has been reviewed, I agree with a documented findings and plan of care. Patient was seen and examined.
--- NOTE | 2017-07-15 11:42 | P.PN ---
Subjective Progress Note Date: 07/15/17 Principal diagnosis: Triple-vessel coronary artery disease, totally occluded right coronary artery, preserved left ventricular function with a preoperative ejection fraction of 55% , mild dilation of his ascending, hypertension, hyperlipidemia, history of coronary artery disease with previous PTCA in 2000 and [facility], current tobacco dependence, hypothyroid, psoriasis on methotrexate, peripheral arterial disease and family history of early onset coronary artery disease with his father being diagnosed before the age of 60. POD #4, elective coronary artery bypass grafting 4 using the in situ skeletonized right internal mammary artery, crossing the midline to the left anterior descending coronary artery, the skeletonized in situ left internal mammary artery to the ramus intermedius coronary artery, a reverse greater saphenous vein graft from the aorta to the diagonal coronary artery, a reverse greater saphenous vein graft from the aorta to early rising posterior descending coronary artery. Endoscopic harvesting of the right greater saphenous vein. Intraoperative transesophageal echocardiogram and epi-aortic scanning. Intraoperative graft flow measurement using the [employer] Medstim system. Patient is sitting up to the bedside chair. He is in no acute distress. He denies any complaints of pain or shortness of breath at this time. Oxygen saturation are 92% on room air. He is achieving 1000 mL on his incentive spirometry. He is alert and oriented 3. He is tolerating oral intake. Objective - Vital Signs Vital signs: Vital Signs Temp 97.7 F 07/15/17 08:00 Pulse 85 07/15/17 09:42 Resp 23 07/15/17 08:00 BP 118/62 07/15/17 09:42 Pulse Ox 92 L 07/15/17 09:42 Intake & Output 07/14/17 07/15/17 07/15/17 18:59 06:59 18:59 Intake Total 1542 960 Output Total 1090 210 0 Balance 452 -210 960 Weight 96.8 kg 89.6 kg Intake: IV 122 0 Albumin Human 5% 250 ml 0 As IVPB .STK-MED ONE Rx#: [id number] Lactated Ringers 1,000 ml 110 @ 20 mls/hr IV .Q24H [facility] Rx#:[id number] NS Pressure Bag 12 Intake, IV Titration 100 Amount Magnesium Sulfate-D5w Pmx 100 1 gm In Dextrose/Water 1 100ml.bag @ 100 mls/hr IVPB Q1H [facility] Rx#: [id number] Oral 1320 960 Output: Chest Tube Drainage 120 210 0 Chest Tube Left Anterior 60 210 0 Chest Chest Tube Right Anterior 60 Chest Drainage 50 Right Calf 50 Urine 920 0 Other: Voiding Method Indwelling Catheter Toilet Toilet # Voids 2 1 # Bowel Movements 2 ABP, PAP, CO, CI - Last Documented Arterial Blood Pressure 159/159 Pulmonary Artery Pressure 21/9 Cardiac Output 7.7 Cardiac Index 3.9 - Constitutional General appearance: Present: cooperative, no acute distress - EENT ENT: Present: hearing grossly normal - Neck Details: Neck is supple, no JVD or lymphadenopathy. - Respiratory Details: Lung sounds with few scattered crackles throughout. Respirations are symmetrical and nonlabored. Oxygen saturation are 92% on room air. He is achieving 1500 mL on his incentive spirometry. Left pleural chest tube remained intact to low continuous wall suction -20 cm H2O. No air leak present. Draining thin serosanguineous drainage. Left pleural chest tube drained 130 mL in 8 hours and 270 mL in 24 hours. - Cardiovascular Details: Regular rhythm and rate. S1 and S2 present, negative for S3, gallop or murmur. Sternum is stable. Remote telemetry showing normal sinus rhythm heart rate 77. Atrial and ventricular epicardial pacemaker wires intact and grounded. No edema present. Knee-high IGGY hose and sequential compression devices in place to his bilateral lower extremities. Heart hugger is in place and he is demonstrating appropriate use. - Gastrointestinal Gastrointestinal Comment(s): Abdomen is soft, nontender and nondistended. Active bowel sounds to all 4 abdominal quadrants. Tolerating oral intake. Bowel movement today 07/15/2014. - Genitourinary Genitourinary Comment(s): Urine output adequate. Clear kay urine. - Integumentary Integumentary Comment(s): Skin is warm and dry. No clubbing or cyanosis. Midline sternal incision clean dry and well approximated. No redness or drainage present. Dermabond dressing clean and dry. Right lower extremity EVH site to well approximated. No drainage or redness present. Dermabond dressing clean and dry. - Neurologic Neurologic: Present: CNII-XII intact - Musculoskeletal Musculoskeletal: Present: gait normal, strength equal bilaterally - Psychiatric Psychiatric: Present: A&O x's 3, appropriate affect, intact judgment & insight - Allied health notes Allied health notes reviewed: nursing - Labs CBC & Chem 7: 07/15/17 05:40 07/15/17 05:40 Labs: Abnormal Lab Results - Last 24 Hours (Table) 07/14/17 07/14/17 07/15/17 Range/Units 17:14 22:09 05:40 RBC 2.96 L (4.30-5.90) m/uL Hgb 9.4 L (13.0-17.5) gm/dL Hct 26.8 L (39.0-53.0) % Plt Count 127 L (150-450) k/uL Lymphocytes # 0.8 L (1.0-4.8) k/uL Sodium (137-145) mmol/L POC Glucose (mg/dL) 116 H 101 H (75-99) mg/dL 07/15/17 07/15/17 Range/Units 05:40 06:42 RBC (4.30-5.90) m/uL Hgb (13.0-17.5) gm/dL Hct (39.0-53.0) % Plt Count (150-450) k/uL Lymphocytes # (1.0-4.8) k/uL Sodium 136 L (137-145) mmol/L POC Glucose (mg/dL) 111 H (75-99) mg/dL - Imaging and Cardiology Chest x-ray: report reviewed, image reviewed Assessment and Plan (1) CAD (coronary artery disease) Current Visit: Yes Status: Chronic Priority: High Code(s): I25.10 - ATHSCL HEART DISEASE OF [place] CORONARY ARTERY W/O ANG PCTRS SNOMED Code(s): 39807443 (2) Psoriasis Current Visit: Yes Status: Chronic Priority: Medium Code(s): L40.9 - PSORIASIS, UNSPECIFIED SNOMED Code(s): 2946842 (3) Family history of early CAD Current Visit: Yes Status: Chronic Code(s): Z82.49 - FAMILY HX OF ISCHEM HEART DIS AND OTH DIS OF THE CIRC SYS SNOMED Code(s): 004779165 (4) Hyperlipidemia Current Visit: Yes Status: Chronic Code(s): E78.5 - HYPERLIPIDEMIA, UNSPECIFIED SNOMED Code(s): 08658421 (5) Presence of stent in coronary artery in patient with coronary artery disease Current Visit: Yes Status: Chronic Code(s): I25.10 - ATHSCL HEART DISEASE OF [place] CORONARY ARTERY W/O ANG PCTRS; Z95.5 - PRESENCE OF CORONARY ANGIOPLASTY IMPLANT AND GRAFT SNOMED Code(s): 107080108 (6) Tobacco dependence Current Visit: Yes Status: Chronic Code(s): F17.200 - NICOTINE DEPENDENCE, UNSPECIFIED, UNCOMPLICATED SNOMED Code(s): 40197655 (7) Hypertension Current Visit: Yes Status: Chronic Priority: Medium Code(s): I10 - ESSENTIAL (PRIMARY) HYPERTENSION SNOMED Code(s): 80780418 (8) Hypothyroid Current Visit: Yes Status: Chronic Priority: Medium Code(s): E03.9 - HYPOTHYROIDISM, UNSPECIFIED SNOMED Code(s): 37549127 Plan: 1. Continue low-dose aspirin, Plavix, subcu heparin, and beta jennifer. We will increase his metoprolol tartrate to 25 mg by mouth twice a day. 2. Pulmonary management per Dr. Lantigua's recommendations. 3. Encourage use of his incentive spirometry every hour while awake. 4. Pain control per when necessary orders. 5. We will remove his left pleural chest tube today. 6. Lasix 20 mg IV push 1 today. 7. We will monitor his daily labs and chest x-ray. 8. We will remove his epicardial pacemaker wires today. Bedrest for 1 hour post epicardial pacemaker wire removal. 9. GI and DVT prophylaxis. 10. Continue to hold methotrexate. 12. Increase activity as tolerated, physical therapy and cardiac rehab following 13. Medical management per primary care service. 14. Anticipate discharge home within the next [address] in place. 15. Further recommendations to follow as the patient progresses in his care. Epicardial pacemaker wires removed at 1045 this a.m. without incident. Left pleural chest tube removed without incident at 11:40 AM without incident. Sutures secured in place. 4 x 4 dressing to cover and secured with tape. Time with Patient: Greater than 30
[2017-07-15 12:27] LABS: Glucose,Whole Blood 89 mg/dL (75-99)
--- NOTE | 2017-07-15 12:28 | P.PN ---
Subjective Progress Note Date: 07/15/17 Principal diagnosis: Status post CABG, postoperative day #4 this is a 66-year-old white male with triple-vessel coronary artery disease, this was documented on recent cardiac catheterization, patient has preserved LV function. Patient underwent elective myocardial revascularization today, postoperatively he was on mechanical ventilation, and this consult was initiated. Initial ventilator settings with IMV of 12, volume of 550, FiO2 of 100%, and the 5. ABG reflected significant respiratory acidosis, has the patient was placed on assist-control mode of mechanical ventilation initially and a of 16 then increased rate of 20. Repeat ABG is pending. Chest x-ray postoperatively showed adequate placement of endotracheal Q, all lines and chest usual noted to be in place. All labs were reviewed including 2 different sets of ABGs. Patient was reevaluated today on 07/12/2017, he was extubated last night uneventfully, presently on nasal cannula, in no distress, tolerated the extubation well. Chest x-ray today showed tiny bilateral pneumothoraces, and scattered areas of atelectasis. Patient again is asymptomatic, his labs are unremarkable with hemoglobin of 10.2, basic metabolic profile is relatively unremarkable. Patient was reevaluated today on 07/13/2017, sitting in a chair, in no distress. Basically asymptomatic. Denies any shortness of breath, no cough, no wheezing , no chest pain. Chest x-ray was reviewed and it showed mostly postoperative changes. Small right apical pneumothorax was noted, both chest tubes in both sides remain in place, minimal atelectasis at the bases was also noted. Laboratory studies including CBC and basic metabolic profile and renal profile are normal. Reevaluated today on 07/14/2017, doing well, relatively asymptomatic, no cough no wheezing no shortness of breath, chest x-ray and all his labs were reviewed. Patient is doing well with incentive spirometry. And he is presently an overflow from selective Reevaluated today on 07/15/2017, sitting up in the chair, in no distress, asymptomatic, O2 saturation is 92% on room air. Patient continues to do well with incentive spirometry. Relatively asymptomatic, plans are being made for removing his last chest tube today. Objective - Vital Signs Vital signs: Vital Signs Temp 99.3 F 07/15/17 11:23 Pulse 90 07/15/17 12:05 Resp 22 07/15/17 11:23 BP 110/67 07/15/17 11:23 Pulse Ox 92 L 07/15/17 11:23 Intake & Output 07/14/17 07/15/17 07/15/17 18:59 06:59 18:59 Intake Total 1542 960 Output Total 1090 210 0 Balance 452 -210 960 Weight 96.8 kg 89.6 kg Intake: IV 122 0 Albumin Human 5% 250 ml 0 As IVPB .STK-MED ONE Rx#: [id number] Lactated Ringers 1,000 ml 110 @ 20 mls/hr IV .Q24H [facility] Rx#:[id number] NS Pressure Bag 12 Intake, IV Titration 100 Amount Magnesium Sulfate-D5w Pmx 100 1 gm In Dextrose/Water 1 100ml.bag @ 100 mls/hr IVPB Q1H [facility] Rx#: [id number] Oral 1320 960 Output: Chest Tube Drainage 120 210 0 Chest Tube Left Anterior 60 210 0 Chest Chest Tube Right Anterior 60 Chest Drainage 50 Right Calf 50 Urine 920 0 Other: Voiding Method Indwelling Catheter Toilet Toilet # Voids 2 1 # Bowel Movements 2 ABP, PAP, CO, CI - Last Documented Arterial Blood Pressure 159/159 Pulmonary Artery Pressure 21/9 Cardiac Output 7.7 Cardiac Index 3.9 - Exam - Constitutional General appearance: Physical exam revealed a 66-year-old white male, very pleasant, in no distress. - EENT ENT: Slightly dry mucous membranes, throat is clear, PERRLA, EOMI. - Neck No neck masses, no JVD, no stridor. No cervical lymphadenopathy - Respiratory Clear bilaterally, no crackles or rhonchi or wheezes, good breath sound bilaterally. Symmetrical chest expansion. - Cardiovascular Details: Regular rhythm and rate, S1 and S2 present, negative for S3, gallop or murmur. Pericardial rub heard. Sternum is stable. - Gastrointestinal Gastrointestinal Comment(s): Abdomen: Soft, nontender, no megaly, hypoactive bowel sounds. - Genitourinary Genitourinary Comment(s): Fully catheter in place - Integumentary Integumentary Comment(s): Skin is relatively intact. - Neurologic Neurologic: Alert oriented 3, no gross focal neurologic deficit - Musculoskeletal Musculoskeletal: Adequate strength bilaterally. - Psychiatric Psychiatric: Normal mood, affect, and mental status examination. Extremities: No clubbing edema or cyanosis. - Labs CBC & Chem 7: 07/15/17 05:40 07/15/17 05:40 Labs: Abnormal Lab Results - Last 24 Hours (Table) 07/14/17 07/14/17 07/15/17 Range/Units 17:14 22:09 05:40 RBC 2.96 L (4.30-5.90) m/uL Hgb 9.4 L (13.0-17.5) gm/dL Hct 26.8 L (39.0-53.0) % Plt Count 127 L (150-450) k/uL Lymphocytes # 0.8 L (1.0-4.8) k/uL Sodium (137-145) mmol/L POC Glucose (mg/dL) 116 H 101 H (75-99) mg/dL 07/15/17 07/15/17 Range/Units 05:40 06:42 RBC (4.30-5.90) m/uL Hgb (13.0-17.5) gm/dL Hct (39.0-53.0) % Plt Count (150-450) k/uL Lymphocytes # (1.0-4.8) k/uL Sodium 136 L (137-145) mmol/L POC Glucose (mg/dL) 111 H (75-99) mg/dL Assessment and Plan Assessment: Impression: 1 Status post CABG for triple-vessel coronary artery disease postoperative day #4 2 history of multiple comorbidities including hypertension, psoriasis, hypercholesterolemia, and hypothyroidism. Recommendation: Continue present supportive care measures, ambulate, continue incentive spirometry, discharge planning is likely in the next 24 hours. Time with Patient: Less than 30
[2017-07-15] MEDS: FOLIC ACID 1 MG TAB PO SCH (12:35)
--- NOTE | 2017-07-15 13:27 | P.PN ---
Subjective Progress Note Date: 07/15/17 Principal diagnosis: This is a 66-year-old male with history of coronary disease, psoriasis on methotrexate, hypertension, hyperlipidemia, hypothyroidism who presented for elective CABG. 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 At that time echocardiogram showed preserved EF of 55%, trivial tricuspid regurgitation and aortic root 4.5 cm. 3 weeks ago he underwent cardiac catheterization that showed severe and progressive coronary artery disease with stenosis in left main LAD and RCA and diagonal and the in-stent stenosis. He was then referred to cardiothoracic surgery for CABG , he underwent quadruple bypass with both internal mammary arteries and saphenous veins harvesting. He is currently intensive care unit initially was intubated and sedated , had a brief period of respiratory acidosis that was corrected with vent adjustment, later he was successfully extubated on postoperative day one, he has been doing well since then. Insulin drip discontinued and he transitioned to SC insulin per sliding scale for tight glycemic control . cardiothoracic surgery team and the ICU team is continuing his ICU care and management postop. Medicine service is assisting with medical management. Patient has low platelets and low Hgb chronically, this is thought to be due to taking methotrexate (known side effect) he denies any bleeding, other than expected bleeding during surgery , blood draws, and the three chest tubes during his post op care, which is resulting in slight drop of his hemoglobin patient doing well has minimal complaints, reports to be working with his incentive spirometry as directed, also has had some physical therapy and has been ambulatory on the unit. No acute events overnight Objective - Vital Signs Vital signs: Vital Signs Temp 99.3 F 07/15/17 11:23 Pulse 90 07/15/17 12:05 Resp 22 07/15/17 11:23 BP 110/67 07/15/17 11:23 Pulse Ox 92 L 07/15/17 11:23 Intake & Output 07/14/17 07/15/17 07/15/17 18:59 06:59 18:59 Intake Total 1542 960 Output Total 1090 210 0 Balance 452 -210 960 Weight 96.8 kg 89.6 kg Intake: IV 122 0 Albumin Human 5% 250 ml 0 As IVPB .STK-MED ONE Rx#: [id number] Lactated Ringers 1,000 ml 110 @ 20 mls/hr IV .Q24H [facility] Rx#:[id number] NS Pressure Bag 12 Intake, IV Titration 100 Amount Magnesium Sulfate-D5w Pmx 100 1 gm In Dextrose/Water 1 100ml.bag @ 100 mls/hr IVPB Q1H [facility] Rx#: [id number] Oral 1320 960 Output: Chest Tube Drainage 120 210 0 Chest Tube Left Anterior 60 210 0 Chest Chest Tube Right Anterior 60 Chest Drainage 50 Right Calf 50 Urine 920 0 Other: Voiding Method Indwelling Catheter Toilet Toilet # Voids 2 1 # Bowel Movements 2 ABP, PAP, CO, CI - Last Documented Arterial Blood Pressure 159/159 Pulmonary Artery Pressure 21/9 Cardiac Output 7.7 Cardiac Index 3.9 - Exam Constitutional: vital signs stable, Not in acute distress, pleasant, conversant, chest tube in place Lungs: Good breath sounds bilaterally, normal respiratory effort no use of accessory muscles, chest binder in place, surgical dressing in place looks dry and clean and intact over the sternum Cardiovascular: Regular rate and rhythm, no murmurs, no gallops, no rubs, no peripheral edema Gastrointestinal: Soft, no tenderness to palpation,bowel sounds positive Extremities: No digital cyanosis or clubbing, capillary refill is immediate over bilateral big toes , surgical dressing and drain over right leg due to saphenous vein harvesting, Psych: Alert, oriented to place, person and time, appropriate affect, intact judgment - Labs CBC & Chem 7: 07/15/17 05:40 07/15/17 05:40 Labs: Abnormal Lab Results - Last 24 Hours (Table) 07/14/17 07/14/17 07/15/17 Range/Units 17:14 22:09 05:40 RBC 2.96 L (4.30-5.90) m/uL Hgb 9.4 L (13.0-17.5) gm/dL Hct 26.8 L (39.0-53.0) % Plt Count 127 L (150-450) k/uL Lymphocytes # 0.8 L (1.0-4.8) k/uL Sodium (137-145) mmol/L POC Glucose (mg/dL) 116 H 101 H (75-99) mg/dL 07/15/17 07/15/17 Range/Units 05:40 06:42 RBC (4.30-5.90) m/uL Hgb (13.0-17.5) gm/dL Hct (39.0-53.0) % Plt Count (150-450) k/uL Lymphocytes # (1.0-4.8) k/uL Sodium 136 L (137-145) mmol/L POC Glucose (mg/dL) 111 H (75-99) mg/dL Assessment and Plan Plan: #Coronary artery disease status post quadruple bypass postoperative day #3 # CAD Management per cardiothoracic surgery team Patient was extubated successfully on POD #1 pain well controlled he seems to be stable at this point continue ASA, plavix, statin low dose BB #Hypothyroidism, stable Currently on Synthroid TSH suppressed Free T4 at goal No immediate need for changes in his Synthroid dose continue regular follow-up outpatient #Chronic bicytopenia , due to Methotrexate side effect Continue to monitor hemoglobin Transfuse as needed to keep hemoglobin above 7 currently does not seem to be symptomatic from anemia, however patient has very limited activity to evaluate yet. consider discussing with PCP , other options to manage Psoriasis , due to side effects of Methotrexate on blood count Acute blood loss anemia from surgery superimposed on Anemia of chronic/ iron deficiency anemia #Hypertension currently continues to have borderline low normal blood pressure continue to monitor on low dose BB #Psoriasis Continue to hold the methotrexate for at least 2-3 weeks postop, as methotrexate can affect wound healing, If meanwhile psoriasis rebounds with severe symptoms that patient could not tolerate then consider restarting methotrexate. #DVT prophylaxis Patient currently on heparin sc TID consider removing shields catheter, monitor for urinary retention encouraged to use IS.
[2017-07-15 16:48] LABS: Glucose,Whole Blood 140 mg/dL (75-99)
[2017-07-15] MEDS: FERROUS SULFATE 325 MG TAB PO SCH (18:01)
[2017-07-15 21:24] LABS: Glucose,Whole Blood 255 mg/dL (75-99)
[2017-07-15] MEDS: METOPROLOL TARTRATE 25 MG TAB PO SCH (21:24)
[2017-07-15] MEDS: SENNOSIDES-DOCUSATE SODIUM 1 EACH TAB PO SCH (21:24)
[2017-07-16 04:45] VITALS: RESP 18
[2017-07-16] MEDS: KETOROLAC 30 MG/ML 1 ML VIAL IVP SCH (05:04)
[2017-07-16] MEDS: INSULIN ASPART 100 UNIT/ML 1 ML 10 ML VIAL SQ SCH (06:03)
[2017-07-16 06:05] LABS: Glucose,Whole Blood 98 mg/dL (75-99)
[2017-07-16] MEDS: PANTOPRAZOLE 40 MG TABLET PO SCH (06:07)
[2017-07-16] MEDS: LEVOTHYROXINE 75 MCG TAB PO SCH (06:07)
[2017-07-16 06:13] LABS: Basophils % (A) 1 %; Eosinophils # (A) 0.3 k/uL (0-0.7); Eosinophils % (A) 7 %; HCT 27.3 % (39.0-53.0); HGB 9.4 gm/dL (13.0-17.5); Lymphocytes # (A) 1.1 k/uL (1.0-4.8); Lymphocytes % (A) 28 %; MCH 31.5 pg (25.0-35.0); MCHC 34.3 g/dL (31.0-37.0); MCV 91.9 fL (80.0-100.0); Mean Platelet Volume 8.3; Monocytes # (A) 0.3 k/uL (0-1.0); Monocytes % (A) 8 %; Neutrophils # (A) 2.1 k/uL (1.3-7.7); Neutrophils % (A) 53 %; Platelet Count 150 k/uL (150-450); RBC 2.97 m/uL (4.30-5.90); RDW 13.2 % (11.5-15.5)
[2017-07-16 06:16] LABS: Blood Urea Nitrogen 20 mg/dL (9-20); Calcium 8.9 mg/dL (8.4-10.2)
--- NOTE | 2017-07-16 06:25 | XR ---
EXAMINATION TYPE: XR chest 2V DATE OF EXAM: 07/16/2017 HISTORY: post cardiac surgery. REFERENCE: Previous study dated 07/15/2017. FINDINGS: There has been a midline sternotomy. The patient's left pleural drain has been removed. No definite residual pneumothorax is identified. The lungs are overinflated. The lungs now appear clear. Pleural space are clear. Heart size is upper limits of normal. IMPRESSION: IMPROVING POSTOPERATIVE CHANGE.
[2017-07-16 06:30] LABS: Carbon Dioxide 28 mmol/L (22-30); Glucose 94 mg/dL (74-99); Potassium 3.9 mmol/L (3.5-5.1); Sodium 138 mmol/L (137-145)
[2017-07-16 06:37] LABS: Anion Gap 6 mmol/L; Chloride 104 mmol/L (98-107)
[2017-07-16] MEDS: IPRATROPIUM-ALBUTEROL 3 ML NEB INHALATION SCH ×2 (07:49→11:40)
[2017-07-16] MEDS: HEPARIN SODIUM,PORCINE 5,000 UNIT/ML 1 ML VIAL SQ SCH (08:19)
[2017-07-16] MEDS: ASPIRIN 81 MG PO SCH (08:19)
[2017-07-16] MEDS: METOPROLOL TARTRATE 25 MG TAB PO SCH (08:19)
[2017-07-16] MEDS: ATORVASTATIN 40 MG TAB PO SCH (08:19)
[2017-07-16] MEDS: CLOPIDOGREL 75 MG TAB PO SCH (08:19)
[2017-07-16] MEDS: FOLIC ACID 1 MG TAB PO SCH (08:20)
[2017-07-16] MEDS: FERROUS SULFATE 325 MG TAB PO SCH (08:20)
[2017-07-16 09:05] VITALS: BP 102/57; PULSE 89; TEMP 97.3
--- NOTE | 2017-07-16 11:04 | P.DS ---
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: post cardiac surgery Do you want consulting provider notified?: Yes Consult Physician Routine Consulting Provider: Femi Landaverde Consult Reason/Comments: Emergency Spill Response Technician Consult: post cardiac surgery Do you want consulting provider notified?: Yes Primary care physician: Goran Peng - Discharge Diagnosis(es) (1) Peripheral artery disease Current Visit: Yes Status: Chronic (2) CAD (coronary artery disease) Current Visit: Yes Status: Chronic Priority: High (3) Psoriasis Current Visit: Yes Status: Chronic Priority: Medium (4) Family history of early CAD Current Visit: Yes Status: Chronic (5) Hyperlipidemia Current Visit: Yes Status: Chronic (6) Presence of stent in coronary artery in patient with coronary artery disease Current Visit: Yes Status: Chronic (7) Tobacco dependence Current Visit: Yes Status: Chronic (8) Hypertension Current Visit: Yes Status: Chronic Priority: Medium (9) Hypothyroid Current Visit: Yes Status: Chronic Priority: Medium Hospital Course: FINAL DIAGNOSIS: 1. Triple-vessel coronary artery disease, totally occluded right coronary artery 2. History of coronary artery disease with previous PTCA in 2000 3. Preserved left ventricular function with preoperative ejection fraction of 55% 4. Psoriasis, on methotrexate 5. Hypertension 6. Hyperlipidemia 7. Peripheral artery disease 8. Nicotine abuse with preoperative FEV1 94% of predicted 9. Mild dilatation of the ascending aorta 10. Family history of early onset coronary artery disease PRINCIPAL PROCEDURE: 1. Elective coronary artery bypass grafting 4 using the in situ skeletonized right internal mammary artery, crossing the midline to the left anterior descending artery, skeletonized in situ left internal mammary artery to the ramus intermedius artery, reverse saphenous vein graft from the aorta to the diagonal artery, reverse saphenous vein graft from the aorta to the early arising posterior descending artery 2. Endoscopic harvesting of the right greater saphenous vein 3. Intraoperative transesophageal echocardiogram 4. Epi-aortic scanning 5. Intraoperative graft flow measurements HISTORY OF PRESENT ILLNESS: This 66-year-old gentleman presented to his primary care physician with complaints of progressive shortness of breath with activity. An EKG was performed and was abnormal. Subsequently the patient was referred to Dr. Landaverde from cardiology for further workup and evaluation. He underwent stress testing in May [address] depression in his inferolateral leads suggestive of ischemia. A 2-D echocardiogram was completed demonstrating trace mitral regurgitation, trace aortic insufficiency, normal left ventricular function with an ejection fraction of 55%, and a dilated aortic root measuring 4.5 cm. The patient was recommended to undergo heart catheterization which was completed in June 2017 demonstrating chronically occluded mid right coronary artery with re-in-stent stenosis, filling by collaterals from the left coronary system, 70-80% stenosis of the ostial ramus intermedius, 70-80% stenosis of the proximal left anterior descending artery, and 70% stenosis mid portion of the diagonal coronary artery. The patient was seen in consultation with Dr. Murillo from cardiothoracic surgery, coronary artery bypass grafting surgery was recommended , an extensive discussion was had with the patient and his family, risks and benefits were explained, and consent was obtained to proceed with surgery. HOSPITAL COURSE: The patient was brought to the hospital on 07/11/2017, taken to the preoperative area, prepared in the usual fashion, and subsequently taken to the operating room where Dr. Murillo performed an elective coronary artery bypass grafting 4 using the in situ skeletonized right internal mammary artery , crossing the midline to left anterior descending artery, skeletonized in situ left internal mammary artery to the ramus intermedius artery, reverse saphenous vein graft from the aorta to the diagonal artery, reverse saphenous vein graft from the aorta to the early arising posterior descending artery, endoscopic harvesting of the right greater saphenous vein, intraoperative transesophageal echocardiogram, epi-aortic scanning, and intraoperative graft flow measurements using the [employer] system. Upon completion of surgery the patient was transferred to the cardiovascular intensive care unit where he was recovered, monitored hemodynamically, and where he progressed to cardiac rehabilitation phase 1. He was extubated, all lines, tubes, and drips were discontinued when appropriate, and he was transferred to [address] [place] [address] for further monitoring and rehabilitation. His oxygen was titrated down, he continued to work with physical therapy, and was ready to be discharged home on postoperative day #5 with [facility] to follow. He received written and verbal instruction regarding his medications, activity restrictions, signs and symptoms requiring physician notification, and follow-up appointments. COMPLICATIONS: The patient experienced no postoperative complications. Plan - Discharge Summary Discharge Rx Participant: Yes New Discharge Prescriptions: New Aspirin 81 mg PO DAILY #30 chew Atorvastatin [Lipitor] 40 mg PO DAILY #30 tab Clopidogrel [Plavix] 75 mg PO DAILY #30 tab HYDROcodone/APAP 5-325MG [[place] 5-325] 1 - 2 each PO Q6HR PRN #90 tab PRN Reason: Moderate Pain Lisinopril [Zestril] 2.5 mg PO DAILY@1200 #30 tab Pantoprazole [Protonix] 40 mg PO AC-BRKFST #30 tablet.[address] Mccloud-Docusate Sodium [Senokot-S] 2 each PO HS #30 tab Continue Folic Acid 1 mg PO MOTUWETHFRSA Ergocalciferol [Vitamin D2 (DRISDOL)] 50,000 unit PO GOSS Methotrexate Sodium [Methotrexate] 17.5 mg PO GOSS Levothyroxine Sodium [Synthroid] 150 mcg PO QAM Metoprolol Tartrate [Lopressor] 25 mg PO BID #60 tab Discontinued Simvastatin [Zocor] 20 mg PO HS Lisinopril [Zestril] 10 mg PO DAILY Aspirin 325 mg PO DAILY Discharge Medication List Ergocalciferol [Vitamin D2 (DRISDOL)] 50,000 unit PO GOSS 06/15/17 [History] Folic Acid 1 mg PO MOTUWETHFRSA 06/15/17 [History] Levothyroxine Sodium [Synthroid] 150 mcg PO QAM 06/15/17 [History] Methotrexate Sodium [Methotrexate] 17.5 mg PO GOSS 06/15/17 [History] Aspirin 81 mg PO DAILY #30 chew 07/16/17 [Rx] Atorvastatin [Lipitor] 40 mg PO DAILY #30 tab 07/16/17 [Rx] Clopidogrel [Plavix] 75 mg PO DAILY #30 tab 07/16/17 [Rx] HYDROcodone/APAP 5-325MG [[place] 5-325] 1 - 2 each PO Q6HR PRN #90 tab 07/16/17 [ Rx] Lisinopril [Zestril] 2.5 mg PO DAILY@1200 #30 tab 07/16/17 [Rx] Metoprolol Tartrate [Lopressor] 25 mg PO BID #60 tab 07/16/17 [Rx] Pantoprazole [Protonix] 40 mg PO AC-BRKFST #30 tablet. 07/16/17 [Rx] Sennosides-Docusate Sodium [Senokot-S] 2 each PO HS #30 tab 07/16/17 [Rx] Follow up Appointment(s)/Referral(s): Gisela Lantigua MD [STAFF PHYSICIAN] - 07/29/17 1:30 pm Femi Landaverde MD [STAFF PHYSICIAN] - 2 Weeks (Office will call with appointment time) Jamison Murillo MD [STAFF PHYSICIAN] - 08/05/17 11:00 am Goran Peng MD [Primary Care Provider] - 2 Weeks Angus Sandhu NPC [Nurse Practitioner] - 07/22/17 11:00 am Ambulatory/Diagnostic Orders: Complete Blood Count w/diff [LAB.AMB] Time Frame: 3 Days, Location: Determined By Patient Comprehensive Metabolic Panel [LAB.AMB] Time Frame: 3 Days, Location: Determined By Patient Activity/Diet/Wound Care/Special Instructions: Home Care - [facility] - [phone] - please call at time of discharge to notify home care agency he is going home. DISCHARGE INSTRUCTIONS: 1. No driving for 4 weeks, or until physician gives their ok. 2. The patient should sleep in their own bed, no medical bed needed. 3. Stairs are not an issue. If the bedroom is upstairs, it is advised that the patient go up at night and down in the morning for the first week. Go slowly, using handrail and take 1 step at a time. 4. IGGY hose are to be worn for 30 days or until physician discontinues. 5. Heart hugger is to be worn 100% of the time until physician discontinues.( except when showering) 6. No lifting, pushing, or pulling more than 10 pounds for 12 weeks. The physician will advise of any restriction changes. 7. The patient is expected to continue the prescribed walking program. 8. Continue pain control per as needed orders. 9. Continue with incentive spirometry and splinting/heart hugger until otherwise directed by the physician. 10. Must shower daily using liquid antibacterial soap and a separate white washcloth for each individual incision. 11. Routine sternal incision care. No powders, lotions, ointments on incisions. 12. Please call surgeon/SCHOOL TRANSPORTATION SUPERVISOR for temp greater than 101 F or purulent drainage from incisions. 13. All prescriptions given by surgeon for 30 days. Refills need to be filled through pv design engineer/primary care physician. HOME HEALTH SERVICES TO PROVIDE: RN SKILLED HOME CARE SERVICES FOR POST-OP SURGICAL PATIENTS WITH THE FOLLOWING: Coronary Artery Bypass Surgery (CABG), Mitral Valve Replacement/ Repair ( MVR), Aortic Valve Replacement/Repair (AVR) RN TO CONTINUE EDUCATION FROM ``ROAD TO A HEALTH HEART PATIENT EDUCATION MANUAL (GIVEN TO PATIENT IN THE HOSPITAL) MEDICATION RECONCILIATION WITH EDUCATION NEEDED ON FIRST HOME VISIT EMPHASIZE IMPORTANCE OF WEARING BREAST SUPPORT/HEART HUGGER ENCOURAGE USE OF INCENTIVE SPIROMETER 10 X EVERY HOUR WHILE AWAKE ENCOURAGE UTILIZATION OF LOWER EXTREMITY COMPRESSION STOCKINGS/IGGY HOSE and ELEVATE LEGS ABOVE LEVEL OF HEART WHILE AT REST. ENCOURAGE AMBULATION 3-5x/day INCREASING TOLERATES, WHILE AVOID EXTREMES IN TEMPERATURE FREQUENCY: RN TO OPEN THE PATIENT WITHIN 24 HOURS OF DISCHARGE FROM THE HOSPITAL WITH TELEHEALTH INSTALLED AT [facility] [place], RN TO VISIT 2-3 X A WEEK FOR 4 WEEKS ESTABLISHED BY PATIENT NEEDS. REMOVAL OF SUTURES: NURSING SERVICES TO REMOVE SUTURES TWO WEEKS POST SURGICAL DATE 07/25/17. If any questions regarding suture removal please call the office at [phone]. LABORATORY: CBC, CMP TO BE DRAWN ON THE THIRD DAY Tuesday07/19/2017 (RAN STAT) FAX RESULTS TO [phone]. TELEHEALTH PARAMETERS: WEIGHT: NOTIFY MD OF WEIGHT GAIN OF 2 LBS IN 24 HOURS OR 5 LBS IN ONE WEEK HR: NOTIFY MD OF HR <55 BPM OR HR>100 BPM BP: NOTIFY MD IF BP <90/55 OR BP>140/100 O2 SAT: NOTIFY MD IF PO2<93% ON ROOM AIR SEND TELEHEALTH REPORT TO SENIOR CARE PROVIDER AND CARDIOVASCULAR SURGEON THE FIRST WEEK OF CARE AND THEN BI-WEEKLY. PLEASE ADDITIONALLY COMMUNICATE ANY ABNORMALS AND NEW FINDINGS TO THE SURGEONS OFFICE. A Red armband has been placed on the patient. It should be worn for 30 days post surgery and will be removed by the cardiac surgeons. If an ER visit is necessary, please make sure the number on the Red armband is called. Discharge Disposition: HOME WITH HOME HEALTH SERVICES
[2017-07-16 11:38] LABS: Glucose,Whole Blood 83 mg/dL (75-99)
--- NOTE | 2017-07-16 11:38 | P.PN ---
Subjective Progress Note Date: 07/16/17 Principal diagnosis: Status post CABG, postoperative day #5 this is a 66-year-old white male with triple-vessel coronary artery disease, this was documented on recent cardiac catheterization, patient has preserved LV function. Patient underwent elective myocardial revascularization today, postoperatively he was on mechanical ventilation, and this consult was initiated. Initial ventilator settings with IMV of 12, volume of 550, FiO2 of 100%, and the 5. ABG reflected significant respiratory acidosis, has the patient was placed on assist-control mode of mechanical ventilation initially and a of 16 then increased rate of 20. Repeat ABG is pending. Chest x-ray postoperatively showed adequate placement of endotracheal Q, all lines and chest usual noted to be in place. All labs were reviewed including 2 different sets of ABGs. Patient was reevaluated today on 07/12/2017, he was extubated last night uneventfully, presently on nasal cannula, in no distress, tolerated the extubation well. Chest x-ray today showed tiny bilateral pneumothoraces, and scattered areas of atelectasis. Patient again is asymptomatic, his labs are unremarkable with hemoglobin of 10.2, basic metabolic profile is relatively unremarkable. Patient was reevaluated today on 07/13/2017, sitting in a chair, in no distress. Basically asymptomatic. Denies any shortness of breath, no cough, no wheezing , no chest pain. Chest x-ray was reviewed and it showed mostly postoperative changes. Small right apical pneumothorax was noted, both chest tubes in both sides remain in place, minimal atelectasis at the bases was also noted. Laboratory studies including CBC and basic metabolic profile and renal profile are normal. Reevaluated today on 07/14/2017, doing well, relatively asymptomatic, no cough no wheezing no shortness of breath, chest x-ray and all his labs were reviewed. Patient is doing well with incentive spirometry. And he is presently an overflow from selective Reevaluated today on 07/15/2017, sitting up in the chair, in no distress, asymptomatic, O2 saturation is 92% on room air. Patient continues to do well with incentive spirometry. Relatively asymptomatic, plans are being made for removing his last chest tube today. Reevaluated today on 07/16/2017, patient is doing well, asymptomatic, no cough no wheezing no shortness of breath no chest pain, ambulating on his own in the hallway, quite asymptomatic. Objective - Vital Signs Vital signs: Vital Signs Temp 97.3 F L 07/16/17 08:00 Pulse 91 07/16/17 08:01 Resp 18 07/16/17 08:00 BP 102/57 07/16/17 08:00 Pulse Ox 90 L 07/16/17 08:00 Intake & Output 07/15/17 07/16/17 07/16/17 18:59 06:59 18:59 Intake Total 1680 240 Output Total 0 Balance 1680 240 Weight 88.9 kg Intake: IV 0 Albumin Human 5% 250 ml 0 As IVPB .[facility] Rx#: [id number] Oral 1680 240 Output: Chest Tube Drainage 0 Chest Tube Left Anterior 0 Chest Other: Voiding Method Toilet Toilet # Voids 3 1 # Bowel Movements 2 ABP, PAP, CO, CI - Last Documented Arterial Blood Pressure 159/159 Pulmonary Artery Pressure 21/9 Cardiac Output 7.7 Cardiac Index 3.9 - Exam - Constitutional General appearance: Physical exam revealed a 66-year-old white male, very pleasant, in no distress. - EENT ENT: Slightly dry mucous membranes, throat is clear, PERRLA, EOMI. - Neck No neck masses, no JVD, no stridor. No cervical lymphadenopathy - Respiratory Clear bilaterally, no crackles or rhonchi or wheezes, good breath sound bilaterally. Symmetrical chest expansion. - Cardiovascular Details: Regular rhythm and rate, S1 and S2 present, negative for S3, gallop or murmur. Pericardial rub heard. Sternum is stable. - Gastrointestinal Gastrointestinal Comment(s): Abdomen: Soft, nontender, no megaly, hypoactive bowel sounds. - Genitourinary Genitourinary Comment(s): Catheter has been removed - Integumentary Integumentary Comment(s): Skin is relatively intact. - Neurologic Neurologic: Alert oriented 3, no gross focal neurologic deficit - Musculoskeletal Musculoskeletal: Adequate strength bilaterally. - Psychiatric Psychiatric: Normal mood, affect, and mental status examination. Extremities: No clubbing edema or cyanosis. - Labs CBC & Chem 7: 07/16/17 05:51 07/16/17 05:51 Labs: Abnormal Lab Results - Last 24 Hours (Table) 07/15/17 07/15/17 07/16/17 Range/Units 16:45 21:10 05:51 RBC 2.97 L (4.30-5.90) m/uL Hgb 9.4 L (13.0-17.5) gm/dL Hct 27.3 L (39.0-53.0) % POC Glucose (mg/dL) 140 H 255 H (75-99) mg/dL Assessment and Plan Assessment: Impression: 1 Status post CABG for triple-vessel coronary artery disease postoperative day #5 2 history of multiple comorbidities including hypertension, psoriasis, hypercholesterolemia, and hypothyroidism. Recommendation: Agree with discharge planning today follow-up on outpatient basis. Time with Patient: Less than 30
--- NOTE | 2017-07-16 11:48 | P.PN ---
Subjective Progress Note Date: 07/16/17 Principal diagnosis: Status post CABG This is a pleasant 66-year-old who is status post coronary artery bypass grafting surgery. He was seen and examined on the telemetry unit this morning, sitting up in the chair at bedside. Overall progressing quite well. He continues to have a chest tube in place. Blood pressure 118/60, heart rate in the 80s. White blood cell count 4.4, hemoglobin 9.4, platelet count 127. Sodium 136, potassium 4.0, BUN 18, creatinine 0.7. Magnesium 1.9. Remaining in normal sinus rhythm. 07/16/2017 Patient was seen and examined this morning, he's been up ambulating in the hallway most of the day. Denies any chest discomfort, breathing overall has been stable. Blood pressure 102/56, heart rate in the 80s. Hemoglobin 9.4, platelet count 150, sodium 1:30, potassium 3.9, BUN 20, creatinine 0.8. Objective - Vital Signs Vital signs: Vital Signs Temp 97.3 F L 07/16/17 08:00 Pulse 91 07/16/17 08:01 Resp 18 07/16/17 08:00 BP 102/57 07/16/17 08:00 Pulse Ox 90 L 07/16/17 08:00 Intake & Output 07/15/17 07/16/17 07/16/17 18:59 06:59 18:59 Intake Total 1680 240 Output Total 0 Balance 1680 240 Weight 88.9 kg Intake: IV 0 Albumin Human 5% 250 ml 0 As IVPB .[facility] Rx#: [id number] Oral 1680 240 Output: Chest Tube Drainage 0 Chest Tube Left Anterior 0 Chest Other: Voiding Method Toilet Toilet # Voids 3 1 # Bowel Movements 2 ABP, PAP, CO, CI - Last Documented Arterial Blood Pressure 159/159 Pulmonary Artery Pressure 21/9 Cardiac Output 7.7 Cardiac Index 3.9 - Exam PHYSICAL EXAMINATION: HEENT: Head is atraumatic, normocephalic. Pupils equal, round. Neck is supple. There is no elevated jugular venous pressure. HEART EXAMINATION: Heart S1, S2 normal. No murmur or gallop heard. CHEST EXAMINATION: Lungs reveal crackles to the left posterior base. ABDOMEN: Soft, nontender. Bowel sounds are heard. No organomegaly noted. EXTREMITIES: 2+ peripheral pulses with no evidence of peripheral edema and no calf tenderness noted. Venodyne's place. NEUROLOGIC patient is awake, alert and oriented -3. . - Labs CBC & Chem 7: 07/16/17 05:51 07/16/17 05:51 Labs: Abnormal Lab Results - Last 24 Hours (Table) 07/15/17 07/15/17 07/16/17 Range/Units 16:45 21:10 05:51 RBC 2.97 L (4.30-5.90) m/uL Hgb 9.4 L (13.0-17.5) gm/dL Hct 27.3 L (39.0-53.0) % POC Glucose (mg/dL) 140 H 255 H (75-99) mg/dL Assessment and Plan Plan: Assessment and plan #1 status post coronary artery bypass grafting surgery #2 hypertension #3 hyperlipidemia #4 hypothyroidism # 5 psoriasis Plan From cardiology's perspective, we will recommend to continue current medications. He may be able to be discharged once cleared by cardiothoracic surgery. A follow-up appointment will be made with Dr. Reynolds in the office post discharge. DNP note has been reviewed, I agree with a documented findings and plan of care. Patient was seen and examined.
[2017-07-16] MEDS ORDERED: LISINOPRIL 2.5 MG TAB PO SCH (12:00)
--- NOTE | 2017-07-16 12:41 | P.PN ---
Subjective Progress Note Date: 07/16/17 Principal diagnosis: This is a 66-year-old male with history of coronary disease, psoriasis on methotrexate, hypertension, hyperlipidemia, hypothyroidism who presented for elective CABG. 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 At that time echocardiogram showed preserved EF of 55%, trivial tricuspid regurgitation and aortic root 4.5 cm. 3 weeks ago he underwent cardiac catheterization that showed severe and progressive coronary artery disease with stenosis in left main LAD and RCA and diagonal and the in-stent stenosis. He was then referred to cardiothoracic surgery for CABG , he underwent quadruple bypass with both internal mammary arteries and saphenous veins harvesting. He is currently intensive care unit initially was intubated and sedated , had a brief period of respiratory acidosis that was corrected with vent adjustment, later he was successfully extubated on postoperative day one, he has been doing well since then. Insulin drip discontinued and he transitioned to SC insulin per sliding scale for tight glycemic control . cardiothoracic surgery team and the ICU team is continuing his ICU care and management postop. Medicine service is assisting with medical management. Patient has low platelets and low Hgb chronically, this is thought to be due to taking methotrexate (known side effect) he denies any bleeding, other than expected bleeding during surgery , blood draws, and the three chest tubes during his post op care, which is resulting in slight drop of his hemoglobin patient doing well has minimal complaints, reports to be working with his incentive spirometry as directed, also has had some physical therapy and has been ambulatory on the unit. No acute events overnight Objective - Vital Signs Vital signs: Vital Signs Temp 97.3 F L 07/16/17 08:00 Pulse 91 07/16/17 08:01 Resp 18 07/16/17 08:00 BP 102/57 07/16/17 08:00 Pulse Ox 90 L 07/16/17 08:00 Intake & Output 07/15/17 07/16/17 07/16/17 18:59 06:59 18:59 Intake Total 1680 240 Output Total 0 Balance 1680 240 Weight 88.9 kg Intake: IV 0 Albumin Human 5% 250 ml 0 As IVPB .[facility] Rx#: [id number] Oral 1680 240 Output: Chest Tube Drainage 0 Chest Tube Left Anterior 0 Chest Other: Voiding Method Toilet Toilet # Voids 3 1 # Bowel Movements 2 ABP, PAP, CO, CI - Last Documented Arterial Blood Pressure 159/159 Pulmonary Artery Pressure 21/9 Cardiac Output 7.7 Cardiac Index 3.9 - Exam Constitutional: vital signs stable, Not in acute distress, pleasant, conversant, chest tube in place Lungs: Good breath sounds bilaterally, normal respiratory effort no use of accessory muscles, chest binder in place, surgical dressing in place looks dry and clean and intact over the sternum Cardiovascular: Regular rate and rhythm, no murmurs, no gallops, no rubs, no peripheral edema Gastrointestinal: Soft, no tenderness to palpation,bowel sounds positive Extremities: No digital cyanosis or clubbing, capillary refill is immediate over bilateral big toes , surgical dressing and drain over right leg due to saphenous vein harvesting, Psych: Alert, oriented to place, person and time, appropriate affect, intact judgment - Labs CBC & Chem 7: 07/16/17 05:51 07/16/17 05:51 Labs: Abnormal Lab Results - Last 24 Hours (Table) 07/15/17 07/15/17 07/16/17 Range/Units 16:45 21:10 05:51 RBC 2.97 L (4.30-5.90) m/uL Hgb 9.4 L (13.0-17.5) gm/dL Hct 27.3 L (39.0-53.0) % POC Glucose (mg/dL) 140 H 255 H (75-99) mg/dL Assessment and Plan Assessment: This is a 66-year-old male with history of coronary disease, psoriasis on methotrexate, hypertension, hyperlipidemia, hypothyroidism who presented for elective CABG. 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 At that time echocardiogram showed preserved EF of 55%, trivial tricuspid regurgitation and aortic root 4.5 cm. 3 weeks ago he underwent cardiac catheterization that showed severe and progressive coronary artery disease with stenosis in left main LAD and RCA and diagonal and the in-stent stenosis. He was then referred to cardiothoracic surgery for CABG , he underwent quadruple bypass with both internal mammary arteries and saphenous veins harvesting. He is currently intensive care unit initially was intubated and sedated , had a brief period of respiratory acidosis that was corrected with vent adjustment, later he was successfully extubated on postoperative day one, he has been doing well since then. Insulin drip discontinued and he transitioned to SC insulin per sliding scale for tight glycemic control . cardiothoracic surgery team and the ICU team is continuing his ICU care and management postop. Medicine service is assisting with medical management. Patient has low platelets and low Hgb chronically, this is thought to be due to taking methotrexate (known side effect) he denies any bleeding, other than expected bleeding during surgery , blood draws, and the three chest tubes during his post op care, which is resulting in slight drop of his hemoglobin Plan: #Coronary artery disease status post quadruple bypass postoperative day #5 # CAD Management per cardiothoracic surgery team Patient was extubated successfully on POD #1 pain well controlled he seems to be stable at this point continue ASA, plavix, statin low dose BB #Hypothyroidism, stable Currently on Synthroid TSH suppressed Free T4 at goal No immediate need for changes in his Synthroid dose continue regular follow-up outpatient #Chronic bicytopenia , due to Methotrexate side effect Continue to monitor hemoglobin Transfuse as needed to keep hemoglobin above 7 currently does not seem to be symptomatic from anemia, however patient has very limited activity to evaluate yet. consider discussing with PCP , other options to manage Psoriasis , due to side effects of Methotrexate on blood count Acute blood loss anemia from surgery superimposed on Anemia of chronic/ iron deficiency anemia #Hypertension currently continues to have borderline low normal blood pressure continue to monitor on low dose BB #Psoriasis Continue to hold the methotrexate for at least 2-3 weeks postop, as methotrexate can affect wound healing, If meanwhile psoriasis rebounds with severe symptoms that patient could not tolerate then consider restarting methotrexate. #DVT prophylaxis Patient currently on heparin sc TID consider removing shields catheter, monitor for urinary retention encouraged to use IS.
== END 2017-07-16 12:22 | disposition home health service (06) | DRG 235 ==
LOC: 2ORMAIN 05:37 → 6ICU 16:19 → 6SEL 07-14 20:47
PROVIDERS: ADMIT Surgery; ATTEND Surgery
PROC: 021109W Bypass Coronary Artery, Two Arteries from Aorta with Autologous Venous Tissue, Open Approach (ICD-10-PCS; 2017-07-11)
PROC: 06BP4ZZ Excision of Right Saphenous Vein, Percutaneous Endoscopic Approach (ICD-10-PCS; 2017-07-11)
PROC: 5A1221Z Performance of Cardiac Output, Continuous (ICD-10-PCS; 2017-07-11)
PROC: B246ZZ4 Ultrasonography of Right and Left Heart, Transesophageal (ICD-10-PCS; 2017-07-11)
PROC: 5A1223Z Performance of Cardiac Pacing, Continuous (ICD-10-PCS; 2017-07-11)
PROC: 4A0305C Measurement of Arterial Flow, Coronary, Open Approach (ICD-10-PCS; 2017-07-11)
PROC: 30253N0 (ICD-10-PCS; 2017-07-11)
PROC: 02100Z8 Bypass Coronary Artery, One Artery from Right Internal Mammary, Open Approach (ICD-10-PCS; principal; 2017-07-11 08:00)
PROC: 02100Z9 Bypass Coronary Artery, One Artery from Left Internal Mammary, Open Approach (ICD-10-PCS; 2017-07-11 08:00)
DX: I25.10 Atherosclerotic heart disease of native coronary artery without angina pectoris (principal); J96.02 Acute respiratory failure with hypercapnia; E87.2 Acidosis; T82.855A Stenosis of coronary artery stent, initial encounter; D69.6 Thrombocytopenia, unspecified; I25.82 Chronic total occlusion of coronary artery; D62 Acute posthemorrhagic anemia; I35.1 Nonrheumatic aortic (valve) insufficiency; I77.810 Thoracic aortic ectasia; I49.40 Unspecified premature depolarization; I10 Essential (primary) hypertension; E78.5 Hyperlipidemia, unspecified; D50.9 Iron deficiency anemia, unspecified; I73.9 Peripheral vascular disease, unspecified; F17.290 Nicotine dependence, other tobacco product, uncomplicated; E78.00 Pure hypercholesterolemia, unspecified; E03.9 Hypothyroidism, unspecified; Q82.5 Congenital non-neoplastic nevus; L40.9 Psoriasis, unspecified; Z79.82 Long term (current) use of aspirin; Z79.899 Other long term (current) drug therapy; Z98.1 Arthrodesis status; Z95.5 Presence of coronary angioplasty implant and graft; Z90.49 Acquired absence of other specified parts of digestive tract; Z82.49 Family history of ischemic heart disease and other diseases of the circulatory system; Y84.0 Cardiac catheterization as the cause of abnormal reaction of the patient, or of later complication, without mention of misadventure at the time of the procedure
CPT/HCPCS: 71045; 71046; 80048; 80053; 82330; 82728; 82805; 83036; 83540; 83550; 83735; 84100; 84132; 85025; 85520; 85610; 85730; 86850; 86891; 86900; 86901; 86920; 94002; 94003; 94640; 94760